=== PATIENT | female | born 1965 | race Caucasian/White ===

== ENCOUNTER → 2017-08-07 | Outpatient (CLI) | payer OTHER ==
--- NOTE | 2017-08-07 11:42 | US ---
EXAMINATION TYPE: US abdomen limited DATE OF EXAM: 08/07/2017 COMPARISON: Limited abdominal ultrasound June 14, 2016 CLINICAL HISTORY: ABN Labs R94.5. Abnormal labs EXAM MEASUREMENTS: Liver Length: 21.1 cm Gallbladder Wall: 0.3 cm CBD: 0.4 cm Right Kidney: 11.1 x 4.7 x 5.3 cm Pancreas: Obscured by bowel gas Liver: enlarged, attenuating, heterogeneous Gallbladder: no evidence of stones Evidence for sonographic Sierra's sign: No CBD: appears wnl Right Kidney: no evidence of hydronephrosis or mass Persistent heterogeneous hyperechoic appearance of liver without intrahepatic ductal dilatation. Eval uation for focal masses suboptimal due to the heterogeneity. IMPRESSION: Stable appearance of liver could reflect diffuse fatty infiltration or product of underly ing hepatocellular disease. Imaging guided random biopsy for tissue analysis can be performed if tam red.
== END | disposition home or self-care (01) ==
LOC: RADUSWWP 08:55
PROVIDERS: ATTEND Family Medicine
DX: R94.5 Abnormal results of liver function studies (principal)
CPT/HCPCS: 76705

== ENCOUNTER 2019-12-15 09:21 | Inpatient (IN) | payer OTHER ==
[2019-12-15] MEDS ORDERED: HYDROmorphone 0.5 MG/0.5 ML SYRINGE IVP PRN (11:11)
[2019-12-15 11:53] LABS: Glucose,Whole Blood 131 mg/dL (75-99)
[2019-12-15] MEDS ORDERED: INFLUENZA VACCINE (6 MOS+) 60 MCG/0.5 ML SYRINGE IM ONE (12:29)
[2019-12-15 12:30] LABS: ALT 56 U/L (4-34); AST 47 U/L (14-36); African American GFR (CKD) >90 (>60 ml/min/1.73 sqM); Albumin 3.6 g/dL (3.5-5.0); Alkaline Phosphatase 146 U/L (38-126); Anion Gap 10 mmol/L; Blood Urea Nitrogen 12 mg/dL (7-17); Calcium 8.7 mg/dL (8.4-10.2); Carbon Dioxide 30 mmol/L (22-30); Chloride 92 mmol/L (98-107); Glucose 116 mg/dL (74-99); Non-African American GFR(CKD) >90 (>60 ml/min/1.73 sqM); Sodium 132 mmol/L (137-145); Total Bilirubin 0.7 mg/dL (0.2-1.3); Total Protein 6.7 g/dL (6.3-8.2)
[2019-12-15 12:42] LABS: Anisocytosis Slight; HCT 42.3 % (34.0-46.0); HGB 13.5 gm/dL (11.4-16.0); MCH 25.8 pg (25.0-35.0); MCV 80.7 fL (80.0-100.0); Mean Platelet Volume 11.3; Platelet Count 291 k/uL (150-450); RBC 5.24 m/uL (3.80-5.40); RDW 16.2 % (11.5-15.5)
[2019-12-15 13:01] LABS: Band Neutrophils % 2 %; Lymphocytes # (M) 1.95 k/uL (1.0-4.8); Monocytes # (M) 1.05 k/uL (0-1.0); Neutrophils % (M) 79 %; Nucleated Red Blood Cells 0 /100 WBC (0-0); Total Cells Counted 200
[2019-12-15 13:02] LABS: Poikilocytosis (M) Present
[2019-12-15 13:22] LABS: Potassium 2.5 mmol/L (3.5-5.1)
[2019-12-15] MEDS ORDERED: Potassium Replacement Protocol 1 EACH MISC MISCELLANE PRN ×2 (13:24→15:13)
[2019-12-15] MEDS: SODIUM CHLORIDE 0.9% 1,000 ML IV SCH (13:27)
[2019-12-15] MEDS: POTASSIUM CHLORIDE 10 MEQ in WATER FOR INJECTION 1 100ML.BAG IVPB SCH ×6 (14:27→22:29)
[2019-12-15 15:04] LABS: ABG Base Excess 7.2 mmol/L; ABG HCO3 30 mmol/L (21-25); ABG Oxygen Saturation 91.3 % (94-97); ABG PCO2 34 mmHg (35-45); ABG PH 7.55 (7.35-7.45); ABG TCO2 31 mmol/L (19-24); Allen Test Performed? Yes
[2019-12-15 15:12] LABS: ABG PO2 57 mmHg (83-108)
[2019-12-15] MEDS ORDERED: Magnesium Replacement Protocol 1 EACH MISC MISCELLANE PRN (15:14)
--- NOTE | 2019-12-15 15:58 | CT ---
EXAMINATION TYPE: CT brain wo con DATE OF EXAM: 12/15/2019 HISTORY: Altered mental status. CT DLP: 1047.1 mGycm. Automated Exposure Control for Dose Reduction was Utilized. TECHNIQUE: CT scan of the head is performed without contrast. COMPARISON: None. FINDINGS: There is no acute intracranial hemorrhage or midline shift identified. There is diffuse v entricular and sulcal prominence consistent with diffuse age-related cerebral atrophy. There is low- attenuation in the periventricular white matter consistent with chronic small vessel ischemic change. Mild to moderate mucosal thickening involving the right maxillary sinus and posterior aspect right s phenoid sinus. Sucl-[id number]-onouldnw mucosal thickening right ethmoid sinuses. Some patchy fluid anteriorl y right sphenoid sinus. Globes are intact bilaterally. Left-sided paranasal sinuses are clear. Nasal septum deviated to left of midline. Asymmetric appearance to temporomandibular joints with narrowing on the left, there is asymmetric widening on the right coronal image 30. Correlate clinically . Posit ioning fairly satisfactory on sagittal images. IMPRESSION: No acute intracranial hemorrhage or midline shift. There is mild diffuse age-related ce rebral atrophy and chronic small vessel ischemic change noted. Acute on chronic right paranasal sinu s disease is present.
[2019-12-15] MEDS ORDERED: PIPERACILLIN-TAZOBACTAM 3.375 GM in SODIUM CHLORIDE 0.9% 100 ML IVPB SCH (16:00)
--- NOTE | 2019-12-15 16:17 | CT ---
EXAMINATION TYPE: CT soft tissue neck w con DATE OF EXAM: 12/15/2019 HISTORY: Mandibular abscess. COMPARISON: NONE CT DLP: 472.9 mGycm. Automated Exposure Control for Dose Reduction was Utilized. TECHNIQUE: CT scan of the neck is performed with IV Contrast, patient injected with 60 mL of Isovue 370, axial images are obtained, coronal and sagittal reformatted images are reviewed. FINDINGS: Please refer to same day CT chest report for complete details on upper lungs. Airway: There is debris or secretions filling the nasopharyngeal airway. Oropharyngeal airway shows m oderate lobulated narrowing for reference sagittal image 53. Some more secretions also identified wit hin the vallecula. Hypopharyngeal airway is patent. Thyroid gland within normal limits Parotid/submandibular glands: Submandibular glands show mild asymmetric right-sided enlargement presu med reactive inflammatory change from submandibular inflammation and abscess. Unremarkable left parot id gland. Carotid/Vascular Structures: No significant focal plaque or stenosis carotid bulb level bilaterally. Dominant right vertebral artery. Vertebral arteries are patent to basilar junction. Bovine type arch which is normal variant. Osseous Structures: Slight dextroconvex scoliotic curvature. Other: Asymmetric moderate to severe soft tissue swelling and subcutaneous edema right submandibular level. There is large irregular enhancing fluid collection posterior to the mandibular angle involvin g the portions of the parotid gland extending centrally past the midline into the prevertebral soft t issue. It is lobulated and/or multiloculated measuring nearly 8 cm transversely by 7 cm craniocaudal dimension by roughly just over 4 cm AP diameter axial Image 63 and coronal image 26. There is enlarge ment of the right-sided masseter muscles. There is adjacent adenopathy for reference and 1.6 x 1.3 cm lymph node anterior to the carotid and jugular vessels axial image 54 is noted. There is some midlin e shift of the airway estimated 9 mm coronal image 29. Fullness of the right sided palatine tonsil wi th mucosal enhancement and fullness of the right fossa of Rosenmuller in the posterior nasopharynx ax ial image 70 are both noted. IMPRESSION: Significant right-sided multiloculated abscess as detailed above extending past left of m idline causing mass effect on the nasopharyngeal and oropharyngeal airway. Critical results communicated to patient's nurse via telephone at time of dictation. A Red level critical message alert has been initiated for Israel Anderson MD via the [employer] Critical Results System on 12/15/2019 4:15 PM. This message alert has been sent to Israel Anderson MD via the preferences provided by the clinician for the receipt of Radiology Critical Findings. Message ID [id number].
[2019-12-15] MEDS ORDERED: DEXAMETHASONE SOD PHOSPHATE 10 MG/ML 1 ML VIAL IV STA ×2 (16:21→21:28)
--- NOTE | 2019-12-15 16:29 | P.CNPUL ---
History of Present Illness Consult date: 12/15/19 Reason for consult: dyspnea, COPD, hypoxemia Chief complaint: Shortness of breath and right oral facial swelling History of present illness: This is a 54-year-old female with extensive history of smoking and nicotine abus e has a baseline COPD, patient also has a history of type 2 diabetes mellitus with history of hypertension and hypertensive cardiovascular disease has been on Coumadin as well with history of chronic persistent asthma hypothyroidism came into the hospital about 2-3 day history of increased swelling on the right face and mandibular area patient noted to be short of breath and hypoxia I was asked to evaluate the patient further and arterial blood gas was performed revealed metabolic and respiratory alkalosis along with hypoxia patient has been recommended to be placed on airflow patient's computed tomography scan is positive for large mandibular abscess patient is now being transferred to the ICU oral surgery on consult patient likely will undergo surgery later on today care plan discussed with infectious disease as well Review of Systems All systems: negative Past Medical History Past Medical History: Diabetes Mellitus, Eye Disorder, Fibromyalgia, Hypertension, Osteoarthritis (OA), Seizure Disorder, Thyroid Disorder, Vascular Disorder Additional Past Medical History / Comment(s): NIDDM type II, last seizure 12/2013, hypothyroid, PVD/PAD, bilateral eyes astigmatic, migraines, pa lpitations, anemia, chronic cough, seasonal allergies, sinus problems, hemorrhoids, RLS, arthritis in multiple joints, chronic back pain, L sided sciatica, bilateral carpal tunnel syndrome, past fractured tailbone, UTI, occasional urine incontinence, R foot cellulitis/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 Past Anesthesia/Blood Transfusion Reactions: No Reported Reaction Additional Past Anesthesia/Blood Transfusion Reaction / Comment(s): Pt has received blood in the past without reaction. Smoking Status: Current every day smoker - Past Family History Father Family Medical History: COPD Additional Family Medical History / Comment(s): Father of COPD. He was a smoker. Mother Family Medical History: No Reported History Additional Family Medical History / Comment(s): Mother is 87yrs old and healthy. Medications and Allergies Home Medications Medication Instructions Recorded Confirmed Type DULoxetine HCL [Cymbalta] 60 mg PO BID 03/23/14 12/15/19 History Ergocalciferol [Vitamin D2 50,000 unit PO WE 03/23/14 12/15/19 History (DRISDOL)] Hydrochlorothiazide [Hydrodiuril] 25 mg PO DAILY 03/23/14 12/15/19 History Levothyroxine Sodium [Synthroid] 125 mcg PO DAILY 03/23/14 12/15/19 History Montelukast [Singulair] 10 mg PO DAILY 03/23/14 12/15/19 History Pregabalin [Lyrica] 75 mg PO BID 03/23/14 12/15/19 History Topiramate [Topamax] 50 mg PO DAILY 03/23/14 12/15/19 History amLODIPine [Norvasc] 10 mg PO DAILY 03/23/14 12/15/19 History Rivastigmine Tartrate 3 mg PO DAILY 09/04/16 12/15/19 History [Rivastigmine] clonazePAM [Clonazepam] 1 mg PO QAM 09/04/16 12/15/19 History clonazePAM [Clonazepam] 2 mg PO HS 09/04/16 12/15/19 History metFORMIN HCL [Glucophage] 500 mg PO DAILY 09/04/16 12/15/19 History Lurasidone [Latuda] 80 mg PO DAILY 12/15/19 12/15/19 History Warfarin [Coumadin] 5 mg PO DAILY 12/15/19 12/15/19 History rOPINIRole HCL [Requip] 1 mg PO BID 12/15/19 12/15/19 History traMADol HCL [Ultram] 50 mg PO DAILY 12/15/19 12/15/19 History Allergies Allergy/AdvReac Type Severity Reaction Status Date / Time No Known Allergies Allergy Verified 12/15/19 11:32 Physical Exam Vitals: Vital Signs Temp Pulse Resp BP Pulse Ox 12/15/19 13:39 92 L 12/15/19 09:55 100.5 F H 77 18 115/69 92 L Intake and Output 12/15/19 12/15/19 12/15/19 06:59 14:59 22:59 Other: Weight 82 kg - Constitutional General appearance: average body habitus, disheveled, mild distress - EENT Limited oral visibility is present due to swelling of the face and abscess in right mandibular region Eyes: PERRLA ENT: pharyngeal erythema, tonsillar swelling Ears: bilateral: normal - Respiratory Respiratory: bilateral: diminished, negative: dullness, rales, rhonchi, wheezing, prolonged expiration, prolonged inspiration - Cardiovascular Rhythm: regular Heart sounds: normal: S1, S2 - Gastrointestinal General gastrointestinal: normal bowel sounds - Integumentary Integumentary: normal turgor - Neurologic Neurologic: CNII-XII intact - Musculoskeletal Musculoskeletal: gait normal, generalized weakness, strength equal bilaterally - Psychiatric Psychiatric: A&O x's 3, appropriate affect, intact judgment & insight Results - Laboratory Findings CBC and BMP: 12/15/19 11:36 12/15/19 11:36 PT/INR, D-dimer D-Dimer 0.41 mg/L FEU (<0.60) 12/15/19 11:36 Abnormal lab findings: Abnormal Labs 12/15/19 12/15/19 12/15/19 11:36 11:36 11:49 WBC 15.0 H RDW 16.2 H Neutrophils # (Manual) 12.10 H Monocytes # (Manual) 1.05 H Sodium 132 L Potassium 2.5 L* Chloride 92 L Glucose 116 H POC Glucose (mg/dL) 131 H AST 47 H ALT 56 H Alkaline Phosphatase 146 H - Diagnostic Findings Additional studies: Computed tomography scan of the neck and reviewed revealing large mandibular abscess on the right side Assessment and Plan Assessment: Large mandibular abscesses on the right side Severe sepsis related to that Acute hypoxic respiratory failure multifactorial processes including sepsis due to mandibular abscess and Baseline COPD Severe hypokalemia Metabolic and respiratory alkalosis due to hyperventilation and hypokalemia Morbid obesity Anticoagulated On Coumadin Plan: Breathing treatments Broad-spectrum Antibiotics with anaerobic coverage ID and oral surgery consult Airvo high flow oxygen Ammann keep saturation over 90-93% Transferred to ICU Replace potassium Check PT/INR Gentle rehydration Further recommendations pending plan of care as per clinical response of the patient Time with Patient: Greater than 30
--- NOTE | 2019-12-15 16:43 | CT ---
EXAMINATION TYPE: CT chest angio for PE DATE OF EXAM: 12/15/2019 COMPARISON: NONE HISTORY: Shortness of breath. CT DLP: 424.5 mGycm. Automated Exposure Control for Dose Reduction was Utilized. CONTRAST: CTA scan of the thorax is performed with IV Contrast, patient injected with 60 mL of Isovue 370, pulm onary embolism protocol. MIP Images are created on CT scanner and reviewed. FINDINGS: LUNGS: Significant respiratory motion artifact degradation makes evaluation suboptimal. Dependent ate lectasis bilateral lower lobes. There are additional areas of consolidation and/or atelectasis branch service representative ior right greater than left bases. No pleural effusion or pneumothorax noted bilaterally. There is doss spected 9 x 7 mm right basilar nodule axial image 99 that warrants follow-up. MEDIASTINUM: There is suboptimal study with significant respiratory motion artifact degradation in ad dition there is heterogeneity with near equal contrast in right and left heart systems, there is no l arge saddle central pulmonary embolism. Smaller segmental and subsegmental PE not entirely excluded o n this exam. There are no greater than 1 cm hilar or mediastinal lymph nodes. Prominent but subcentim eter prevascular and pericarinal lymph nodes are present. Mild cardiomegaly. Trace pericardial effusi on anterior inferior right aspect. OTHER: Liver are diffusely low dense consistent with fatty infiltration. IMPRESSION: 1. Suboptimal study without central pulmonary embolism. Smaller segmental and subsegmental PE cannot be excluded on this exam. 2. Cardiomegaly with scattered areas of atelectasis. Additional areas of consolidation and/or atelect asis posterior right greater than left bases present. Correlate for multifocal pneumonia. 3. Suboptimal evaluation of subcentimeter nodules due to patient's inability to hold breath. Suspicio us 9 x 7 mm right basilar nodule noted. Follow-up imaging advised when patient is more clinically sta ble to reassess.
[2019-12-15 16:56] LABS: Glucose,Whole Blood 110 mg/dL (75-99)
[2019-12-15 17:20] LABS: INR 6.9 (<1.2)
[2019-12-15] MEDS ORDERED: PHYTONADIONE 10 MG in SODIUM CHLORIDE 0.9% 50 ML IVPB STA (17:47)
[2019-12-15] MEDS ORDERED: LIDOCAINE 2% (PF) 20 MG/ML 5 ML VIAL INHALATION ONE (18:58)
[2019-12-15] MEDS ORDERED: ALBUTEROL NEBULIZED 2.5 MG/3 ML INHALATION STA (18:59)
[2019-12-15] MEDS ORDERED: fentaNYL (PF) 50 MCG/ML 2 ML AMP ONE (19:17)
[2019-12-15] MEDS ORDERED: MIDAZOLAM 2 MG/2 ML VIAL ONE (19:17)
[2019-12-15] MEDS ORDERED: ROCURONIUM BROMIDE 10 MG/ML 10 ML VIAL IV ONE (19:17)
[2019-12-15] MEDS ORDERED: PROPOFOL 10 MG/ML 20 ML VIAL IV ONE (19:17)
[2019-12-15] MEDS ORDERED: DEXAMETHASONE SOD PHOS (MDV) 100 MG/10 ML VIAL ONE (19:17)
[2019-12-15] MEDS ORDERED: HYDROmorphone (PF) 1 MG/ML ONE (19:17)
[2019-12-15] MEDS ORDERED: LIDOCAINE 1% INJ 10MG/ML (20 ML MDV) ONE (19:17)
[2019-12-15] MEDS ORDERED: ONDANSETRON 4 MG/2 ML VIAL ONE (19:17)
[2019-12-15] MEDS ORDERED: SODIUM CHLORIDE 0.9% 1,000 ML IV ONE ×3 (19:25)
[2019-12-15] MEDS ORDERED: LIDOCAINE 2%-EPI 1:100,000 20 ML VIAL SQ ONE ×2 (19:51)
[2019-12-15] MEDS ORDERED: SODIUM CHLORIDE 0.9% 100 ML with ceFAZolin 2,000 MG IV ONE ×2 (19:54)
[2019-12-15] MEDS ORDERED: SODIUM CHLORIDE 0.9% 50 ML with CLINDAMYCIN 600 MG IV ONE ×4 (20:22)
[2019-12-15] MEDS ORDERED: NALOXONE 0.4 MG/ML 1 ML VIAL IV PRN (20:44)
[2019-12-15] MEDS: PROPOFOL 1,000 MG in EMPTY BAG 1 BAG IV SCH (22:00)
[2019-12-15 22:06] LABS: Glucose,Whole Blood 184 mg/dL (75-99)
[2019-12-15 22:13] LABS: INR 1.3 (<1.2); Prothrombin Time 12.7 sec (9.0-12.0)
[2019-12-15 22:16] LABS: ABG Base Excess 6.5 mmol/L; ABG HCO3 30 mmol/L (21-25); ABG Oxygen Saturation 93.6 % (94-97); ABG PCO2 40 mmHg (35-45); ABG PH 7.48 (7.35-7.45); ABG PO2 67 mmHg (83-108); ABG TCO2 31 mmol/L (19-24); Allen Test Performed? Yes
[2019-12-15] MEDS: AMPICILLIN-SULBACTAM 3 GM in SODIUM CHLORIDE 0.9% 100 ML IVPB SCH (22:27)
--- NOTE | 2019-12-15 23:40 | P.CONS ---
History of Present Illness - Reason for Consult Consult date: 12/15/19 right lower jaw abscess Requesting physician: Israel Anderson - Chief Complaint right lower jaw pain and swelling x week - History of Present Illness Patient is a 54-year-old female who has been admitted to the hospital from the PCP office to home she presented with pain and swelling of the right lower jaw that has been going on for the last 1 week patient said about a week ago she ate some peanuts and 1 of them may have stuck in her right lower jaw tooth for suture having the pain pain was initially throbbing that has increased in severity with intensity almost 10 out of 10 by the time he presented to the hospital with associated swelling of her right lower jaw patient had denies any difficulty swallowing or difficulty breathing and has been complaining of subjective fever and chills on admission to the hospital L fever 100.5 patient white count was elevated 15,000 kidney function was normal liver enzymes mildly elevated patient has been admitted to hospital he was started on Zosyn for stent was consulted for further recommendation for antibiotic patient did have a CT of the brain and soft tissue neck obtained which was reviewed with radiologist and did shows markedly enhancing fluid collection posterior to the mandibular angle in 1 portion of the parotid gland extending centrally of the midline into the prevertebral soft tissue. Review of Systems Positive point has been mentioned in HPI rest of the systems are negative Past Medical History Past Medical History: Diabetes Mellitus, Eye Disorder, Fibromyalgia, Hypertension, Osteoarthritis (OA), Seizure Disorder, Thyroid Disorder, Vascular Disorder Additional Past Medical History / Comment(s): NIDDM type II, last seizure 12/2013, hypothyroid, PVD/PAD, bilateral eyes astigmatic, migraines, palpi tations, anemia, chronic cough, seasonal allergies, sinus problems, hemorrhoids, RLS, arthritis in multiple joints, chronic back pain, L sided sciatica, bilateral carpal tunnel syndrome, past fractured tailbone, UTI, occasional urine incontinence, R foot cellulitis/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 Past Anesthesia/Blood Transfusion Reactions: No Reported Reaction Additional Past Anesthesia/Blood Transfusion Reaction / Comm: Pt has received blood in the past without reaction. Smoking Status: Current every day smoker - Past Family History Father Family Medical History: COPD Additional Family Medical History / Comment(s): Father of COPD. He was a smoker. Mother Family Medical History: No Reported History Additional Family Medical History / Comment(s): Mother is 87yrs old and healthy. Medications and Allergies Home Medications Medication Instructions Recorded Confirmed Type DULoxetine HCL [Cymbalta] 60 mg PO BID 03/23/14 12/15/19 History Ergocalciferol [Vitamin D2 50,000 unit PO WE 03/23/14 12/15/19 History (DRISDOL)] Hydrochlorothiazide [Hydrodiuril] 25 mg PO DAILY 03/23/14 12/15/19 History Levothyroxine Sodium [Synthroid] 125 mcg PO DAILY 03/23/14 12/15/19 History Montelukast [Singulair] 10 mg PO DAILY 03/23/14 12/15/19 History Pregabalin [Lyrica] 75 mg PO BID 03/23/14 12/15/19 History Topiramate [Topamax] 50 mg PO DAILY 03/23/14 12/15/19 History amLODIPine [Norvasc] 10 mg PO DAILY 03/23/14 12/15/19 History Rivastigmine Tartrate 3 mg PO DAILY 09/04/16 12/15/19 History [Rivastigmine] clonazePAM [Clonazepam] 1 mg PO QAM 09/04/16 12/15/19 History clonazePAM [Clonazepam] 2 mg PO HS 09/04/16 12/15/19 History metFORMIN HCL [Glucophage] 500 mg PO DAILY 09/04/16 12/15/19 History Lurasidone [Latuda] 80 mg PO DAILY 12/15/19 12/15/19 History Warfarin [Coumadin] 5 mg PO DAILY 12/15/19 12/15/19 History rOPINIRole HCL [Requip] 1 mg PO BID 12/15/19 12/15/19 History traMADol HCL [Ultram] 50 mg PO DAILY 12/15/19 12/15/19 History Allergies Allergy/AdvReac Type Severity Reaction Status Date / Time No Known Allergies Allergy Verified 12/15/19 11:32 Physical Exam Vitals: Vital Signs Temp Pulse Resp BP Pulse Ox 12/15/19 16:07 97.6 F 73 12/15/19 15:36 96 12/15/19 14:20 99.4 F 92 16 120/67 92 L 12/15/19 13:39 92 L 12/15/19 09:55 100.5 F H 77 18 115/69 92 L Intake and Output 12/15/19 12/15/19 12/15/19 06:59 14:59 22:59 Intake Total 540 Balance 540 Intake: Oral 540 Other: Weight 82 kg GENERAL DESCRIPTION: Middle-aged female lying in bed, no distress. No tachypnea or accessory muscle of respiration use. HEENT: Shows Pallor , no scleral icterus. Oral mucous membrane is dry. Right hand which is currently swollen and tender to touch no redness NECK: Trachea central, no thyromegaly. LUNGS: Unlabored breathing. Clear to auscultation anteriorly. No wheeze or crackle. HEART: S1, S2, regular rate and rhythm. ABDOMEN: Soft, no tenderness , guarding or rigidity EXTREMITIES: No edema of feet. SKIN: No rash, no masses palpable. NEUROLOGICAL: The patient is awake, alert, oriented x3, mood and affect normal. Results CBC & Chem 7: 12/15/19 11:36 12/15/19 11:36 Labs: Abnormal Lab Results - Last 24 Hours (Table) 12/15/19 12/15/19 12/15/19 Range/Units 11:36 11:36 11:49 WBC 15.0 H (3.8-10.6) k/uL RDW 16.2 H (11.5-15.5) % Neutrophils # (Manual) 12.10 H (1.3-7.7) k/uL Monocytes # (Manual) 1.05 H (0-1.0) k/uL ABG pH (7.35-7.45) ABG pCO2 (35-45) mmHg ABG pO2 (83-108) mmHg ABG HCO3 (21-25) mmol/L ABG Total CO2 (19-24) mmol/L ABG O2 Saturation (94-97) % Sodium 132 L (137-145) mmol/L Potassium 2.5 L* (3.5-5.1) mmol/L Chloride 92 L (98-107) mmol/L Glucose 116 H (74-99) mg/dL POC Glucose (mg/dL) 131 H (75-99) mg/dL AST 47 H (14-36) U/L ALT 56 H (4-34) U/L Alkaline Phosphatase 146 H (38-126) U/L 12/15/19 Range/Units 15:00 WBC (3.8-10.6) k/uL RDW (11.5-15.5) % Neutrophils # (Manual) (1.3-7.7) k/uL Monocytes # (Manual) (0-1.0) k/uL ABG pH 7.55 H (7.35-7.45) ABG pCO2 34 L (35-45) mmHg ABG pO2 57 L* (83-108) mmHg ABG HCO3 30 H (21-25) mmol/L ABG Total CO2 31 H (19-24) mmol/L ABG O2 Saturation 91.3 L (94-97) % Sodium (137-145) mmol/L Potassium (3.5-5.1) mmol/L Chloride (98-107) mmol/L Glucose (74-99) mg/dL POC Glucose (mg/dL) (75-99) mg/dL AST (14-36) U/L ALT (4-34) U/L Alkaline Phosphatase (38-126) U/L Assessment and Plan Assessment: 1-patient admitted to hospital with sepsis in this patient with a fever elevated white count source is right abdominal abscess and likely of dental origin and will need to cover for the mixed octavio of the oral cavity as possibly related to infected tooth. (1) Sepsis Current Visit: Yes Status: Acute Code(s): A41.9 - SEPSIS, UNSPECIFIED ORGANISM SNOMED Code(s): 43877705 (2) Abscess, jaw Current Visit: Yes Status: Acute Code(s): M27.2 - INFLAMMATORY CONDITIONS OF JAWS SNOMED Code(s): 95362206 Plan: 1-patient care was discussed in detail with the oral surgeon on the phone patient has been made n.p.o. for emergent surgery this evening he requested 1 dose of Decadron 10 mg x 1 which was given to the patient 2-discontinue Zosyn 3-start the patient on Unasyn 3 g every 6 hours 4-both aerobic and anaerobic culture at the time of surgical drainage of this will discuss with oral surgeon We will follow on clinical condition and cultures to further adjust medication if needed Thank you for this consultation we will follow the patient along with you Time with Patient: Greater than 30
[2019-12-16] MEDS: INSULIN ASPART (NovoLOG) 100 UNIT/ML VIAL SQ SCH ×4 (00:19→18:17)
[2019-12-16] MEDS: HEPARIN SODIUM,PORCINE 5,000 UNIT/ML 1 ML VIAL SQ SCH ×3 (00:20→16:59)
[2019-12-16 00:25] LABS: Glucose,Whole Blood 192 mg/dL (75-99)
[2019-12-16] MEDS: SODIUM CHLORIDE 0.9% 1,000 ML IV SCH ×4 (01:38→17:07)
[2019-12-16] MEDS: PROPOFOL 1,000 MG in EMPTY BAG 1 BAG IV SCH ×3 (03:25→18:55)
[2019-12-16 03:27] LABS: African American GFR (CKD) >90 (>60 ml/min/1.73 sqM); Anion Gap 9 mmol/L; Anisocytosis Slight; Blood Urea Nitrogen 12 mg/dL (7-17); Calcium 8.7 mg/dL (8.4-10.2); Carbon Dioxide 30 mmol/L (22-30); Chloride 99 mmol/L (98-107); Glucose 162 mg/dL (74-99); HCT 35.8 % (34.0-46.0); HGB 11.4 gm/dL (11.4-16.0); MCH 25.7 pg (25.0-35.0); MCHC 31.8 g/dL (31.0-37.0); MCV 80.6 fL (80.0-100.0); Magnesium 2.2 mg/dL (1.6-2.3); Mean Platelet Volume 10.7; Non-African American GFR(CKD) >90 (>60 ml/min/1.73 sqM); Platelet Count 279 k/uL (150-450); Potassium 2.9 mmol/L (3.5-5.1); RBC 4.44 m/uL (3.80-5.40); RDW 16.3 % (11.5-15.5); Sodium 138 mmol/L (137-145); WBC 12.4 k/uL (3.8-10.6)
[2019-12-16] MEDS ORDERED: Potassium Replacement Protocol 1 EACH MISC MISCELLANE PRN (03:43)
[2019-12-16 04:02] LABS: Band Neutrophils % 18 %; Lymphocytes # (M) 0.74 k/uL (1.0-4.8); Neutrophils % (M) 73 %; Nucleated Red Blood Cells 0 /100 WBC (0-0); Total Cells Counted 200
[2019-12-16 04:03] LABS: Toxic Granulation Present
[2019-12-16] MEDS: POTASSIUM CHLORIDE 10 MEQ in WATER FOR INJECTION 1 100ML.BAG IVPB SCH ×10 (04:16→21:47)
[2019-12-16] MEDS: AMPICILLIN-SULBACTAM 3 GM in SODIUM CHLORIDE 0.9% 100 ML IVPB SCH ×3 (05:06→18:19)
[2019-12-16 05:20] LABS: ABG Base Excess 7.2 mmol/L; ABG HCO3 30 mmol/L (21-25); ABG Oxygen Saturation 98.9 % (94-97); ABG PCO2 39 mmHg (35-45); ABG PO2 123 mmHg (83-108); ABG TCO2 32 mmol/L (19-24); Allen Test Performed? Yes
[2019-12-16 05:29] LABS: INR 1.1 (<1.2); Prothrombin Time 11.4 sec (9.0-12.0)
[2019-12-16 06:13] LABS: Glucose,Whole Blood 172 mg/dL (75-99)
[2019-12-16] MEDS: PANTOPRAZOLE 40 MG/10 ML VIAL IV SCH (08:42)
--- NOTE | 2019-12-16 08:45 | XR ---
EXAMINATION TYPE: XR chest 1V portable DATE OF EXAM: 12/16/2019 COMPARISON: 03/30/2014 HISTORY: ET tube placement TECHNIQUE: Single frontal view of the chest is obtained. FINDINGS: Bilateral consolidation and pleural effusion. Central interstitial pattern. No pneumothora x. Heart is enlarged. Atherosclerotic change aorta. ET tube approximately 4 cm above sena. IMPRESSION: 1. ET tube 4 cm above sena. 2. Bilateral infiltrate and pleural effusion correlate for CHF versus pneumonia.
--- NOTE | 2019-12-16 10:44 | OP ---
OPERATIVE REPORT DATE OF PROCEDURE: 12/15/2019 PREOPERATIVE DIAGNOSES: 1. Abscessed tooth #31. 2. Right submandibular abscess. 3. Right lateral pharyngeal space abscess. 4. Right buccal space abscess. 5. Right tricot knitting machine operator space abscess. 6. tonsillar space POSTOPERATIVE DIAGNOSES: 1. Abscessed tooth #31. 2. Right submandibular abscess. 3. Right lateral pharyngeal space abscess. 4. Right buccal space abscess. 5. Right tricot knitting machine operator space abscess. 6. tonsillar space PROCEDURE: 1. Extraction of tooth #_31____. 2. I and D of right submandibular space abscess. 3. I and D of the right lateral pharyngeal space abscess. 4. I and D of right buccal space abscess. 5. I and D of the right tricot knitting machine operator space abscess. 6. tonsillar space SURGEON: Dr. Quan. ANESTHESIA: General via oral endotracheal intubation. ESTIMATED BLOOD LOSS: 5 mL. FLUIDS: Crystalloid. DRAINS: One was placed into the right submandibular space, into right tosnsillar space, right lateral pharyngeal space and right tricot knitting machine operator space. A total of 4 drains were placed. Cultures were taken aerobic and anaerobic. INDICATIONS FOR PROCEDURE: The patient is a 54-year-old female who states that she bit down on a peanut approximately 1 week ago, noticed a crack on the lower right with associated pain. Subsequently, swelling of the right mandible ensued and she presented to her primary care physician. He referred her to the ER where a clinical and radiographic exam was performed. The CT scan showed a large swelling in the right pharyngeal perimandibular and parotid regions. The patient was having difficulty breathing. She was handling her secretions. She was admitted to the ICU where she then was prepped for surgery. The patient received 6 units of FFP and vitamin K prior to surgery. PROCEDURE: The patient was taken the operating room, placed on operating table in the semi- supine position. The patient was then intubated awake fiberoptically. Once the patient was intubated, a general plane of anesthesia was maintained, and the tube was secured in the usual fashion. The patient was then placed in the supine position and was prepped in the usual manner for this procedure. The surgeon approached the operative field and a marking pen was used to make a demarcation in the right submandibular region. A 15 blade was then utilized to make a 1.5 cm incision through the skin and subcutaneous tissue down to the platysma. Blunt dissection then ensued with long hemostats up to the inferior border of the mandible and subsequently into the submandibular space and up into the lateral pharyngeal region. Serosanguineous discharge was noted. There was no pus. Approximately 5 mL of drainage ensued. A quarter-inch Jose M drain was then placed into the spaces. This was secured with 2-0 nylon. Attention was then directed intraorally where tooth #31 was extracted utilizing forceps technique. An incision was then made along the leading edge of the ramus into the third molar region. Dissection medially and laterally along the ramus into the tricot knitting machine operator space to the posterior border of the ramus into the retromandibular region was performed. Once again, serosanguineous drainage was noted. Dissection medially through the same incision entered the lateral pharyngeal space. The right tonsillar region was very firm and had started to spontaneously drain. A Jose M drain was placed into the tonsillar area in addition to the medial and lateral aspect of the ramus region. These were secured with 3-0 silk suture. Aerobic and anaerobic cultures were then taken. A dressing was then placed over the submandibular region. The patient tolerated the procedure well without complication. The patient was then transferred to the ICU intubated overnight. MMODL / IJN: [id number] / PADMINI
[2019-12-16] MEDS: CHLORHEXIDINE GLUCONATE 15 ML CUP MUCOUS MEM SCH ×2 (11:30→21:48)
[2019-12-16 11:40] LABS: Glucose,Whole Blood 129 mg/dL (75-99)
--- NOTE | 2019-12-16 15:37 | P.PN ---
Subjective Progress Note Date: 12/16/19 (Critical care time 35 minutes) Principal diagnosis: arge mandibular abscesses on the right side Severe sepsis related to that Acute hypoxic respiratory failure multifactorial processes including sepsis due to mandibular abscess and Baseline COPD Severe hypokalemia Metabolic and respiratory alkalosis due to hyperventilation and hypokalemia Morbid obesity Anticoagulated On Coumadin 12/16/2019, patient seen eval examined during the rounds labs reviewed medications reviewed care plan discussed with the staff at length, a shunt is postop day #1 of the abscess tooth extraction, right submandibular abscess with abscesses involving pharyngeal buccaland warehouse assistant space along with tonsillarpatient underwent extraction of tooth followed by incision and drainage of the soft tissue area around the submandible right pharyngealand right warehouse assistant space, for details look at the operative report, patient has extensive swelling, had hard time in being intubated, O G-tube has not been inserted, patient has a #6-Tajik endotracheal tube, she is awake and comfortable on propofol drip hemodynamic status stable bradycardic in rate of 14 is for the stable blood pressure and not on vasopressors remains on IV Unasyn, culture results and reports are pending, patient is high risk for rapid weaning and extubation will keep it intubated for another 72-96 hours, we'll start feed ing through the PICC line which will be obtained INR has been consulted dietitian has been consulted, FiO2 have been decreased down to 60% BP remains 8, once FiO2 is 30-40% and will decrease the PEEP to 5 continue other vent setting patient does have slight respiratory alkalosis, with hypokalemia which is replaced protocol, white cell count is decreased to 12.4, This is a 54-year-old female with extensive history of smoking and nicotine abuse has a baseline COPD, patient also has a history of type 2 diabetes mellitus with history of hypertension and hypertensive cardiovascular disease has been on Coumadin as well with history of chronic persistent asthma hypothyroidism came into the hospital about 2-3 day history of increased swelling on the right face and mandibular area patient noted to be short of breath and hypoxia I was asked to evaluate the patient further and arterial blood gas was performed revealed metabolic and respiratory alkalosis along with hypoxia patient has been recommended to be placed on airflow patient's computed tomography scan is positive for large mandibular abscess patient is now being transferred to the ICU oral surgery on consult patient likely will undergo surgery later on today care plan discussed with infectious disease as well Objective - Vital Signs Vital signs: Vital Signs Temp 98.9 F 12/16/19 12:00 Pulse 41 L 12/16/19 15:00 Resp 18 12/16/19 15:00 BP 131/68 12/16/19 15:00 Pulse Ox 96 12/16/19 15:00 Intake & Output 12/15/19 12/16/19 12/16/19 18:59 06:59 18:59 Intake Total 890 3602.636 1232.492 Output Total 0 1105 530 Balance 890 2497.636 702.492 Weight 82 kg 85.4 kg 85.4 kg Intake: IV 150 729 750 Sodium Chloride 0.9% 1, 750 000 ml @ 100 mls/hr IV . Q10H [facility] Rx#:[id number] Sodium Chloride 0.9% 1, 150 75 000 ml @ 75 mls/hr IV . [id number] [facility] Rx#:[id number] Intake, IV Titration 200 1173.636 482.492 Amount Ampicillin-Sulbactam 3 gm 100 In Sodium Chloride 0.9% 100 ml @ 200 mls/hr IVPB Q6HR [facility] Rx#:[id number] Potassium Chloride 10 meq 200 100 In Water For Injection 1 100ml.bag @ 100 mls/hr IVPB Q1HR [facility] Rx#: [id number] Potassium Chloride 10 meq 100 400 In Water For Injection 1 100ml.bag @ 100 mls/hr IVPB Q1HR [facility] Rx#: [id number] Propofol 1,000 mg In 73.636 82.492 Empty Bag 1 bag @ Titrate IV .Q0M [facility] Rx#: [id number] Sodium Chloride 0.9% 1, 800 000 ml @ 100 mls/hr IV . Q10H [facility] Rx#:[id number] Oral 540 Blood Product 1700 Ffp 24 Cpd Unit 276 [id number] Ffp 24 Cpd Unit 312 [id number] Ffp 24 Cpd Unit 291 [id number] Ffp 24 Cpd Unit 312 [id number] Ffp 24 Cpd Unit 296 [id number] Ffp 24 Pher Acda Unit 213 [id number] Output: Urine 0 1055 530 Estimated Blood Loss 50 Other: Voiding Method Indwelling Catheter Indwelling Catheter - Constitutional Constitutional Comment(s): Intubated on propofol RASS -1 - Constitutional General appearance: average body habitus, disheveled, mild distress - EENT Limited oral visibility is present due to swelling of the face and abscess in right mandibular region Eyes: PERRLA ENT: pharyngeal erythema, tonsillar swelling Ears: bilateral: normal - Respiratory Respiratory: bilateral: diminished, negative: dullness, rales, rhonchi, wheezing, prolonged expiration, prolonged inspiration - Cardiovascular Rhythm: regular Heart sounds: normal: S1, S2 - Gastrointestinal General gastrointestinal: normal bowel sounds - Integumentary Integumentary: normal turgor - Neurologic Neurologic: CNII-XII intact - Musculoskeletal Musculoskeletal: gait normal, generalized weakness, strength equal bilaterally - Psychiatric Psychiatric: Awake and alert calm and comfortable - Labs CBC & Chem 7: 12/16/19 02:33 12/16/19 14:26 Labs: Abnormal Lab Results - Last 24 Hours (Table) 12/15/19 12/15/19 12/15/19 Range/Units 11:36 16:44 21:45 WBC (3.8-10.6) k/uL RDW (11.5-15.5) % Neutrophils # (Manual) (1.3-7.7) k/uL Lymphocytes # (Manual) (1.0-4.8) k/uL PT 71.0 H 12.7 H (9.0-12.0) sec INR 6.9 H* 1.3 H (<1.2) ABG pH (7.35-7.45) ABG pO2 (83-108) mmHg ABG HCO3 (21-25) mmol/L ABG Total CO2 (19-24) mmol/L ABG O2 Saturation (94-97) % Potassium (3.5-5.1) mmol/L Glucose (74-99) mg/dL POC Glucose (mg/dL) 110 H (75-99) mg/dL 12/15/19 12/15/19 12/16/19 Range/Units 21:54 22:13 00:13 WBC (3.8-10.6) k/uL RDW (11.5-15.5) % Neutrophils # (Manual) (1.3-7.7) k/uL Lymphocytes # (Manual) (1.0-4.8) k/uL PT (9.0-12.0) sec INR (<1.2) ABG pH 7.48 H (7.35-7.45) ABG pO2 67 L (83-108) mmHg ABG HCO3 30 H (21-25) mmol/L ABG Total CO2 31 H (19-24) mmol/L ABG O2 Saturation 93.6 L (94-97) % Potassium (3.5-5.1) mmol/L Glucose (74-99) mg/dL POC Glucose (mg/dL) 184 H 192 H (75-99) mg/dL 12/16/19 12/16/19 12/16/19 Range/Units 02:33 02:33 05:18 WBC 12.4 H (3.8-10.6) k/uL RDW 16.3 H (11.5-15.5) % Neutrophils # (Manual) 11.20 H (1.3-7.7) k/uL Lymphocytes # (Manual) 0.74 L (1.0-4.8) k/uL PT (9.0-12.0) sec INR (<1.2) ABG pH 7.50 H (7.35-7.45) ABG pO2 123 H (83-108) mmHg ABG HCO3 30 H (21-25) mmol/L ABG Total CO2 32 H (19-24) mmol/L ABG O2 Saturation 98.9 H (94-97) % Potassium 2.9 L (3.5-5.1) mmol/L Glucose 162 H (74-99) mg/dL POC Glucose (mg/dL) (75-99) mg/dL 12/16/19 12/16/19 12/16/19 Range/Units 06:01 11:29 14:26 WBC (3.8-10.6) k/uL RDW (11.5-15.5) % Neutrophils # (Manual) (1.3-7.7) k/uL Lymphocytes # (Manual) (1.0-4.8) k/uL PT (9.0-12.0) sec INR (<1.2) ABG pH (7.35-7.45) ABG pO2 (83-108) mmHg ABG HCO3 (21-25) mmol/L ABG Total CO2 (19-24) mmol/L ABG O2 Saturation (94-97) % Potassium 3.1 L (3.5-5.1) mmol/L Glucose (74-99) mg/dL POC Glucose (mg/dL) 172 H 129 H (75-99) mg/dL Microbiology - Last 24 Hours (Table) 12/15/19 11:46 Blood Culture - Preliminary Blood No Growth after 24 hours 12/15/19 11:36 Blood Culture - Preliminary Blood No Growth after 24 hours 12/15/19 21:00 Gram Stain - Preliminary Thigh - Right Wound Culture - Preliminary 12/15/19 21:00 Anaerobic Culture - Preliminary Throat Assessment and Plan Assessment: Large mandibular abscesses on the right side Compromised upper airway Severe sepsis related to that Acute hypoxic respiratory failure multifactorial processes including sepsis due to mandibular abscess and Baseline COPD Severe hypokalemia Metabolic and respiratory alkalosis due to hyperventilation and hypokalemia Morbid obesity Plan: Follow-up on culture report Breathing treatments Broad-spectrum Antibiotics with anaerobic coverage ID and oral surgery consult Replace potassium as per protocol PICC line TPN DVT prophylaxis Peptic ulcer disease prophylaxis Keep ventilator and slow weaning as tolerated Gentle rehydration Further recommendations pending plan of care as per clinical response of the patient Time with Patient: Greater than 30
[2019-12-16] MEDS ORDERED: FUROSEMIDE 10 MG/ML 2 ML VIAL IV ONE (15:45)
[2019-12-16] MEDS: IPRATROPIUM-ALBUTEROL 3 ML NEB INHALATION SCH ×2 (16:15→19:27)
[2019-12-16 17:03] LABS: Ionized Calcium 4.8 mg/dL (4.5-5.3)
[2019-12-16 17:08] LABS: Albumin 3.3 g/dL (3.5-5.0); Phosphorus 2.9 mg/dL (2.5-4.5)
--- NOTE | 2019-12-16 17:47 | PN ---
PROGRESS NOTE DATE OF SERVICE: 12/16/2019 REASON FOR FOLLOWUP: Right lower jaw abscess. INTERVAL HISTORY: The patient was taken to the OR yesterday. The patient did have extensive debridement of the right lower jaw abscess with some extension to the pharyngeal area. The patient is currently intubated on the vent. She is hemodynamically stable. Not on any pressor support. FiO2 is down to 60%. No other changes reported by the nursing staff. PHYSICAL EXAMINATION: Blood pressure 131/68 with a pulse of 41, temperature 98.9. She is 96% on on 50% FiO2. General description is a middle-aged female lying in bed in no distress. The patient is orally intubated. LUNGS: Unlabored breathing. Clear to auscultation anteriorly. HEART: S1, S2. Regular rate and rhythm. ABDOMEN: Soft. No tenderness. LABS: Hemoglobin 11.4, white count 12.4, BUN of 12, creatinine 0.70. The blood culture has been negative. Right mandibular culture is currently pending. DIAGNOSTIC IMPRESSION AND PLAN: Patient with extensive right jaw abscess with extension to the peritonsillar area, status post extensive surgery by Oral Surgery. The patient is currently covered with Unasyn; to continue and will monitor her clinical course closely, adjusting antibiotic further on the basis of culture report. MMODL / IJN: [id number] /
[2019-12-16] MEDS ORDERED: MVI, ADULT NO.4 WITH VIT K 10 ML, TRACE (CONC-1ML/DOSE) 1 ML in AMINO ACID 4.25%-D10W+L... IV SCH ×3 (18:00)
[2019-12-16 18:19] LABS: Glucose,Whole Blood 119 mg/dL (75-99)
[2019-12-16] MEDS: HYDROmorphone 1 MG/ML 1 ML SYRINGE IVP PRN (18:39)
--- NOTE | 2019-12-16 19:38 | HP ---
HISTORY AND PHYSICAL This patient is a 54-year-old admitted to ICU for significant mandibular abscess causing restriction of the oxygen in her oropharyngeal tube, intubated due to extreme right oral facial swelling, status post tooth removal and abscess, incision and drainage per orthopedic surgeon. History of COPD, nicotine addiction, PAD. She was admitted with hypoxia and metabolic acidosis, respiratory alkalosis. Remains on the ventilator in the ICU at this time. REVIEW OF SYSTEMS: Fourteen-point review of systems negative except for mentioned in HPI. PAST MEDICAL HISTORY: Diabetes mellitus, PAD with toe removal in the past, hypothyroidism, seizure disorder, bipolar disorder, fibromyalgia, hypertension, osteoarthritis, migraines, allergic rhinitis, osteoarthritis, lumbar disease, fractured tailbone, urinary incontinence. SURGERIES: Uterine ablation, orthopedic surgery, right third toe amputation, colonoscopy, teeth extractions. FAMILY HISTORY: Father with COPD. Mother healthy. HOME MEDICINES: See list. ALLERGIES: NEGATIVE. PHYSICAL EXAMINATION: Temperature is 100.5, respiratory rate 18-25, blood pressure 115/69, oxygen 92% on room air. HEENT: Overweight, obese. Lungs show scattered wheeze x4. HEART: S1, S2. GI: Soft. Normal bowel sounds. INTEGUMENT: Normal skin turgor. NEUROLOGIC: Cranial nerves intact. MUSCULOSKELETAL: Gait normal. Generalized weakness. PSYCH: Alert, oriented. Intact judgment. LABS/IMAGING: White count 15, hemoglobin 13.5. Sodium 132, potassium of 2.5. D-dimer negative. CTs showed multiple abscesses in the right jaw mandible area. ASSESSMENT: 1. Large mandibular abscess, extremely large on the right side. 2. Severe sepsis secondary to that. 3. Acute hypoxemic respiratory failure. 4. Chronic obstructive pulmonary disease. 5. Nicotine addiction. 6. Severe hypokalemia. 7. Metabolic and respiratory alkalosis due to hyperventilation. 8. Hypokalemia. 9. Morbid obesity. 10.Anticoagulated on Coumadin. As mentioned, she is status post I&D. Infectious disease consult. Pulmonary consult. Wean off ventilator as possible. Broad-spectrum antibiotics. Replace potassium for severe hypokalemia. Rehydrate. Prognosis extremely guarded. MMODL / IJN: [id number] /
[2019-12-16 23:46] LABS: Glucose,Whole Blood 147 mg/dL (75-99)
[2019-12-17] MEDS: HEPARIN SODIUM,PORCINE 5,000 UNIT/ML 1 ML VIAL SQ SCH ×3 (00:16→18:54)
[2019-12-17] MEDS: HYDROmorphone 1 MG/ML 1 ML SYRINGE IVP PRN ×4 (00:16→21:43)
[2019-12-17] MEDS: INSULIN ASPART (NovoLOG) 100 UNIT/ML VIAL SQ SCH ×4 (00:17→19:05)
[2019-12-17] MEDS: AMPICILLIN-SULBACTAM 3 GM in SODIUM CHLORIDE 0.9% 100 ML IVPB SCH ×4 (00:32→19:03)
[2019-12-17] MEDS ORDERED: Potassium Replacement Protocol 1 EACH MISC MISCELLANE PRN ×2 (00:42→10:56)
[2019-12-17] MEDS: POTASSIUM CHLORIDE 10 MEQ in WATER FOR INJECTION 1 100ML.BAG IVPB SCH ×8 (00:50→15:52)
[2019-12-17 05:42] LABS: Glucose,Whole Blood 146 mg/dL (75-99)
[2019-12-17 05:48] LABS: Anisocytosis Slight; Basophils # (A) 0.1 k/uL (0-0.2); Basophils % (A) 1 %; Eosinophils % (A) 0 %; HCT 34.2 % (34.0-46.0); HGB 10.5 gm/dL (11.4-16.0); Hypochromasia Moderate; Lymphocytes # (A) 1.9 k/uL (1.0-4.8); Lymphocytes % (A) 20 %; MCH 25.7 pg (25.0-35.0); MCHC 30.6 g/dL (31.0-37.0); Mean Platelet Volume 10.6; Monocytes # (A) 0.5 k/uL (0-1.0); Monocytes % (A) 5 %; Neutrophils # (A) 6.6 k/uL (1.3-7.7); Neutrophils % (A) 69 %; Platelet Count 268 k/uL (150-450); RBC 4.07 m/uL (3.80-5.40); RDW 16.4 % (11.5-15.5); WBC 9.5 k/uL (3.8-10.6)
[2019-12-17 05:59] LABS: ALT 57 U/L (4-34); AST 38 U/L (14-36); African American GFR (CKD) >90 (>60 ml/min/1.73 sqM); Albumin 3.1 g/dL (3.5-5.0); Alkaline Phosphatase 116 U/L (38-126); Anion Gap 6 mmol/L; Blood Urea Nitrogen 19 mg/dL (7-17); Calcium 8.1 mg/dL (8.4-10.2); Carbon Dioxide 27 mmol/L (22-30); Chloride 106 mmol/L (98-107); Glucose 134 mg/dL (74-99); Magnesium 2.3 mg/dL (1.6-2.3); Non-African American GFR(CKD) >90 (>60 ml/min/1.73 sqM); Phosphorus 2.6 mg/dL (2.5-4.5); Sodium 139 mmol/L (137-145); Total Bilirubin 0.6 mg/dL (0.2-1.3); Total Protein 6.1 g/dL (6.3-8.2)
[2019-12-17 06:11] LABS: ABG Base Excess 4.6 mmol/L; ABG HCO3 29 mmol/L (21-25); ABG Oxygen Saturation 98.2 % (94-97); ABG PCO2 42 mmHg (35-45); ABG PH 7.45 (7.35-7.45); ABG PO2 108 mmHg (83-108); ABG TCO2 30 mmol/L (19-24); Allen Test Performed? Yes
[2019-12-17] MEDS: SODIUM CHLORIDE 0.9% 1,000 ML IV SCH ×2 (06:37→21:47)
[2019-12-17] MEDS: CHLORHEXIDINE GLUCONATE 15 ML CUP MUCOUS MEM SCH ×2 (08:25→21:47)
[2019-12-17] MEDS: PANTOPRAZOLE 40 MG/10 ML VIAL IV SCH (08:25)
--- NOTE | 2019-12-17 08:39 | XR ---
EXAMINATION TYPE: XR chest 1V portable DATE OF EXAM: 12/17/2019 COMPARISON: 12/16/2019 HISTORY: Respiratory difficulty TECHNIQUE: Single frontal view of the chest is obtained. FINDINGS: Bilateral consolidation and pleural effusion. Central interstitial pattern. No pneumothora x. Heart is enlarged. Atherosclerotic change aorta. ET tube approximately 4 cm above sena. IMPRESSION: 1. ET tube 4 cm above sena. 2. Bilateral infiltrate and pleural effusion correlate for CHF versus pneumonia.
[2019-12-17] MEDS: IPRATROPIUM-ALBUTEROL 3 ML NEB INHALATION SCH ×4 (08:41→19:33)
[2019-12-17] MEDS: PROPOFOL 1,000 MG in EMPTY BAG 1 BAG IV SCH ×3 (09:00→21:46)
[2019-12-17] MEDS ORDERED: FUROSEMIDE 10 MG/ML 2 ML VIAL IV ONE (09:00)
[2019-12-17 09:10] LABS: Anisocytosis Slight; Basophils # (A) 0.1 k/uL (0-0.2); Basophils % (A) 1 %; Eosinophils # (A) 0.1 k/uL (0-0.7); Eosinophils % (A) 1 %; HCT 32.8 % (34.0-46.0); HGB 10.4 gm/dL (11.4-16.0); Hypochromasia Marked; Lymphocytes % (A) 21 %; MCH 26.8 pg (25.0-35.0); MCHC 31.7 g/dL (31.0-37.0); MCV 84.6 fL (80.0-100.0); Mean Platelet Volume 10.4; Monocytes # (A) 0.4 k/uL (0-1.0); Monocytes % (A) 5 %; Neutrophils # (A) 6.5 k/uL (1.3-7.7); Neutrophils % (A) 69 %; Platelet Count 283 k/uL (150-450); RBC 3.88 m/uL (3.80-5.40); WBC 9.4 k/uL (3.8-10.6)
[2019-12-17 09:17] LABS: INR 1.1 (<1.2); Prothrombin Time 11.5 sec (9.0-12.0)
[2019-12-17 12:09] LABS: Glucose,Whole Blood 153 mg/dL (75-99)
[2019-12-17] MEDS ORDERED: LIDOCAINE 1% INJ 10MG/ML (20 ML MDV) ONE (12:37)
[2019-12-17] MEDS ORDERED: LIDOCAINE 1% INJ 10MG/ML (20 ML MDV) SQ ONE (13:12)
--- NOTE | 2019-12-17 13:40 | IR ---
PICC LINE PLACEMENT: HISTORY: Infection requiring long-term antibiotic therapy PROCEDURE: Ultrasound guidance of PICC line placement. WALL CRANE OPERATOR: Dr. Bullard. COMPLICATIONS: None ANESTHESIA: 1. 1% Lidocaine locally. FINDINGS/TECHNIQUE: The procedure was explained to the patient. The risks, complications, benefits and alternatives were discussed and any questions were answered. Informed consent was obtained. The patient was placed supine on the fluoroscopic table and prepped and draped in the usual sterile fas ion. Utilizing a 21 gauge needle and sonographic guidance, access in the right basilic vein was ach ieved and there is placement of a 0.018 guidewire. The vein is patent. A 5-F. sheath was placed ove r the guidewire. The guidewire and dilator were removed and a 5-F. Double lumen PICC line was placed through the sheath with the chest x-ray confirming the tip at the level of the SVC. The sheath was removed, the catheter was flushed and sutured into position. The patient was stable throughout the p rocedure and remained stable upon discharge from the Department of Radiology. The vein puncture was patent under ultrasound. A parra scale image was obtained to document patency of the vein punctured. All elements of the maximal barrier technique were utilized. IMPRESSION: 1. Successful PICC line placement under ultrasound performed bedside within the ICU.
--- NOTE | 2019-12-17 13:43 | XR ---
EXAMINATION TYPE: XR chest 1V confirm line [facility] DATE OF EXAM: 12/17/2019 COMPARISON: 12/17/2019 HISTORY: PICC line placed TECHNIQUE: Single frontal view of the chest is obtained. FINDINGS: Bilateral lower lobe infiltrate and effusion. ET tube stable. Heart size stable. PICC line within the right jugular vein. No pneumothorax or overt failure. IMPRESSION: 1. Basilar infiltrate and small effusion stable. 2. Right-sided PICC line appears to extend into the right jugular vein
--- NOTE | 2019-12-17 13:44 | XR ---
EXAMINATION TYPE: XR chest 1V confirm line [facility] DATE OF EXAM: 12/17/2019 COMPARISON: 12/17/2019 HISTORY: PICC line placement TECHNIQUE: Single frontal view of the chest is obtained. FINDINGS: Bilateral consolidation small effusion. Heart size stable. ET tube stable. No pneumothorax . No overt failure. Right-sided PICC line appears in good position. IMPRESSION: 1. Right-sided PICC line appears in good position. 2. Bilateral infiltrate and small effusion.
[2019-12-17] MEDS: 1: AMINO ACID 4.25%-D10W+LYTES*E* 1,000 ML 2: MVI, ADULT NO.4 WITH VIT K 10 ML, TRACE ( IV SCH ×3 (14:31)
--- NOTE | 2019-12-17 15:17 | PN ---
PROGRESS NOTE DATE OF SERVICE: 12/17/2019 SUBJECTIVE: The patient is resting comfortably in her ICU bed. She is currently intubated. She is arousable. She seems to answer questions appropriately by nodding. She acknowledges that she feels better and has decreased pain. OBJECTIVE: The patient appears in no apparent distress. Her vital signs are stable. She is afebrile. She is currently intubated. Her white count has decreased to 9.5. Head and neck examination reveals the patient to be intubated with a dressing in the right submandibular region. The original dressing was removed because it was saturated. The drain is in place and it is still draining a serosanguineous fluid. Intraorally, the exam is limited secondary to the patient being intubated. There is a decrease in swelling. The drains can be palpated in the ramus region before the mouth is softer. There is a serosanguineous drainage mixed in with the saliva as it drools out of her mouth. ASSESSMENT: The patient appears to be have improved post extraction of tooth #31 and I and D of multiple spaces. PLAN: The patient is to be extubated per the ICU doctor when they deem it to be safe. ID also recommends the patient to be intubated for at least another few days. The patient is to continue IV Unasyn until cultures are results are available. Heat to the face and the head of the bed is to be elevated. MMODL / IJN: [id number] /
--- NOTE | 2019-12-17 17:09 | P.PN ---
Subjective Progress Note Date: 12/17/19 (Critical care time 35 minutes) Principal diagnosis: arge mandibular abscesses on the right side Severe sepsis related to that Acute hypoxic respiratory failure multifactorial processes including sepsis due to mandibular abscess and Baseline COPD Severe hypokalemia Metabolic and respiratory alkalosis due to hyperventilation and hypokalemia Morbid obesity Anticoagulated On Coumadin 12/17/2019, patient seen eval examined during the rounds labs reviewed medications reviewed care plan discussed with the staff at length will continue the vent setting continue titrated oxygen down, once FiO2 is down to 40% with diffuse the PEEP to 5 plan is to keep on ventilator for another at least 48-72 hours patient is due for follow-up computed tomography scan of the neck and right submandibular area, remains on broad-spectrum antibiotics status post PICC line TPN has been started, patient is stable at 50 mics of propofol awake and comfortable in no distress is present she remains bradycardic but with stable hemodynamics, patient is status post postoperative day #2 of exploration and incision and drainage of abscess on the neck and jaw region on the right side for details please refer to operative note, output through the drains has been reviewed 12/16/2019, patient seen eval examined during the rounds labs reviewed medications reviewed care plan discussed with the staff at length, a shunt is postop day #1 of the abscess tooth extraction, right submandibular abscess with abscesses involving pharyngeal buccaland concrete paving supervisor space along with tonsillarpatient underwent extraction of tooth followed by incision and drainage of the soft tissue area around the submandible right pharyngealand right concrete paving supervisor space, for details look at the operative report, patient has extensive swelling, had hard time in being intubated, O G-tube has not been inserted, patient has a #6-[place] endotracheal tube, she is awake and comfortable on propofol drip hemodynamic status stable bradycardic in rate of 14 is for the stable blood pressure and not on vasopressors remains on IV Unasyn, culture results and reports are pending, patient is high risk for rapid weaning and extubation will keep it intubated for another 72-96 hours, we'll start feeding through the PICC line which will be obtained INR has been consulted dietitian has been consulted, FiO2 have been decreased down to 60% BP remains 8, once FiO2 is 30-40% and will decrease the PEEP to 5 continue other vent setting patient does have slight respiratory alkalosis, with hypokalemia which is replaced protocol, white cell count is decreased to 12.4, This is a 54-year-old female with extensive history of smoking and nicotine abuse has a baseline COPD, patient also has a history of type 2 diabetes mellitus with history of hypertension and hypertensive cardiovascular disease has been on Coumadin as well with history of chronic persistent asthma hypothyroidism came into the hospital about 2-3 day history of increased swelling on the right face and mandibular area patient noted to be short of breath and hypoxia I was asked to evaluate the patient further and arterial blood gas was performed revealed metabolic and respiratory alkalosis along with hypoxia patient has been recommended to be placed on airflow patient's computed tomography scan is positive for large mandibular abscess patient is now being transferred to the ICU oral surgery on consult patient likely will undergo surgery later on today care plan discussed with infectious disease as well Objective - Vital Signs Vital signs: Vital Signs Temp 98.6 F 12/17/19 12:00 Pulse 42 L 12/17/19 16:08 Resp 20 12/17/19 15:00 BP 133/69 12/17/19 15:00 Pulse Ox 97 12/17/19 15:00 Intake & Output 12/16/19 12/17/19 12/17/19 18:59 06:59 18:59 Intake Total 9904.925 3403.080 1605.920 Output Total 1130 477 335 Balance 945.846 6583.080 1270.920 Weight 85.4 kg 87.4 kg 87.4 kg Intake: IV 1050 2360 1423 Ampicillin-Sulbactam 3 gm 500 100 In Sodium Chloride 0.9% 100 ml @ 200 mls/hr IVPB Q6HR [facility] Rx#:[id number] Mvi, Adult No.4 with Vit 450 648 K 10 ml Trace (Conc-1Ml/ Dose) 1 ml In Amino Acid 4.25%-D10w+Lytes*E* 1,000 ml @ 50 mls/hr IV . [id number] [facility] Rx#:[id number] Potassium Chloride 10 meq 700 In Water For Injection 1 100ml.bag @ 100 mls/hr IVPB Q1HR [facility] Rx#: [id number] Sodium Chloride 0.9% 1, 1050 710 675 000 ml @ 75 mls/hr IV . [id number] [facility] Rx#:[id number] Intake, IV Titration 569.344 17.080 182.920 Amount Potassium Chloride 10 meq 400 In Water For Injection 1 100ml.bag @ 100 mls/hr IVPB Q1HR [facility] Rx#: [id number] Propofol 1,000 mg In 169.344 17.080 182.920 Empty Bag 1 bag @ Titrate IV .Q0M [facility] Rx#: [id number] Output: Urine 1130 477 335 Other: Voiding Method Indwelling Catheter Indwelling Catheter Indwelling Catheter - Exam - Constitutional Constitutional Comment(s): Intubated on propofol RASS -1 - Constitutional General appearance: average body habitus, disheveled, mild distress - EENT Limited oral visibility is present due to swelling of the face and abscess in right mandibular region Eyes: PERRLA ENT: pharyngeal erythema, tonsillar swelling Ears: bilateral: normal - Respiratory Respiratory: bilateral: diminished, negative: dullness, rales, rhonchi, wheezing, prolonged expiration, prolonged inspiration - Cardiovascular Rhythm: regular Heart sounds: normal: S1, S2 - Gastrointestinal General gastrointestinal: normal bowel sounds - Integumentary Integumentary: normal turgor - Neurologic Neurologic: CNII-XII intact - Musculoskeletal Musculoskeletal: gait normal, generalized weakness, strength equal bilaterally - Psychiatric Psychiatric: Awake and alert calm and comfortable - Labs CBC & Chem 7: 12/17/19 08:41 12/17/19 08:37 Labs: Abnormal Lab Results - Last 24 Hours (Table) 12/16/19 12/16/19 12/16/19 Range/Units 16:17 18:08 23:31 Hgb (11.4-16.0) gm/dL Hct (34.0-46.0) % MCHC (31.0-37.0) g/dL RDW (11.5-15.5) % ABG HCO3 (21-25) mmol/L ABG Total CO2 (19-24) mmol/L ABG O2 Saturation (94-97) % Potassium 3.2 L (3.5-5.1) mmol/L BUN (7-17) mg/dL Glucose (74-99) mg/dL POC Glucose (mg/dL) 119 H (75-99) mg/dL Calcium (8.4-10.2) mg/dL AST (14-36) U/L ALT (4-34) U/L Total Protein (6.3-8.2) g/dL Albumin 3.3 L (3.5-5.0) g/dL Triglycerides 195 H (<150) mg/dL 12/16/19 12/17/19 12/17/19 Range/Units 23:35 05:03 05:15 Hgb 10.5 L (11.4-16.0) gm/dL Hct (34.0-46.0) % MCHC 30.6 L (31.0-37.0) g/dL RDW 16.4 H (11.5-15.5) % ABG HCO3 (21-25) mmol/L ABG Total CO2 (19-24) mmol/L ABG O2 Saturation (94-97) % Potassium (3.5-5.1) mmol/L BUN 19 H (7-17) mg/dL Glucose 134 H (74-99) mg/dL POC Glucose (mg/dL) 147 H (75-99) mg/dL Calcium 8.1 L (8.4-10.2) mg/dL AST 38 H (14-36) U/L ALT 57 H (4-34) U/L Total Protein 6.1 L (6.3-8.2) g/dL Albumin 3.1 L (3.5-5.0) g/dL Triglycerides (<150) mg/dL 12/17/19 12/17/19 12/17/19 Range/Units 05:31 06:08 08:41 Hgb 10.4 L (11.4-16.0) gm/dL Hct 32.8 L (34.0-46.0) % MCHC (31.0-37.0) g/dL RDW 16.0 H (11.5-15.5) % ABG HCO3 29 H (21-25) mmol/L ABG Total CO2 30 H (19-24) mmol/L ABG O2 Saturation 98.2 H (94-97) % Potassium (3.5-5.1) mmol/L BUN (7-17) mg/dL Glucose (74-99) mg/dL POC Glucose (mg/dL) 146 H (75-99) mg/dL Calcium (8.4-10.2) mg/dL AST (14-36) U/L ALT (4-34) U/L Total Protein (6.3-8.2) g/dL Albumin (3.5-5.0) g/dL Triglycerides (<150) mg/dL 12/17/19 Range/Units 11:57 Hgb (11.4-16.0) gm/dL Hct (34.0-46.0) % MCHC (31.0-37.0) g/dL RDW (11.5-15.5) % ABG HCO3 (21-25) mmol/L ABG Total CO2 (19-24) mmol/L ABG O2 Saturation (94-97) % Potassium (3.5-5.1) mmol/L BUN (7-17) mg/dL Glucose (74-99) mg/dL POC Glucose (mg/dL) 153 H (75-99) mg/dL Calcium (8.4-10.2) mg/dL AST (14-36) U/L ALT (4-34) U/L Total Protein (6.3-8.2) g/dL Albumin (3.5-5.0) g/dL Triglycerides (<150) mg/dL Microbiology - Last 24 Hours (Table) 12/15/19 21:00 Gram Stain - Final Thigh - Right Wound Culture - Final 12/15/19 11:36 Blood Culture - Preliminary Blood No Growth after 48 hours 12/15/19 11:46 Blood Culture - Preliminary Blood No Growth after 48 hours Assessment and Plan Assessment: Large mandibular abscesses on the right side due to infected tooth with abscess Compromised upper airway Severe sepsis related to that Acute hypoxic respiratory failure multifactorial processes including sepsis due to mandibular abscess and Baseline COPD Severe hypokalemia Metabolic and respiratory alkalosis due to hyperventilation and hypokalemia Morbid obesity Plan: Follow-up on culture report Breathing treatments Broad-spectrum Antibiotics with anaerobic coverage ID and oral surgery consult following the patient Replace potassium as per protocol PICC line TPN DVT prophylaxis Peptic ulcer disease prophylaxis Keep ventilator and slow weaning as tolerated, once oxygen is down to 40% we'll decrease the PEEP Gentle rehydration Further recommendations pending plan of care as per clinical response of the patient Time with Patient: Greater than 30
--- NOTE | 2019-12-17 18:18 | PN ---
PROGRESS NOTE DATE OF SERVICE: 12/17/2019 REASON FOR FOLLOWUP: Right lower jaw abscess. INTERVAL HISTORY: The patient is currently afebrile. The patient remains intubated on the vent. She is hemodynamically stable, not requiring any pressor support. FiO2 is down to 60%, not requiring any pressor support. No diarrhea has been reported. The patient is awake and tries to communicate; however, cannot because of the tube. PHYSICAL EXAMINATION: Blood pressure 133/69 with a pulse of 41, temperature 98.6. She is 97% on 60% FiO2. General description is a middle-aged female intubated on the vent. HEENT EXAMINATION: Right lower jaw with no significant redness. Minimal drainage. LUNGS: Unlabored breathing. Clear to auscultation. HEART: S1, S2. Regular rate and rhythm. ABDOMEN: Soft. No tenderness. LABS: Hemoglobin is 10.4, white count 9.4, BUN of 19, creatinine 0.64. DIAGNOSTIC IMPRESSION AND PLAN: Patient with right lower jaw extensive abscess, status post surgery. Cultures are currently pending. Patient is covered with Unasyn; continue and monitor clinical course closely. MMODL / IJN: [id number] /
--- NOTE | 2019-12-17 18:45 | CT ---
EXAMINATION TYPE: CT soft tissue neck wo con DATE OF EXAM: 12/17/2019 COMPARISON: 12/15/2019 HISTORY: NECK ABCESS CT DLP: 224 mGycm Automated exposure control for dose reduction was used. Multiple axial sections were obtained from the level of the aortic arch to the orbits without contras t. There is endotracheal tube noted. Superior mediastinum is intact. There is subcutaneous edema at the anterior neck on the right side. There is slight asymmetric increa sed size of right submandibular salivary gland compared to the left. There is apparent drainage karma ter in the right submandibular region at the angle of the mandible. There is asymmetric increased siz e of the right parotid gland compared to the left. There are multiple right parotid air bubbles. Ther e is fluid and mucosal thickening in the posterior nasopharynx. There is complete occlusion of the po sterior nasopharyngeal airway. There is mucosal thickening right maxillary sinus. There is ethmoid an d sphenoid sinus mucosal thickening. There is extensive soft tissue swelling involving the angle of t he mandible on the right side. I see no bony destructive process. IMPRESSION: Large inflammatory right side submandibular mass which is poorly marginated. There is some swelling o f the right submandibular salivary gland and right parotid gland. There is soft tissue air bubbles co nsistent with multiple abscesses and phlegmon. Drainage catheter is anterior to the right parotid gla nd and air bubbles. It is not clear if the drainage catheter is draining the extent of the abscesses. There is increased soft tissue swelling in the posterior nasopharynx with fluid compared to old exam. There is overall increased soft tissue swelling involving the large submandibular inflammatory mass compared to recent exam. There is increased sinusitis compared to old exam.
[2019-12-17 19:16] LABS: Glucose,Whole Blood 132 mg/dL (75-99)
[2019-12-17] MEDS: IPRATROPIUM-ALBUTEROL 3 ML NEB INHALATION PRN (23:21)
[2019-12-17 23:48] LABS: Glucose,Whole Blood 161 mg/dL (75-99)
[2019-12-18] MEDS: PROPOFOL 1,000 MG in EMPTY BAG 1 BAG IV SCH ×6 (00:26→22:57)
[2019-12-18] MEDS: AMPICILLIN-SULBACTAM 3 GM in SODIUM CHLORIDE 0.9% 100 ML IVPB SCH ×4 (00:27→17:46)
[2019-12-18] MEDS: HEPARIN SODIUM,PORCINE 5,000 UNIT/ML 1 ML VIAL SQ SCH ×3 (00:27→16:09)
[2019-12-18] MEDS: INSULIN ASPART (NovoLOG) 100 UNIT/ML VIAL SQ SCH ×4 (00:27→18:00)
[2019-12-18] MEDS: MVI IV SCH ×8 (00:41→13:03)
[2019-12-18] MEDS: [UNRECOGNIZED DRUG - OTHER] IV SCH ×8 (00:41→13:03)
[2019-12-18] MEDS: 1: AMINO ACID 4.25%-D10W+LYTES*E* 1,000 ML 2: MVI, ADULT NO.4 WITH VIT K 10 ML, TRACE ( IV SCH ×3 (00:41)
[2019-12-18] MEDS: POTASSIUM CHLORIDE IV SCH ×8 (00:41→13:03)
[2019-12-18] MEDS: AMINO ACID 4.25% IV SCH ×8 (00:41→13:03)
[2019-12-18] MEDS: HYDROmorphone 1 MG/ML 1 ML SYRINGE IVP PRN ×4 (02:26→18:42)
[2019-12-18] MEDS: IPRATROPIUM-ALBUTEROL 3 ML NEB INHALATION PRN ×2 (03:28→23:27)
[2019-12-18 05:06] LABS: ABG Base Excess 3.4 mmol/L; ABG HCO3 28 mmol/L (21-25); ABG Oxygen Saturation 95.6 % (94-97); ABG PCO2 40 mmHg (35-45); ABG PH 7.45 (7.35-7.45); ABG PO2 77 mmHg (83-108); ABG TCO2 29 mmol/L (19-24); Allen Test Performed? Yes
[2019-12-18 05:43] LABS: Anisocytosis Slight; Basophils # (A) 0.1 k/uL (0-0.2); Basophils % (A) 1 %; Eosinophils # (A) 0.1 k/uL (0-0.7); Eosinophils % (A) 1 %; HCT 32.2 % (34.0-46.0); HGB 9.8 gm/dL (11.4-16.0); Hypochromasia Marked; Lymphocytes # (A) 2.4 k/uL (1.0-4.8); Lymphocytes % (A) 30 %; MCH 25.6 pg (25.0-35.0); MCHC 30.4 g/dL (31.0-37.0); MCV 84.2 fL (80.0-100.0); Mean Platelet Volume 8.7; Monocytes # (A) 0.2 k/uL (0-1.0); Monocytes % (A) 3 %; Neutrophils # (A) 4.9 k/uL (1.3-7.7); Neutrophils % (A) 63 %; Platelet Count 294 k/uL (150-450); RBC 3.82 m/uL (3.80-5.40); RDW 16.1 % (11.5-15.5); WBC 7.8 k/uL (3.8-10.6)
[2019-12-18 05:58] LABS: Glucose,Whole Blood 158 mg/dL (75-99)
[2019-12-18 06:23] LABS: African American GFR (CKD) >90 (>60 ml/min/1.73 sqM); Anion Gap 2 mmol/L; Blood Urea Nitrogen 20 mg/dL (7-17); Carbon Dioxide 29 mmol/L (22-30); Chloride 108 mmol/L (98-107); Glucose 125 mg/dL (74-99); Magnesium 2.1 mg/dL (1.6-2.3); Non-African American GFR(CKD) >90 (>60 ml/min/1.73 sqM); Phosphorus 4.2 mg/dL (2.5-4.5); Potassium 3.6 mmol/L (3.5-5.1); Sodium 139 mmol/L (137-145)
--- NOTE | 2019-12-18 06:28 | XR ---
EXAMINATION TYPE: XR chest 1V portable DATE OF EXAM: 12/18/2019 HISTORY: Tube placement. REFERENCE: Previous study dated 12/17/2019. FINDINGS: There is a right basilic PICC line in place. Its tip is in the superior vena cava. There is some left basilar atelectasis. I suspect small effusions. Heart size upper limits of normal. IMPRESSION: 1. LEFT BASILAR AIRSPACE DISEASE EITHER REPRESENTING ATELECTASIS OR PNEUMONIA. THIS MAY HAVE WORSENED SLIGHTLY. 2. SMALL, BILATERAL EFFUSIONS.
[2019-12-18] MEDS ORDERED: Potassium Replacement Protocol 1 EACH MISC MISCELLANE PRN (06:45)
[2019-12-18] MEDS: POTASSIUM CHLORIDE 10 MEQ in WATER FOR INJECTION 1 100ML.BAG IVPB SCH ×4 (07:00→18:19)
--- NOTE | 2019-12-18 07:08 | PN ---
PROGRESS NOTE SUBJECTIVE: A 54-year-old white female who remains on the ventilator still with acute right mandibular abscess status post incision, drainage, broad-spectrum antibiotics. COPD exacerbation. She is alert on the vent. Hopefully, we can wean her off the vent today. Labs reviewed. ICU notes reviewed. Lungs are clear. CARDIOVASCULAR: S1, S2. ASSESSMENT: 1. Acute mandibular abscess. 2. Chronic obstructive pulmonary disease exacerbation. 3. Acute hypoxemic respiratory distress. Continue broad-spectrum antibiotics. Wean on the ventilator. Continue with IV steroids. Continue current treatment. Follow up in the next 24 to 48 hours. ICU time 20 to 30 minutes. MMODL / IJN: [id number] /
[2019-12-18] MEDS: IPRATROPIUM-ALBUTEROL 3 ML NEB INHALATION SCH ×4 (07:56→19:25)
[2019-12-18] MEDS: CHLORHEXIDINE GLUCONATE 15 ML CUP MUCOUS MEM SCH ×2 (08:49→22:57)
[2019-12-18] MEDS: PANTOPRAZOLE 40 MG/10 ML VIAL IV SCH (08:50)
[2019-12-18] MEDS: FUROSEMIDE 10 MG/ML 2 ML VIAL IV SCH (08:50)
--- NOTE | 2019-12-18 11:21 | PN ---
PROGRESS NOTE DATE OF SERVICE: 12/18/2019 SUBJECTIVE: The patient is currently intubated, but is somewhat alert. She responded yes when asked if her pain and pressure have decreased. He also responded yes when asked if she thinks she is improving. OBJECTIVE: Her vital signs are stable. She is afebrile. She is resting comfortably in bed. Her white count is 7.8. Her head and neck exam reveals the patient to be intubated. The right submandibular dressing is in place and was recently changed and it exhibits a bloody purulent discharge from the drain in the submandibular region. The drain is intact and continuing to drain. Intraoral examination reveals purulent discharge from the intraoral drains. Upon palpation, there is decreased soft tissue swelling. The exam is limited in the pharyngeal area secondary to the tube. The floor of the mouth feels soft. The right pharyngeal and tonsillar region does exhibit swelling. The drain is in place in that area. ASSESSMENT: The patient is slowly improving. PLAN: Continue the IV antibiotics, heat to face. The drains will remain in place until they stop draining. MMODL / IJN: [id number] /
[2019-12-18 12:10] LABS: Glucose,Whole Blood 150 mg/dL (75-99)
--- NOTE | 2019-12-18 12:27 | PN ---
PROGRESS NOTE A 54-year-old white female. She is responding yes. She shakes her head, tries to move her neck around when asked if her neck is swollen. She sounds like she is getting better. She knows she is improving. White count 7.8. She remains intubated. Her eyes are open. She shaking her head to any questions. She does have soft tissue swelling acutely on her right neck, her right jaw, her right floor of the mouth. She has a drain in the right pharyngeal tonsillar region which has some swelling around it. She is slowly improving with multiple abscesses in the right mandible, right cheek, status post tooth extraction. Continues on IV antibiotics. Heat to face, continue with drains until it stops draining. Possible extubation 2-3 days if she improves from the severe facial cellulitis, which is compromising her respiratory ability to breathe. She also has a nicotine addiction, COPD exacerbation, peripheral artery disease, bipolar disorder. Continue with current treatment. ICU time 30 minutes. MMODL / IJN: [id number] /
[2019-12-18] MEDS: SODIUM CHLORIDE 0.9% 1,000 ML IV SCH (13:03)
[2019-12-18 18:08] LABS: Glucose,Whole Blood 138 mg/dL (75-99)
--- NOTE | 2019-12-18 23:02 | P.PN ---
Subjective Progress Note Date: 12/18/19 Principal diagnosis: arge mandibular abscesses on the right side Severe sepsis related to that Acute hypoxic respiratory failure multifactorial processes including sepsis due to mandibular abscess and Baseline COPD Severe hypokalemia Metabolic and respiratory alkalosis due to hyperventilation and hypokalemia Morbid obesity Anticoagulated On Coumadin 12/18/2019, patient seen and evaluated examined during the rounds labs reviewed medications reviewed care plan discussed with the staff at length, patient remains on the PEEP of 8 and FiO2 of 60% we'll recommend to lower down the PEEP as well as FiO2 in next 24 hours, the computed tomography scan of the neck has been reviewed in fact increased swelling has been noted, patient remains on propofol, comfortable she is bradycardic but with stable hemodynamics continue supportive care continue antibiotics, excessive secretions oral antral the G- tube has been noted, chest x-ray revealed left lower lobe pneumonia as well as effusion, patient remains on IV fluid along with TPN would recommend to DC the IV fluids continue Lasix 20 mg daily 12/17/2019, patient seen eval examined during the rounds labs reviewed medicati ons reviewed care plan discussed with the staff at length will continue the vent setting continue titrated oxygen down, once FiO2 is down to 40% with diffuse the PEEP to 5 plan is to keep on ventilator for another at least 48-72 hours patient is due for follow-up computed tomography scan of the neck and right submandibular area, remains on broad-spectrum antibiotics status post PICC line TPN has been started, patient is stable at 50 mics of propofol awake and comfortable in no distress is present she remains bradycardic but with stable hemodynamics, patient is status post postoperative day #2 of exploration and incision and drainage of abscess on the neck and jaw region on the right side for details please refer to operative note, output through the drains has been reviewed 12/16/2019, patient seen eval examined during the rounds labs reviewed medications reviewed care plan discussed with the staff at length, a shunt is postop day #1 of the abscess tooth extraction, right submandibular abscess with abscesses involving pharyngeal buccaland associate brand manager space along with tonsillarpatient underwent extraction of tooth followed by incision and drainage of the soft tissue area around the submandible right pharyngealand right associate brand manager space, for details look at the operative report, patient has extensive swelling, had hard time in being intubated, O G-tube has not been inserted, patient has a #6-[place] endotracheal tube, she is awake and comfortable on propofol drip hemodynamic status stable bradycardic in rate of 14 is for the stable blood pressure and not on vasopressors remains on IV Unasyn, culture results and reports are pending, patient is high risk for rapid weaning and extubation will keep it intubated for another 72-96 hours, we'll start feeding through the PICC line which will be obtained INR has been consulted dietitian has been consulted, FiO2 have been decreased down to 60% BP remains 8, once FiO2 is 30-40% and will decrease the PEEP to 5 continue other vent setting patient does have slight respiratory alkalosis, with hypokalemia which is replaced protocol, white cell count is decreased to 12.4, This is a 54-year-old female with extensive history of smoking and nicotine abuse has a baseline COPD, patient also has a history of type 2 diabetes mellitus with history of hypertension and hypertensive cardiovascular disease has been on Coumadin as well with history of chronic persistent asthma hypothyroidism came into the hospital about 2-3 day history of increased swelling on the right face and mandibular area patient noted to be short of breath and hypoxia I was asked to evaluate the patient further and arterial blood gas was performed revealed metabolic and respiratory alkalosis along with hypoxia patient has been recommended to be placed on airflow patient's computed tomography scan is positive for large mandibular abscess patient is now being transferred to the ICU oral surgery on consult patient likely will undergo surgery later on today care plan discussed with infectious disease as well Objective - Vital Signs Vital signs: Vital Signs Temp 100.0 F H 12/18/19 20:00 Pulse 42 L 12/18/19 22:00 Resp 16 12/18/19 22:00 BP 128/66 12/18/19 22:00 Pulse Ox 97 12/18/19 22:00 Intake & Output 12/18/19 12/18/19 12/19/19 06:59 18:59 06:59 Intake Total 2363.371 1839 400 Output Total 585 1175 245 Balance 1778.371 664 155 Weight 90 kg Intake: IV 0732 1249 300 Ampicillin-Sulbactam 3 gm 200 100 In Sodium Chloride 0.9% 100 ml @ 200 mls/hr IVPB Q6HR [facility] Rx#:[id number] Mvi, Adult No.4 with Vit 996 249 K 10 ml Trace (Conc-1Ml/ Dose) 1 ml In Amino Acid 4.25%-D10w+Lytes*E* 1,000 ml @ 50 mls/hr IV . [id number] [facility] Rx#:[id number] Sodium Chloride 0.9% 1, 900 900 300 000 ml @ 75 mls/hr IV . [id number] [facility] Rx#:[id number] Intake, IV Titration 267.371 590 100 Amount Potassium Chloride 10 meq 300 In Water For Injection 1 100ml.bag @ 100 mls/hr IVPB Q1H [facility] Rx#: [id number] Propofol 1,000 mg In 267.371 290 100 Empty Bag 1 bag @ Titrate IV .Q0M [facility] Rx#: [id number] Output: Urine 585 1175 245 Other: Voiding Method Indwelling Catheter Indwelling Catheter Indwelling Catheter - Exam - Constitutional Constitutional Comment(s): Intubated on propofol RASS -1 - Constitutional General appearance: average body habitus, disheveled, mild distress - EENT Limited oral visibility is present due to swelling of the face and abscess in right mandibular region Eyes: PERRLA ENT: pharyngeal erythema, tonsillar swelling Ears: bilateral: normal - Respiratory Respiratory: bilateral: diminished, negative: dullness, rales, rhonchi, wheezing, prolonged expiration, prolonged inspiration - Cardiovascular Rhythm: regular Heart sounds: normal: S1, S2 - Gastrointestinal General gastrointestinal: normal bowel sounds - Integumentary Integumentary: normal turgor - Neurologic Neurologic: CNII-XII intact - Musculoskeletal Musculoskeletal: gait normal, generalized weakness, strength equal bilaterally - Psychiatric Psychiatric: Awake and alert calm and comfortable - Labs CBC & Chem 7: 12/18/19 05:11 12/18/19 15:30 Labs: Abnormal Lab Results - Last 24 Hours (Table) 12/17/19 12/18/19 12/18/19 Range/Units 23:37 04:51 05:11 Hgb 9.8 L (11.4-16.0) gm/dL Hct 32.2 L (34.0-46.0) % MCHC 30.4 L (31.0-37.0) g/dL RDW 16.1 H (11.5-15.5) % ABG pO2 77 L (83-108) mmHg ABG HCO3 28 H (21-25) mmol/L ABG Total CO2 29 H (19-24) mmol/L Chloride (98-107) mmol/L BUN (7-17) mg/dL Glucose (74-99) mg/dL POC Glucose (mg/dL) 161 H (75-99) mg/dL Calcium (8.4-10.2) mg/dL 12/18/19 12/18/19 12/18/19 Range/Units 05:11 05:47 11:59 Hgb (11.4-16.0) gm/dL Hct (34.0-46.0) % MCHC (31.0-37.0) g/dL RDW (11.5-15.5) % ABG pO2 (83-108) mmHg ABG HCO3 (21-25) mmol/L ABG Total CO2 (19-24) mmol/L Chloride 108 H (98-107) mmol/L BUN 20 H (7-17) mg/dL Glucose 125 H (74-99) mg/dL POC Glucose (mg/dL) 158 H 150 H (75-99) mg/dL Calcium 8.0 L (8.4-10.2) mg/dL 12/18/19 Range/Units 17:56 Hgb (11.4-16.0) gm/dL Hct (34.0-46.0) % MCHC (31.0-37.0) g/dL RDW (11.5-15.5) % ABG pO2 (83-108) mmHg ABG HCO3 (21-25) mmol/L ABG Total CO2 (19-24) mmol/L Chloride (98-107) mmol/L BUN (7-17) mg/dL Glucose (74-99) mg/dL POC Glucose (mg/dL) 138 H (75-99) mg/dL Calcium (8.4-10.2) mg/dL Microbiology - Last 24 Hours (Table) 12/15/19 11:36 Blood Culture - Preliminary Blood No Growth after 72 hours 12/15/19 11:46 Blood Culture - Preliminary Blood No Growth after 72 hours 12/15/19 21:00 Anaerobic Culture - Preliminary Throat Assessment and Plan Assessment: Large mandibular abscesses on the right side due to infected tooth with abscess Compromised upper airway Severe sepsis related to that Acute hypoxic respiratory failure multifactorial processes including sepsis due to mandibular abscess and Baseline COPD Severe hypokalemia Metabolic and respiratory alkalosis due to hyperventilation and hypokalemia Morbid obesity Plan: Follow-up on culture report Breathing treatments Broad-spectrum Antibiotics with anaerobic coverage ID and oral surgery consult following the patient Replace potassium as per protocol PICC line TPN DVT prophylaxis Peptic ulcer disease prophylaxis Keep ventilator and slow weaning as tolerated, once oxygen is down to 40% we'll decrease the PEEP 5 Gentle rehydration, IV fluids to Hep-Lock while patient is getting TPN Further recommendations pending plan of care as per clinical response of the patient Time with Patient: Greater than 30
[2019-12-19 00:18] LABS: Glucose,Whole Blood 145 mg/dL (75-99)
[2019-12-19] MEDS: INSULIN ASPART (NovoLOG) 100 UNIT/ML VIAL SQ SCH ×4 (00:23→18:01)
[2019-12-19] MEDS: HEPARIN SODIUM,PORCINE 5,000 UNIT/ML 1 ML VIAL SQ SCH ×3 (00:23→15:54)
[2019-12-19] MEDS: AMPICILLIN-SULBACTAM 3 GM in SODIUM CHLORIDE 0.9% 100 ML IVPB SCH ×3 (00:24→12:08)
[2019-12-19] MEDS: POTASSIUM CHLORIDE IV SCH ×4 (01:25)
[2019-12-19] MEDS: [UNRECOGNIZED DRUG - OTHER] IV SCH ×4 (01:25)
[2019-12-19] MEDS: PROPOFOL 1,000 MG in EMPTY BAG 1 BAG IV SCH ×6 (01:25→22:27)
[2019-12-19] MEDS: MVI IV SCH ×4 (01:25)
[2019-12-19] MEDS: AMINO ACID 4.25% IV SCH ×4 (01:25)
[2019-12-19] MEDS: HYDROmorphone 1 MG/ML 1 ML SYRINGE IVP PRN ×4 (02:35→18:03)
[2019-12-19] MEDS: SODIUM CHLORIDE 0.9% 1,000 ML IV SCH ×2 (02:58→16:38)
[2019-12-19 04:23] LABS: Anisocytosis Slight; HCT 31.2 % (34.0-46.0); HGB 9.4 gm/dL (11.4-16.0); Hypochromasia Marked; MCH 25.6 pg (25.0-35.0); MCHC 30.3 g/dL (31.0-37.0); MCV 84.6 fL (80.0-100.0); Mean Platelet Volume 9.8; Platelet Count 311 k/uL (150-450); RBC 3.69 m/uL (3.80-5.40); RDW 16.1 % (11.5-15.5); WBC 8.5 k/uL (3.8-10.6)
[2019-12-19 04:45] LABS: African American GFR (CKD) >90 (>60 ml/min/1.73 sqM); Anion Gap 3 mmol/L; Blood Urea Nitrogen 20 mg/dL (7-17); Calcium 8.1 mg/dL (8.4-10.2); Carbon Dioxide 27 mmol/L (22-30); Chloride 110 mmol/L (98-107); Glucose 123 mg/dL (74-99); Magnesium 2.1 mg/dL (1.6-2.3); Non-African American GFR(CKD) >90 (>60 ml/min/1.73 sqM); Phosphorus 4.6 mg/dL (2.5-4.5); Potassium 4.2 mmol/L (3.5-5.1); Sodium 140 mmol/L (137-145)
[2019-12-19 05:55] LABS: ABG Base Excess 1.8 mmol/L; ABG HCO3 26 mmol/L (21-25); ABG Oxygen Saturation 92.8 % (94-97); ABG PCO2 37 mmHg (35-45); ABG PO2 65 mmHg (83-108); ABG TCO2 27 mmol/L (19-24); Allen Test Performed? Yes
[2019-12-19 05:56] LABS: ABG PH 7.45 (7.35-7.45)
--- NOTE | 2019-12-19 06:12 | XR ---
EXAMINATION TYPE: XR chest 1V portable DATE OF EXAM: 12/19/2019 HISTORY: Tube placement. REFERENCE: Previous study dated 12/18/2019 the patient is ET tube and right basilic PICC line remain i n place, unchanged in appearance. There is bibasilar airspace disease. This is worsened slightly. There are small, bilateral effusions. Heart size upper limits of normal.. FINDINGS: 1. Slight worsening in the degree of bibasilar airspace disease. 2. Small, bilateral effusions. IMPRESSION:
[2019-12-19 06:15] LABS: Glucose,Whole Blood 148 mg/dL (75-99)
[2019-12-19] MEDS: IPRATROPIUM-ALBUTEROL 3 ML NEB INHALATION SCH ×4 (07:52→20:28)
[2019-12-19] MEDS: CHLORHEXIDINE GLUCONATE 15 ML CUP MUCOUS MEM SCH ×2 (08:41→21:57)
[2019-12-19] MEDS: PANTOPRAZOLE 40 MG/10 ML VIAL IV SCH (08:41)
[2019-12-19] MEDS: FUROSEMIDE 10 MG/ML 2 ML VIAL IV SCH (08:41)
--- NOTE | 2019-12-19 11:14 | PN ---
PROGRESS NOTE DATE OF SERVICE: 12/19/2019. This is postoperative day #4. SUBJECTIVE: The patient is intubated and cannot respond verbally. However, she does understand commands. When asked if she is having any pain and if she is better, she nods yes to being better and no to pain. OBJECTIVE: Her vital signs are stable. She is afebrile. Her white count is down. Her labs are within normal limits. Her head and neck examination reveals the patient to be intubated, somewhat alert. She is being sedated. There is right facial swelling in the parotid area and the mandibular angle region which is mildly firm. The submandibular drain is in place and it is draining. Intraorally, one of the drains has come out per the nurse, and this has been verified intraorally. There is purulent drainage coming from the remaining drains. There is a decrease in swelling in the right buccal region and the right parapharyngeal area. The swelling is still present, however. The floor of mouth is soft. ASSESSMENT: Post extraction of tooth #31 with I and D of multiple spaces. The patient is improving slowly. The patient is currently on IV Unasyn. PLAN: I have added IV Flagyl until the patient is seen by infectious disease. The CT scan that was taken postoperatively shows significant swelling with a decreased airway space. There is some swelling and possible drainage collection sites in the periparotid region. I recommended an ENT consult for assistance in further drainage potentially of the parotid region and necessary parapharyngeal spaces. In addition, if the patient does not improve in the next few days, a tracheostomy should be considered. MMODL / IJN: [id number] /
[2019-12-19] MEDS: metroNIDAZOLE-NS PMX 500 MG in SALINE 1 100ML.BAG IVPB SCH ×2 (11:32→17:29)
[2019-12-19 11:53] LABS: Glucose,Whole Blood 141 mg/dL (75-99)
[2019-12-19] MEDS: 1: MVI, ADULT NO.4 WITH VIT K 10 ML, TRACE (CONC-1ML/DOSE) 1 ML, PARENTERAL ELECTROLYTES IV SCH ×5 (14:03)
[2019-12-19] MEDS: DEXAMETHASONE SOD PHOSPHATE 10 MG/ML 1 ML VIAL IV SCH (15:58)
[2019-12-19] MEDS ORDERED: INSULIN ASPART (NovoLOG) 100 UNIT/ML VIAL SQ SCH (16:00)
--- NOTE | 2019-12-19 17:13 | PN ---
PROGRESS NOTE CHIEF COMPLAINT: Hcvrx-upex-xanv-old white female remains in ICU on the ventilator. She wants off the vent. ENT has seen her and switched over to clindamycin and Flagyl IV, which she has taken at this time. We will add some IV steroids. Possibly come off the vent in the next 24-48 hours. Hemoglobin is 9.4, white count 8.5. ABG, pH 7.45, pCO2 37, PO2 65, bicarb 26, CO2 27, O2 saturation 92. Sodium 140, potassium 4.2, BUN is 20, creatinine 0.58. Sugars in the mid 100s. PHYSICAL EXAMINATION: Cardiovascular S1, S2. Lungs are clear. GI soft. Hematology negative Homans. Psych: Fair mood and affect. ASSESSMENT AND PLAN: 1. Abscess in the cheek, submandibular abscess, tooth abscess. 2. Chronic obstructive pulmonary disease. 3. Nicotine addiction. 4. Acute hypoxemic respiratory distress. 5. Soft tissue swelling in the neck requiring IV steroids and switch IV antibiotics. 6. Possible get off the vent tomorrow. 7. Check labs in the morning. MMODL / IJN: [id number] /
[2019-12-19] MEDS ORDERED: CLINDAMYCIN 300 MG in DEXTROSE 5% IN WATER 50 ML IVPB SCH ×2 (18:00)
[2019-12-19 18:07] LABS: Glucose,Whole Blood 143 mg/dL (75-99)
--- NOTE | 2019-12-19 19:32 | CONS ---
CONSULTATION DATE OF THE CONSULTATION: 12/19/2019. DATE OF ADMISSION: 12/15/2019. REASON FOR CONSULTATION: Right neck abscess. HISTORY OF PRESENT ILLNESS: This patient is a 54-year-old female who is currently intubated and on a ventilator and therefore is not available for any historical information. All of the historical information has been gathered from the patient's chart. On 12/15/2019, the patient was admitted directly from her primary care physician's office for definitive treatment and evaluation of right neck swelling and abscess. The patient had stated that approximately a week prior to coming to her primary care doctor's office she experienced severe pain in the right side of her neck, right jaw. She denies any dysphagia or any shortness of breath or difficulty breathing. At that time, she was running a low-grade temperature and had a slightly elevated white count of approximately 15,000. Upon admission, she was placed on intravenous antibiotic, Zosyn which was eventually changed to Unasyn. Both an ENT consult and an oral surgeon consult was obtained and it was felt based on CT scan that the patient had an abscess of dental origin. Therefore, Dr. Quan took the patient to surgery and effected appropriate surgical drainage of the area as well as extraction of the offending tooth/teeth. At that time, cultures were obtained. However, so far nothing has grown from the cultures. Postoperatively, the patient stated that she felt better and again her white count was normal to moderately elevated, and the patient became afebrile. However, the original CT scan has shown evidence of significant swelling and possible fluid collection in the posterior aspect of the right side of the mandible with air bubbles. The swelling extended up to the area of the parotid space and into the nasopharynx. During the drainage, Dr. Quan stated that he only was able to obtain a small amount of serosanguineous fluid and no luli pus was actually emitted. Since that time, the patient has been draining some slight amount of purulent material orally. She was nasally intubated because of all the severe soft tissue swelling intraorally. Because of her slow improvement and slow response to the antibiotic treatment, ENT was consulted. Dr. Quan also added Flagyl 500 mg q.6h to the Unasyn treatment. The patient shakes her head and states that she is a nonsmoker. At the time that I saw the patient, the patient had been sedated. PAST MEDICAL HISTORY: Past medical history reveals patient has no known allergies. MEDICATIONS: She is on a significant number of home medications including tramadol, Requip, metformin, clonazepam, Norvasc, Coumadin, Topamax, Rivastigmine, Lyrica, Singulair, Latuda, Synthroid, HydroDIURIL, and Cymbalta. REVIEW OF SYSTEMS: Reveals that the cardiovascular system is positive with respect to hypertension and ASHD. PULMONARY: Negative. GASTROINTESTINAL is negative. METABOLIC/ENDOCRINE is positive for type 2 metabolic type 2 diabetes mellitus and hypothyroidism. MUSCULOSKELETAL SYSTEM is positive for fibromyalgia, restless legs syndrome ? NEUROLOGICAL is positive for seizure disorder. PHYSICAL EXAMINATION: The patient is in ICU and is currently nasally intubated and therefore is not available for any historical information. I was able to get some responses from the patient by having her either nod or blink her eyes for yes or no. Tympanic membrane middle ear spaces are free of any fluid or infection. Pupils equal, round, react to light and accommodation. Intranasal examination is not possible because of the nasal intubation. Examination of the oropharynx shows the patient has quite a bit of pooling of secretions, which has a slight amount of purulent tinge to it but is mainly serosanguineous. Palpation of neck is negative for any significant neck adenopathy or areas of actual fluctuance. There is some asymmetry of the right versus the left submandibular gland in that the right side is enlarged compared to the left and the same is true for the right parotid gland. Tenderness in these areas is moderate with deep palpation. I do not detect any areas of fluctuance with the palpation of the parotid gland. Palpation and intraorally of the posterior pharyngeal wall. The right peritonsillar area does not reveal any significant tenderness or any areas of actual fluctuance. Bimanual palpation of the right tonsillar area and the right neck does elicit some slight tenderness to deep palpation in that area. The patient has a rather thick neck and therefore it is difficult to assess whether there is any soft tissue edema beginning to form in the neck. The remainder of the head and neck exam is essentially unremarkable. This examination was essentially limited to the to examination of the head, neck because of the patient's intubation status. IMPRESSION: Right submandibular abscess with possible extension to the right parotid space. On reviewing the CT scan, there is evidence of air bubbles and quite a bit of phlegmon present. In addition, and just posterior to the right angle of the mandible and extending into the parotid area, there appears to be a collection of fluid. Whether this is pus or this is serosanguineous fluid is difficult to say. There were also some air bubbles noted within the parotid substance itself. No evidence of any significant adenopathy is noted in this area despite the apparent severity of the infection. Considering the patient's CT findings, the patient's appearance with respect to her illness, do not seem to coincide with each other. PLAN: This patient may have with respect to the plan, the patient may have turned a corner and therefore I think she has appropriate drainage both intraorally and with respect to the neck and if they is some of the areas of fluid collection in the parotid area eventually this will find a way to the drains because the fluid will most likely pursue the path of least resistance. I spoke with Dr. Quan and he was in agreement with my changing the Unasyn to clindamycin 300 mg IV q.6 and maintaining the Flagyl 500 mg IV q.6 hours. In addition to this, I am going to add a regimen of Decadron IV consisting of Decadron 10 mg IV q.8 hours x2 doses, then Decadron 5 mg IV q.8 hours x3 doses, and finally Decadron 2 mg IV q.8 hours x3 doses and then stop. Hopefully, this will reduce much of the soft tissue swelling. I have ordered a repeat CT scan with contrast of the neck for Friday the 12/20/2019 to be done anytime after 12:00 pm. I would hold off from extubating this patient until that CT scan is performed and would suggest making a decision based upon that CT scan and if not sure if the reduction in swelling is not really significant, I would recommend holding off possible extubation until Friday. Certainly, prior to any extubation, you could try just deflating the cuff of the tube and seeing how well the patient breathes around the endotracheal tube and that way would prevent any type of possible re-intubation. I certainly would like to refrain from doing a tracheostomy on this patient and possibly in spreading whatever infection she has into the bronchial tree. I will continue to follow this patient daily with you and monitor her response. I want to take this opportunity to thank you for allowing me to assist in the care of your patient. If I can be any further assistance, please feel free to call my office. MMODL / IJN: [id number] /
[2019-12-19] MEDS: CLINDAMYCIN 900 MG in DEXTROSE 5% IN WATER 50 ML IVPB SCH ×2 (20:13)
[2019-12-20] MEDS: HEPARIN SODIUM,PORCINE 5,000 UNIT/ML 1 ML VIAL SQ SCH ×4 (00:05→23:55)
[2019-12-20] MEDS: DEXAMETHASONE SOD PHOSPHATE 10 MG/ML 1 ML VIAL IV SCH ×4 (00:06→23:56)
[2019-12-20] MEDS: INSULIN ASPART (NovoLOG) 100 UNIT/ML VIAL SQ SCH ×4 (00:08→17:51)
[2019-12-20 00:16] LABS: Glucose,Whole Blood 164 mg/dL (75-99)
[2019-12-20] MEDS: HYDROmorphone 1 MG/ML 1 ML SYRINGE IVP PRN ×3 (00:34→19:55)
[2019-12-20] MEDS: PROPOFOL 1,000 MG in EMPTY BAG 1 BAG IV SCH ×9 (00:38→23:54)
[2019-12-20] MEDS: 1: MVI, ADULT NO.4 WITH VIT K 10 ML, TRACE (CONC-1ML/DOSE) 1 ML, PARENTERAL ELECTROLYTES IV SCH ×5 (02:38)
[2019-12-20 04:15] LABS: ABG Base Excess -0.3 mmol/L; ABG HCO3 23 mmol/L (21-25); ABG Oxygen Saturation 95.4 % (94-97); ABG PCO2 30 mmHg (35-45); ABG PH 7.49 (7.35-7.45); ABG PO2 73 mmHg (83-108); ABG TCO2 24 mmol/L (19-24); Allen Test Performed? Yes
[2019-12-20 04:36] LABS: Basophils # (A) 0.1 k/uL (0-0.2); Basophils % (A) 1 %; Eosinophils % (A) 0 %; HCT 33.1 % (34.0-46.0); HGB 10.1 gm/dL (11.4-16.0); Hypochromasia Marked; Lymphocytes # (A) 1.2 k/uL (1.0-4.8); Lymphocytes % (A) 13 %; MCH 25.5 pg (25.0-35.0); MCHC 30.5 g/dL (31.0-37.0); MCV 83.7 fL (80.0-100.0); Mean Platelet Volume 9.8; Monocytes # (A) 0.1 k/uL (0-1.0); Monocytes % (A) 1 %; Neutrophils # (A) 7.8 k/uL (1.3-7.7); Neutrophils % (A) 84 %; Platelet Count 373 k/uL (150-450); RBC 3.96 m/uL (3.80-5.40); WBC 9.2 k/uL (3.8-10.6)
[2019-12-20 04:48] LABS: ALT 70 U/L (4-34); AST 82 U/L (14-36); African American GFR (CKD) >90 (>60 ml/min/1.73 sqM); Albumin 2.9 g/dL (3.5-5.0); Alkaline Phosphatase 100 U/L (38-126); Anion Gap 6 mmol/L; Blood Urea Nitrogen 20 mg/dL (7-17); Calcium 8.7 mg/dL (8.4-10.2); Carbon Dioxide 24 mmol/L (22-30); Chloride 110 mmol/L (98-107); Glucose 150 mg/dL (74-99); Magnesium 2.2 mg/dL (1.6-2.3); Non-African American GFR(CKD) >90 (>60 ml/min/1.73 sqM); Phosphorus 3.5 mg/dL (2.5-4.5); Potassium 5.2 mmol/L (3.5-5.1); Sodium 140 mmol/L (137-145); Total Bilirubin 0.4 mg/dL (0.2-1.3)
[2019-12-20] MEDS: CLINDAMYCIN 900 MG in DEXTROSE 5% IN WATER 50 ML IVPB SCH ×4 (05:28→12:24)
[2019-12-20] MEDS: SODIUM CHLORIDE 0.9% 1,000 ML IV SCH ×2 (05:28→21:51)
[2019-12-20 05:59] LABS: Glucose,Whole Blood 174 mg/dL (75-99)
--- NOTE | 2019-12-20 06:09 | PN ---
PROGRESS NOTE DATE OF SERVICE: 12/19/2019 REASON FOR FOLLOWUP: Right lower jaw and parapharyngeal abscess. INTERVAL HISTORY: The patient is currently afebrile. Patient remains to be intubated on the vent. Hemodynamically stable, not requiring any pressor support. FiO2 is currently at 40%. Repeat CT did shows slight worsening of the abscess that has been evaluated both by and ENT. Antibiotic was adjusted by them with discontinuation of Zosyn with addition of clindamycin at 300 and Flagyl 500 mg. The patient unable to provide any history. PHYSICAL EXAMINATION: Blood pressure is 118/68 with a pulse of 68, temperature 98. She is 94% on 40% FiO2. General description is an elderly female lying in bed in no distress. HEENT EXAMINATION: The patient is orally intubated. LUNGS: Unlabored breathing, clear to auscultation anteriorly. HEART: S1, S2. Regular rate and rhythm. ABDOMEN: Soft. No tenderness. LABS: BUN of 20, creatinine 0.58. White count normal. The throat culture with anaerobic gram- negative bacilli. DIAGNOSTIC IMPRESSION AND PLAN: Patient with right lower jaw abscess with extension into the retropharyngeal area. The patient is status post extraction of tooth # and drainage of the abscess. Culture showing only anaerobic gram-negative. The patient's antibiotic has been adjusted to Rocephin and clindamycin and will be monitored closely. Await repeat CT and if it shows worsening, she will need for further surgical drainage. Continue with supportive care. MMODL / IJN: [id number] /
[2019-12-20] MEDS ORDERED: MORPHINE SULFATE 2 MG/ML SYRINGE IVP PRN (06:25)
[2019-12-20] MEDS: LORazepam 2 MG/ML INJ IV PRN ×2 (06:37→11:16)
[2019-12-20] MEDS: IPRATROPIUM-ALBUTEROL 3 ML NEB INHALATION SCH ×4 (07:28→19:46)
--- NOTE | 2019-12-20 08:09 | XR ---
EXAMINATION TYPE: XR chest 1V portable DATE OF EXAM: 12/20/2019 COMPARISON: Prior chest x-ray 12/19/2019 HISTORY: Intubated TECHNIQUE: Single frontal view of the chest is obtained. FINDINGS: Endotracheal tube is overlying the tracheal air column. Right-sided PICC line shows the ti p overlying the superior vena cava. No evident pneumothorax. Bibasilar increased attenuation persists , the heart is enlarged. Interstitium is increased, this perihilar vascular indistinctness, question prominence of pulmonary artery. IMPRESSION: Correlate for congestive heart failure. Pneumonia not excluded. Follow-up recommended. T here may be underlying pulmonary artery hypertension.
[2019-12-20] MEDS: PANTOPRAZOLE 40 MG/10 ML VIAL IV SCH (08:40)
[2019-12-20] MEDS: FUROSEMIDE 10 MG/ML 2 ML VIAL IV SCH (08:40)
[2019-12-20] MEDS: CHLORHEXIDINE GLUCONATE 15 ML CUP MUCOUS MEM SCH ×2 (08:40→21:26)
[2019-12-20 12:30] LABS: Glucose,Whole Blood 175 mg/dL (75-99)
--- NOTE | 2019-12-20 14:08 | CT ---
EXAMINATION TYPE: CT neck chest w con DATE OF EXAM: 12/20/2019 COMPARISON: CT neck 3 days ago and 5 days ago. HISTORY: Mandible abscess CT DLP: 788.9 mGycm. Automated Exposure Control for Dose Reduction was Utilized. TECHNIQUE: CT scan of the thorax is performed following with IV Contrast, patient injected with 100 mL of Isovue 300. FINDINGS: Neck: Stable endotracheal tube. Persistent right submandibular drainage catheter. Persistent asymmetr ic right submandibular subcutaneous edema and swelling with some irregular thin-walled rim-enhancing fluid collection superior and posterior to the percutaneous drainage catheter measuring roughly 2.8 x 1.9 cm current study is less well seen on most recent CT. Adjacent prominent lymph nodes remain pres ent. No midline shift available currently. LUNGS:-Right pleural effusion on current study. Posterior atelectasis and/or consolidation bilateral lower lungs increased in prominence from prior. Right-sided PICC line terminating in SVC. Endotrachea l tube terminates at the aortic knob level. MEDIASTINUM: There are no greater than 1 cm hilar or mediastinal lymph nodes. No pericardial effusi on is seen. Cardiomegaly present. Other: Dependent density in gallbladder could reflect vicarious secretion and/or gallbladder sludge IMPRESSION: 1. Persistent inflammatory change and residual abscess right submandibular level with continued impro vement from older studies. 2. Tiny bilateral pleural effusions with worsening posterior bilateral lower lung atelectasis and/or consolidation. Correlate Clinically.
[2019-12-20] MEDS: fentaNYL (PF) 50 MCG/ML 2 ML AMP IVP PRN ×2 (14:27→18:20)
[2019-12-20] MEDS ORDERED: MVI, ADULT NO.4 WITH VIT K 10 ML, TRACE (CONC-1ML/DOSE) 1 ML, PARENTERAL ELECTROLYTES 2... IV SCH ×5 (15:00)
--- NOTE | 2019-12-20 15:04 | P.PN ---
Subjective Progress Note Date: 12/20/19 (Critical care time 35 minutes) Principal diagnosis: arge mandibular abscesses on the right side Severe sepsis related to that Acute hypoxic respiratory failure multifactorial processes including sepsis due to mandibular abscess and Baseline COPD Severe hypokalemia Metabolic and respiratory alkalosis due to hyperventilation and hypokalemia Morbid obesity Anticoagulated On Coumadin 12/20/2019, patient seen and evaluated examined during the rounds labs reviewed medications reviewed care plan discussed with the staff at length also with Dr. Quan findings of ENT recommendations reviewed as well patient has been switched to clindamycin, been setting has been stable able to give decrease oxygen to 40% and PEEP down to 5 patient remains on 75 mics of propofol today she is complaining of some pain in the mouth and throat area she has been on Dilaudid 1 mg every 4 will try fentanyl to pain relief, will start checking the leak test around the ET tube also initiate CPAP and pressure support trial, cultures are growing anaerobes, patient remains on TPN, also getting dexamethasone for airway inflammation to cut down the swelling has been gently diuresed as well 12/18/2019, patient seen and evaluated examined during the rounds labs reviewed medications reviewed care plan discussed with the staff at length, patient remains on the PEEP of 8 and FiO2 of 60% we'll recommend to lower down the PEEP as well as FiO2 in next 24 hours, the computed tomography scan of the neck has been reviewed in fact increased swelling has been noted, patient remains on propofol, comfortable she is bradycardic but with stable hemodynamics continue supportive care continue antibiotics, excessive secretions oral antral the G- tube has been noted, chest x-ray revealed left lower lobe pneumonia as well as effusion, patient remains on IV fluid along with TPN would recommend to DC the IV fluids continue Lasix 20 mg daily 12/17/2019, patient seen eval examined during the rounds labs reviewed medications reviewed care plan discussed with the staff at length will continue the vent setting continue titrated oxygen down, once FiO2 is down to 40% with diffuse the PEEP to 5 plan is to keep on ventilator for another at least 48-72 hours patient is due for follow-up computed tomography scan of the neck and right submandibular area, remains on broad-spectrum antibiotics status post PICC line TPN has been started, patient is stable at 50 mics of propofol awake and comfortable in no distress is present she remains bradycardic but with stable hemodynamics, patient is status post postoperative day #2 of exploration and incision and drainage of abscess on the neck and jaw region on the right side for details please refer to operative note, output through the drains has been reviewed 12/16/2019, patient seen eval examined during the rounds labs reviewed medications reviewed care plan discussed with the staff at length, a shunt is postop day #1 of the abscess tooth extraction, right submandibular abscess with abscesses involving pharyngeal buccaland paper bag inspector space along with tonsillarpatient underwent extraction of tooth followed by incision and drainage of the soft tissue area around the submandible right pharyngealand right paper bag inspector space, for details look at the operative report, patient has extensive swelling, had hard time in being intubated, O G-tube has not been inserted, patient has a #6-Azeri endotracheal tube, she is awake and comfortable on propofol drip hemodynamic status stable bradycardic in rate of 14 is for the stable blood pressure and not on vasopressors remains on IV Unasyn, culture results and reports are pending, patient is high risk for rapid weaning and extubation will keep it intubated for another 72-96 hours, we'll start feeding through the PICC line which will be obtained INR has been consulted dietitian has been consulted, FiO2 have been decreased down to 60% BP remains 8, once FiO2 is 30-40% and will decrease the PEEP to 5 continue other vent setting patient does have slight respiratory alkalosis, with hypokalemia which is replaced protocol, white cell count is decreased to 12.4, This is a 54-year-old female with extensive history of smoking and nicotine abuse has a baseline COPD, patient also has a history of type 2 diabetes mellitus with history of hypertension and hypertensive cardiovascular disease has been on Coumadin as well with history of chronic persistent asthma hypothyroidism came into the hospital about 2-3 day history of increased swelling on the right face and mandibular area patient noted to be short of breath and hypoxia I was asked to evaluate the patient further and arterial blood gas was performed revealed metabolic and respiratory alkalosis along with hypoxia patient has been recommended to be placed on airflow patient's computed tomography scan is positive for large mandibular abscess patient is now being transferred to the ICU oral surgery on consult patient likely will undergo surgery later on today care plan discussed with infectious disease as well Objective - Vital Signs Vital signs: Vital Signs Temp 97.2 F L 12/20/19 12:00 Pulse 40 L 12/20/19 14:00 Resp 18 12/20/19 14:00 BP 112/74 12/20/19 14:00 Pulse Ox 95 12/20/19 14:00 Intake & Output 12/19/19 12/20/19 12/20/19 18:59 06:59 18:59 Intake Total 1540.9 2463.18 1423.967 Output Total 8100 385 7202 Balance 330.9 1618.18 -171.033 Weight 91.3 kg 91.3 kg Intake: IV 1100 900 856 Ampicillin-Sulbactam 3 gm 100 In Sodium Chloride 0.9% 100 ml @ 200 mls/hr IVPB Q6HR [facility] Rx#:[id number] Mvi, Adult No.4 with Vit 256 K 10 ml Trace (Conc-1Ml/ Dose) 1 ml Parenteral Electrolytes 20 ml Potassium Acetate 40 meq In Amino Acid 4.25%-D10w 1,000 ml @ 30 mls/hr IV . Q24H [facility] Rx#:[id number] Sodium Chloride 0.9% 1, 900 900 600 000 ml @ 75 mls/hr IV . [id number] [facility] Rx#:[id number] metroNIDAZOLE-NS PMX 500 100 mg In Saline 1 100ml.bag @ 100 mls/hr IVPB Q6HR [facility] Rx#:[id number] Intake, IV Titration 440.9 1563.18 567.967 Amount Clindamycin 300 mg In 50 Dextrose 5% in Water 50 ml @ 50 mls/hr IVPB Q6HR [facility] Rx#:[id number] Clindamycin 900 mg In 100 Dextrose 5% in Water 50 ml @ 50 mls/hr IVPB Q8H [facility] Rx#:[id number] Mvi, Adult No.4 with Vit 367.967 K 10 ml Trace (Conc-1Ml/ Dose) 1 ml Parenteral Electrolytes 20 ml Potassium Acetate 40 meq In Amino Acid 4.25%-D10w 1,000 ml @ 83 mls/hr IV . BY DURATION [facility] Rx#: [id number] Parenteral Electrolytes 1040.00 20 ml Potassium Acetate 40 meq In Amino Acid 4.25 %-D10w 1,000 ml @ 83 mls/ hr IV .BY DURATION [facility] Rx #:[id number] Propofol 1,000 mg In 290.9 323.18 200 Empty Bag 1 bag @ Titrate IV .Q0M [facility] Rx#: [id number] cefTRIAXone 2 gm In 100 Sodium Chloride 0.9% 50 ml @ 100 mls/hr IVPB Q24H [facility] Rx#:[id number] metroNIDAZOLE-NS PMX 500 100 mg In Saline 1 100ml.bag @ 100 mls/hr IVPB Q6HR [facility] Rx#:[id number] Output: Urine 4835 916 2118 Other: Voiding Method Indwelling Catheter Indwelling Catheter - Exam - Constitutional Constitutional Comment(s): Intubated on propofol RASS -1 - Constitutional General appearance: average body habitus, disheveled, mild distress - EENT Limited oral visibility is present due to swelling of the face and abscess in right mandibular region Eyes: PERRLA ENT: pharyngeal erythema, tonsillar swelling Ears: bilateral: normal - Respiratory Respiratory: bilateral: diminished, negative: dullness, rales, rhonchi, wheezing, prolonged expiration, prolonged inspiration - Cardiovascular Rhythm: regular Heart sounds: normal: S1, S2 - Gastrointestinal General gastrointestinal: normal bowel sounds - Integumentary Integumentary: normal turgor - Neurologic Neurologic: CNII-XII intact - Musculoskeletal Musculoskeletal: gait normal, generalized weakness, strength equal bilaterally - Psychiatric Psychiatric: Awake and alert calm and comfortable - Labs CBC & Chem 7: 12/20/19 04:08 12/20/19 04:08 Labs: Abnormal Lab Results - Last 24 Hours (Table) 12/19/19 12/19/19 12/20/19 Range/Units 17:15 17:55 00:05 Hgb (11.4-16.0) gm/dL Hct (34.0-46.0) % MCHC (31.0-37.0) g/dL RDW (11.5-15.5) % Neutrophils # (1.3-7.7) k/uL ABG pH (7.35-7.45) ABG pCO2 (35-45) mmHg ABG pO2 (83-108) mmHg Potassium (3.5-5.1) mmol/L Chloride (98-107) mmol/L BUN (7-17) mg/dL Glucose (74-99) mg/dL POC Glucose (mg/dL) 143 H 164 H (75-99) mg/dL Plasma Lactic Acid Eulalio 0.6 L (0.7-2.0) mmol/L AST (14-36) U/L ALT (4-34) U/L Total Protein (6.3-8.2) g/dL Albumin (3.5-5.0) g/dL 12/20/19 12/20/19 12/20/19 Range/Units 04:08 04:08 04:10 Hgb 10.1 L (11.4-16.0) gm/dL Hct 33.1 L (34.0-46.0) % MCHC 30.5 L (31.0-37.0) g/dL RDW 16.0 H (11.5-15.5) % Neutrophils # 7.8 H (1.3-7.7) k/uL ABG pH 7.49 H (7.35-7.45) ABG pCO2 30 L (35-45) mmHg ABG pO2 73 L (83-108) mmHg Potassium 5.2 H (3.5-5.1) mmol/L Chloride 110 H (98-107) mmol/L BUN 20 H (7-17) mg/dL Glucose 150 H (74-99) mg/dL POC Glucose (mg/dL) (75-99) mg/dL Plasma Lactic Acid Eulalio (0.7-2.0) mmol/L AST 82 H (14-36) U/L ALT 70 H (4-34) U/L Total Protein 6.0 L (6.3-8.2) g/dL Albumin 2.9 L (3.5-5.0) g/dL 12/20/19 12/20/19 Range/Units 05:48 12:18 Hgb (11.4-16.0) gm/dL Hct (34.0-46.0) % MCHC (31.0-37.0) g/dL RDW (11.5-15.5) % Neutrophils # (1.3-7.7) k/uL ABG pH (7.35-7.45) ABG pCO2 (35-45) mmHg ABG pO2 (83-108) mmHg Potassium (3.5-5.1) mmol/L Chloride (98-107) mmol/L BUN (7-17) mg/dL Glucose (74-99) mg/dL POC Glucose (mg/dL) 174 H 175 H (75-99) mg/dL Plasma Lactic Acid Eulalio (0.7-2.0) mmol/L AST (14-36) U/L ALT (4-34) U/L Total Protein (6.3-8.2) g/dL Albumin (3.5-5.0) g/dL Microbiology - Last 24 Hours (Table) 12/15/19 11:36 Blood Culture - Preliminary Blood No Growth after 120 hours 12/15/19 11:46 Blood Culture - Preliminary Blood No Growth after 120 hours 12/15/19 21:00 Anaerobic Culture - Final Throat Anaerobic Gm Negative Bacilli Assessment and Plan Assessment: Large mandibular abscesses on the right side due to infected tooth with abscess Compromised upper airway Severe sepsis related to that Acute hypoxic respiratory failure multifactorial processes including sepsis due to mandibular abscess and Baseline COPD Small bilateral pleural effusion Basilar tactile atelectasis possible pneumonia Severe hypokalemia Metabolic and respiratory alkalosis due to hyperventilation and hypokalemia Morbid obesity Plan: Follow-up on culture report Breathing treatments Broad-spectrum Antibiotics with anaerobic coverage ID and oral surgery consult following the patient, along with ENT Replace potassium as per protocol Leak test CPAP and pressure support trial PICC line TPN DVT prophylaxis Peptic ulcer disease prophylaxis Keep ventilator and slow weaning as tolerated, once oxygen is down to 40% we'll decrease the PEEP 5 Gentle diuresis Further recommendations pending plan of care as per clinical response of the patient Time with Patient: Greater than 30
[2019-12-20] MEDS: FUROSEMIDE 10 MG/ML 4 ML VIAL IV SCH ×2 (15:31→23:55)
[2019-12-20] MEDS ORDERED: ATROPINE SULFATE 0.1 MG/ML 10ML SYRINGE ONE (16:22)
[2019-12-20] MEDS: metroNIDAZOLE-NS PMX 500 MG in SALINE 1 100ML.BAG IVPB SCH ×2 (17:33→23:56)
[2019-12-20 17:48] LABS: Glucose,Whole Blood 134 mg/dL (75-99)
--- NOTE | 2019-12-20 22:29 | PN ---
PROGRESS NOTE DATE OF SERVICE: 12/20/2019 REASON FOR FOLLOWUP: Right nodule and parapharyngeal abscess. INTERVAL HISTORY: The patient is currently afebrile. Patient is breathing comfortably. The patient remains to be intubated on the vent. Hemodynamically stable not requiring any pressor support and no diarrhea has been reported by the nursing staff. PHYSICAL EXAMINATION: Blood pressure is 110/65, pulse of 40, temperature 97.9. She is 95% on 40% FiO2. General description is a middle-aged female up in the bed in no distress. The respiratory system: Unlabored breathing. Decreased breath sounds in the bases. No wheeze. Heart S1, S2. Regular rate and rhythm. Abdomen soft, no tenderness. LABS: Hemoglobin is 10.1, white count 9.2, BUN of 20, creatinine 0.52. The throat culture positive for anaerobic gram-negative bacilli. DIAGNOSTIC IMPRESSION AND PLAN: Patient with right lower molar abscess with mandibular abscess and parapharyngeal extension. Culture has been anaerobic gram-negative. Antibiotic will be adjusted to Flagyl 500 q.8h. Continue with Rocephin. May need further surgical Department. ENT and oral surgeon on the case. Monitor clinical course closely. MMODL / IJN: [id number] /
[2019-12-20 23:59] LABS: Glucose,Whole Blood 127 mg/dL (75-99)
[2019-12-21] MEDS: HYDROmorphone 1 MG/ML 1 ML SYRINGE IVP PRN ×2 (00:05→03:46)
[2019-12-21] MEDS: INSULIN ASPART (NovoLOG) 100 UNIT/ML VIAL SQ SCH ×5 (00:11→23:44)
--- NOTE | 2019-12-21 02:05 | PN ---
PROGRESS NOTE SUBJECTIVE: White female remains in ICU on a ventilator and broad-spectrum antibiotics. States she still has too much swelling in her neck and jaw to take her off the ventilator. She will continue with current treatment and possibly wean off the vent next couple days. She is alert. PHYSICAL EXAMINATION: Vital signs are stable. CARDIOVASCULAR: S1, S2. Lungs are clear. GI is soft. Bowel test is negative. ASSESSMENT: Submandibular abscesses. Continue with Flagyl, clindamycin, IV. Possible wean off the vent in the next 24 to 48 hours. ICU time 20 minutes. MMODL / IJN: [id number] /
[2019-12-21] MEDS: PROPOFOL 1,000 MG in EMPTY BAG 1 BAG IV SCH ×3 (02:51→08:45)
[2019-12-21 04:32] LABS: ABG Base Excess 3.8 mmol/L; ABG HCO3 28 mmol/L (21-25); ABG Oxygen Saturation 90.3 % (94-97); ABG PCO2 44 mmHg (35-45); ABG PH 7.42 (7.35-7.45); ABG PO2 63 mmHg (83-108); ABG TCO2 30 mmol/L (19-24); Allen Test Performed? Yes
[2019-12-21 05:24] LABS: Anisocytosis Slight; Basophils # (A) 0.1 k/uL (0-0.2); Basophils % (A) 1 %; Eosinophils % (A) 0 %; HCT 31.7 % (34.0-46.0); HGB 9.7 gm/dL (11.4-16.0); Hypochromasia Moderate; Lymphocytes # (A) 1.4 k/uL (1.0-4.8); Lymphocytes % (A) 16 %; MCH 25.7 pg (25.0-35.0); MCHC 30.6 g/dL (31.0-37.0); MCV 83.9 fL (80.0-100.0); Mean Platelet Volume 9.9; Monocytes # (A) 0.3 k/uL (0-1.0); Monocytes % (A) 3 %; Neutrophils # (A) 7.1 k/uL (1.3-7.7); Neutrophils % (A) 80 %; Platelet Count 345 k/uL (150-450); RBC 3.78 m/uL (3.80-5.40); RDW 16.8 % (11.5-15.5); WBC 8.9 k/uL (3.8-10.6)
[2019-12-21 05:36] LABS: African American GFR (CKD) >90 (>60 ml/min/1.73 sqM); Anion Gap 4 mmol/L; Blood Urea Nitrogen 22 mg/dL (7-17); Calcium 8.5 mg/dL (8.4-10.2); Carbon Dioxide 27 mmol/L (22-30); Chloride 108 mmol/L (98-107); Glucose 141 mg/dL (74-99); Magnesium 2.1 mg/dL (1.6-2.3); Non-African American GFR(CKD) >90 (>60 ml/min/1.73 sqM); Phosphorus 4.7 mg/dL (2.5-4.5); Potassium 4.3 mmol/L (3.5-5.1); Sodium 139 mmol/L (137-145)
[2019-12-21 06:06] LABS: Glucose,Whole Blood 154 mg/dL (75-99)
[2019-12-21] MEDS: IPRATROPIUM-ALBUTEROL 3 ML NEB INHALATION SCH ×4 (07:26→21:24)
--- NOTE | 2019-12-21 07:58 | XR ---
EXAMINATION TYPE: XR chest 1V portable DATE OF EXAM: 12/21/2019 COMPARISON: Prior chest x-ray 12/20/2019, CT 12/20/2019 HISTORY: Intubated TECHNIQUE: Single frontal view of the chest is obtained. FINDINGS: Endotracheal tube is overlying the tracheal air column. Right-sided PICC line shows a stab le position, tip overlying the superior vena cava. There is no evident pneumothorax. Heart is enlarge d. Bibasilar increased density obscures the hemidiaphragms and portions of the heart borders. IMPRESSION: Correlate for pneumonia, atelectasis. There are minimal effusions
[2019-12-21] MEDS: metroNIDAZOLE-NS PMX 500 MG in SALINE 1 100ML.BAG IVPB SCH ×3 (08:44→23:46)
[2019-12-21] MEDS: DEXAMETHASONE SOD PHOSPHATE 4 MG/ML 1 ML VIAL IV SCH ×4 (08:45→23:43)
[2019-12-21] MEDS: HEPARIN SODIUM,PORCINE 5,000 UNIT/ML 1 ML VIAL SQ SCH ×3 (08:45→23:44)
[2019-12-21] MEDS: FUROSEMIDE 10 MG/ML 4 ML VIAL IV SCH ×3 (08:45→23:43)
[2019-12-21] MEDS: SODIUM CHLORIDE 0.9% 1,000 ML IV SCH ×2 (08:46→20:06)
[2019-12-21] MEDS: PANTOPRAZOLE 40 MG/10 ML VIAL IV SCH (08:46)
[2019-12-21] MEDS: CHLORHEXIDINE GLUCONATE 15 ML CUP MUCOUS MEM SCH ×2 (08:46→21:26)
[2019-12-21] MEDS ORDERED: fentaNYL (PF) 1,000 MCG in SODIUM CHLORIDE 0.9% 80 ML IV SCH ×2 (09:00→09:30)
[2019-12-21] MEDS: LORazepam 2 MG/ML INJ IV PRN (09:27)
[2019-12-21] MEDS: HALOPERIDOL LACTATE 5 MG/ML 1 ML VIAL IVP PRN ×2 (12:27→20:06)
[2019-12-21] MEDS: LURASIDONE 80 MG TAB PO SCH (16:46)
--- NOTE | 2019-12-21 17:11 | P.PN ---
Subjective Progress Note Date: 12/21/19 This is a 54-year-old female with submandibular abscesses, in the ICU, on mechanical ventilation. Maintained on Flagyl and Rocephin IV. Vital signs stable. Chest x-ray reporting minimal effusions, atelectasis, possible pneumonia. Extubation in progress as per scenic arts supervisor. Blood sugars controlled. Afebrile, normal WBC. Objective - Vital Signs Vital signs: Vital Signs Temp 98.4 F 12/21/19 15:05 Pulse 63 12/21/19 15:05 Resp 18 12/21/19 15:05 BP 137/80 12/21/19 12:00 Pulse Ox 90 L 12/21/19 16:15 Intake & Output 12/20/19 12/21/19 12/21/19 18:59 06:59 18:59 Intake Total 2071.344 1735 1256.068 Output Total 3330 1765 2165 Balance -1258.656 -30 -908.932 Weight 91.3 kg 89.9 kg Intake: IV 1326 1335 1150 Clindamycin 900 mg In 50 50 Dextrose 5% in Water 50 ml @ 50 mls/hr IVPB Q8H [facility] Rx#:[id number] Mvi, Adult No.4 with Vit 376 360 300 K 10 ml Trace (Conc-1Ml/ Dose) 1 ml Parenteral Electrolytes 20 ml Potassium Acetate 40 meq In Amino Acid 4.25%-D10w 1,000 ml @ 30 mls/hr IV . Q24H [facility] Rx#:[id number] Sodium Chloride 0.9% 1, 900 825 750 000 ml @ 75 mls/hr IV . [id number] [facility] Rx#:[id number] metroNIDAZOLE-NS PMX 500 100 100 mg In Saline 1 100ml.bag @ 100 mls/hr IVPB Q8HR [facility] Rx#:[id number] Intake, IV Titration 745.344 400 106.068 Amount Mvi, Adult No.4 with Vit 367.967 K 10 ml Trace (Conc-1Ml/ Dose) 1 ml Parenteral Electrolytes 20 ml Potassium Acetate 40 meq In Amino Acid 4.25%-D10w 1,000 ml @ 83 mls/hr IV . BY DURATION [facility] Rx#: [id number] Propofol 1,000 mg In 377.377 400 106.068 Empty Bag 1 bag @ Titrate IV .Q0M [facility] Rx#: [id number] Output: Urine 3332 4559 2165 Other: Voiding Method Indwelling Catheter Indwelling Catheter Indwelling Catheter - Exam - Exam - Constitutional Constitutional Comment(s): Intubated on propofol - Constitutional General appearance: average body habitus, disheveled, mild distress - EENT Limited oral visibility is present due to swelling of the face and abscess in ri ght mandibular region Eyes: PERRLA - Respiratory Respiratory: bilateral: diminished, negative: dullness, rales, rhonchi, wheezing, prolonged expiration, prolonged inspiration - Cardiovascular Rhythm: regular Heart sounds: normal: S1, S2 - Gastrointestinal General gastrointestinal: normal bowel sounds - Integumentary Integumentary: normal turgor - Neurologic Neurologic: CNII-XII intact - Musculoskeletal Musculoskeletal: gait normal, generalized weakness, strength equal bilaterally - Psychiatric Psychiatric: Awake and alert calm and comfortable Microbiology 12/15/19 11:46 Blood Blood Culture - Final No Growth after 144 hours 12/15/19 11:36 Blood Blood Culture - Final No Growth after 144 hours 12/15/19 21:00 Throat Anaerobic Culture - Final Anaerobic Gm Negative Bacilli 12/15/19 21:00 Thigh - Right Gram Stain - Final 12/15/19 21:00 Thigh - Right Wound Culture - Final - Labs CBC & Chem 7: 12/21/19 04:52 12/21/19 04:52 Labs: Abnormal Lab Results - Last 24 Hours (Table) 12/20/19 12/20/19 12/21/19 Range/Units 17:36 23:47 04:30 RBC (3.80-5.40) m/uL Hgb (11.4-16.0) gm/dL Hct (34.0-46.0) % MCHC (31.0-37.0) g/dL RDW (11.5-15.5) % ABG pO2 63 L (83-108) mmHg ABG HCO3 28 H (21-25) mmol/L ABG Total CO2 30 H (19-24) mmol/L ABG O2 Saturation 90.3 L (94-97) % Chloride (98-107) mmol/L BUN (7-17) mg/dL Glucose (74-99) mg/dL POC Glucose (mg/dL) 134 H 127 H (75-99) mg/dL Phosphorus (2.5-4.5) mg/dL 12/21/19 12/21/19 12/21/19 Range/Units 04:52 04:52 05:54 RBC 3.78 L (3.80-5.40) m/uL Hgb 9.7 L (11.4-16.0) gm/dL Hct 31.7 L (34.0-46.0) % MCHC 30.6 L (31.0-37.0) g/dL RDW 16.8 H (11.5-15.5) % ABG pO2 (83-108) mmHg ABG HCO3 (21-25) mmol/L ABG Total CO2 (19-24) mmol/L ABG O2 Saturation (94-97) % Chloride 108 H (98-107) mmol/L BUN 22 H (7-17) mg/dL Glucose 141 H (74-99) mg/dL POC Glucose (mg/dL) 154 H (75-99) mg/dL Phosphorus 4.7 H (2.5-4.5) mg/dL Microbiology - Last 24 Hours (Table) 12/15/19 11:46 Blood Culture - Final Blood No Growth after 144 hours 12/15/19 11:36 Blood Culture - Final Blood No Growth after 144 hours Assessment and Plan Assessment: Submandibular abscesses on the right lower molar with parapharyngeal extension, culture reporting anaerobic gram-negative Sepsis, severe secondary to the above Possible bibasilar pneumonia Acute hypoxic respiratory failure, multifactorial including sepsis, infection, chronic COPD, ventilator dependent Obesity, BMI 32 Status post PICC line placement Plan: Continue on current medication regime ,monitoring and symptomatic treatment. Extubation in progress, patient aggressive, swearing, kicking at staff, pulling at Jose M drain, picking at her abscess site. auto body service mechanic ordered. Home bipolar medicines resumed. Psych consulted. Follow closely with multiple consults. Maintain antibiotics as per infectious disease. Prognosis guarded given multiple complex medical issues Further recommendations to follow. The impression and plan of care has been dictated as directed. : I performed a history and examination of this patient, discussed the same with the dictator. I agree with the dictator's note ,documented as a scribe. Any additional findings or plans will be noted.
--- NOTE | 2019-12-21 17:19 | P.CN ---
Psychiatric Consult - . Consult date: 12/21/19 Consult:: IDENTIFYING DATA: The patient is a 54-year-old female admitted to surgery service for pain and swelling of the right lower jaw. She was diagnosed with a large mandibular abscess and underwent surgical debridement . She is currently postoperative day #4. The hospitalist consult to psychiatry for "acute psychosis and abuse to self and staff." HISTORY OF PRESENT ILLNESS: I reviewed the medical record and attempted to interview the patient. She was confused and unable to provide a coherent history. According to her aid she has had periods of agitation. She was extubated this morning and began touching the surgical site and eventually pulled out the drainage tube. She has since been placed in soft arm restraints. She has also been verbally aggressive towards staff and has made attempts to strike staff. During the interview she made several nonsensical statements. At one point she pointed to a pile of facial tissues in a plastic najera and alleged that they contained oysters and maggots PAST PSYCHIATRIC HISTORY: She was unable to provide a coherent past psychiatric history. She alleged that she was treated for depression by a private psychiatrist. At one point during interview she stated that she has received psychiatric treatment for 3 years and later stated it was for 30 years. She is currently prescribed psychotropic medications include clonazepam (2 mg at bedtime and 1 mg a.m.), Aricept 5 mg daily, Cymbalta 60 mg twice a day. The prescription of Aricept suggest that she may have been diagnosed with a major neurocognitive disorder. PAST MEDICAL HISTORY: She is currently on the SICU and has multiple diagnoses including sepsis, acute hypoxic failure, hypokalemia, and respiratory alkalosis. Her past history of significant diabetes, hypertension, osteoarthritis, seizure disorder, thyroid disorder and the vascular disorder. ALLERGIES: NO KNOWN DRUG ALLERGIES. SUBSTANCE USE HISTORY: I was unable to obtain history of substance use FAMILY PSYCHIATRIC/SUBSTANCE USE HISTORY: Unknown. SOCIAL HISTORY: She lives alone in an apartment in [facility]. She receives social security disability. She has one son and one grandchild. MENTAL STATUS EXAM: She presented as a moderately obese disheveled appearing 54-year-old woman who looked older than her stated age. She was sitting upright in bed. Her right arm was restrained. During interview she was easily distra cted by activity in the hallway or in the room. She first with covers and her bedtime. She had difficulty concentrating and attending to the interview. She is alert and oriented to person and month. She was unaware of the name of the hospital and incorrectly thought the year was either 2001 or 2007. She was restless but not aggressive. Her speech was spontaneous and consistent with her mood. Her mood was labile. She did not express suicidal or homicidal ideation. She appeared guarded and suspicious but did not express clear paranoid ideation or delusional thoughts. Her thinking was concrete and at times incoherent. She described an experience clearly indicating visual hallucinations.. IMPRESSIONS: This was a suboptimal assessment because she is confused and unable to provide a coherent history. She has a history of a mental illness and her use outpatient medications suggest deficits of depression and possibly a cognitive disorder. Her presentation is consistent with a delirium and may be complicated by an underlying neurocognitive disorder . PLAN: Will Follow. I concur with the when necessary use of Haldol and Ativan for agitation or aggression. 12/21/19 17:03
--- NOTE | 2019-12-21 20:16 | PN ---
PROGRESS NOTE DATE OF SERVICE: 12/21/2019 SUBJECTIVE: The patient is slightly confused and complaining that she is being forced to stay at the hospital. She is not complaining of any pain, but she is agitated and is reaching for the Anderson drains, per the nurse. OBJECTIVE: The patient is in restraints. She is resting comfortably in bed. Her vital signs are stable. She is afebrile. Her white count is 8.9. Her head and neck exam reveals decreased soft tissue swelling of the right parotid and submandibular region. The right submandibular drain is in place and is draining minimally. Intraorally, there is decreased swelling. There is no purulent drainage. The one Anderson drain in the right roadway technician space is loose but still attached. The pharyngeal swelling has decreased. Upon digital exam, the floor of the mouth is soft. The patient appears confused and is making claims that are not coherent. ASSESSMENT: 1. Stable, post incision and drainage of right multi-space abscess of the face and neck. 2. Psychosis, most likely secondary to being off her psych medications. PLAN: A psych consult has been ordered. The patient's IV antibiotics now include Rocephin and Flagyl. The patient is being seen by Infectious Disease. The patient has just been extubated and breathing without any difficulty. The Jose M drains in the submandibular region and right buccal region were removed. The patient can begin a blenderized soft diet. I anticipate the patient leaving the ICU in 24 hours. MMODL / IJN: [id number] /
[2019-12-21] MEDS: clonazePAM 1 MG TAB PO SCH (21:26)
[2019-12-21] MEDS: PREGABALIN 75 MG CAP PO SCH (21:26)
[2019-12-21] MEDS: DULoxetine HCL 60 MG CAPSULE.DR PO SCH (21:26)
--- NOTE | 2019-12-21 21:33 | PN ---
PROGRESS NOTE DATE OF SERVICE: 12/21/2019 REASON FOR FOLLOWUP: Right lower jaw abscess. INTERVAL HISTORY: The patient is currently afebrile. Patient has been extubated this morning. Patient is breathing comfortably post extubation. No vomiting or diarrhea has been reported. PHYSICAL EXAMINATION: Blood pressure is 137/80 with a pulse of 85, temperature of 97.7. She is 90% on room air. General description is a middle-aged female up in the bed in no distress. HEENT examination: The patient did have a drainage catheter in her lower jaw into the mouth, not draining anything. LUNGS: Unlabored breathing. Clear to auscultation. Heart S1, S2. Regular rate and rhythm. Abdomen soft, no tenderness. LABS: Hemoglobin 9.4, white count 8.9 with a BUN of 22, creatinine 0.59. DIAGNOSTIC IMPRESSION AND PLAN: Patient with right jaw and parapharyngeal abscess, status post extraction of the teeth and drainage of the abscess culture with anaerobic gram-negative. The patient is covered with Rocephin and Flagyl, to continue and monitor clinical course closely. Continue supportive care. MMODL / IJN: [id number] /
--- NOTE | 2019-12-21 22:32 | PN ---
PROGRESS NOTE SUBJECTIVE: This patient is a 54-year-old white female, weaned off the ventilator. She is very confused, unclear where she is at or what is happening to her. I discussed the entire case with her. She has been without her psychiatric medicines for bipolar for at least 5 days. We will restart her home medications. She is saturating well on room air. Will continue with IV antibiotics for her acute mandibular abscess, COPD exacerbation, nicotine addiction, PAD. Continue current treatments. Restart psych medications. Follow up in next 24 to 48 hours. ICU time 20 minutes. MMODL / IJN: [id number] /
[2019-12-21 23:46] LABS: Glucose,Whole Blood 134 mg/dL (75-99)
[2019-12-22 05:30] LABS: Glucose,Whole Blood 121 mg/dL (75-99)
[2019-12-22 05:51] LABS: Anisocytosis Slight; Basophils # (A) 0.1 k/uL (0-0.2); Basophils % (A) 1 %; Eosinophils % (A) 0 %; HGB 10.9 gm/dL (11.4-16.0); Hypochromasia Slight; Lymphocytes # (A) 2.1 k/uL (1.0-4.8); Lymphocytes % (A) 16 %; MCH 25.8 pg (25.0-35.0); MCHC 31.3 g/dL (31.0-37.0); MCV 82.4 fL (80.0-100.0); Mean Platelet Volume 9.5; Monocytes # (A) 0.4 k/uL (0-1.0); Monocytes % (A) 3 %; Neutrophils # (A) 10.2 k/uL (1.3-7.7); Neutrophils % (A) 79 %; Platelet Count 428 k/uL (150-450); RBC 4.25 m/uL (3.80-5.40); RDW 16.5 % (11.5-15.5); WBC 12.9 k/uL (3.8-10.6)
[2019-12-22 06:02] LABS: African American GFR (CKD) >90 (>60 ml/min/1.73 sqM); Anion Gap 7 mmol/L; Blood Urea Nitrogen 22 mg/dL (7-17); Calcium 8.7 mg/dL (8.4-10.2); Carbon Dioxide 28 mmol/L (22-30); Chloride 107 mmol/L (98-107); Glucose 111 mg/dL (74-99); Magnesium 2.1 mg/dL (1.6-2.3); Non-African American GFR(CKD) >90 (>60 ml/min/1.73 sqM); Phosphorus 4.3 mg/dL (2.5-4.5); Potassium 3.7 mmol/L (3.5-5.1); Sodium 142 mmol/L (137-145)
[2019-12-22] MEDS: INSULIN ASPART (NovoLOG) 100 UNIT/ML VIAL SQ SCH ×4 (06:12→21:53)
[2019-12-22] MEDS: LEVOTHYROXINE 125 MCG TAB PO SCH (06:12)
[2019-12-22] MEDS ORDERED: Potassium Replacement Protocol 1 EACH MISC MISCELLANE PRN (06:33)
[2019-12-22] MEDS: POTASSIUM CHLORIDE 10 MEQ in WATER FOR INJECTION 1 100ML.BAG IVPB SCH ×2 (06:58→09:41)
[2019-12-22] MEDS: IPRATROPIUM-ALBUTEROL 3 ML NEB INHALATION SCH ×4 (08:50→20:36)
[2019-12-22] MEDS: MVI, ADULT NO.4 WITH VIT K 10 ML, TRACE (CONC-1ML/DOSE) 1 ML, PARENTERAL ELECTROLYTES 2... IV SCH ×10 (09:25→21:54)
[2019-12-22] MEDS: MONTELUKAST 10 MG TAB PO SCH (09:34)
[2019-12-22] MEDS: PREGABALIN 75 MG CAP PO SCH ×2 (09:34→20:09)
[2019-12-22] MEDS: HEPARIN SODIUM,PORCINE 5,000 UNIT/ML 1 ML VIAL SQ SCH ×3 (09:34→23:23)
[2019-12-22] MEDS: LURASIDONE 80 MG TAB PO SCH (09:34)
[2019-12-22] MEDS: DULoxetine HCL 60 MG CAPSULE.DR PO SCH ×2 (09:34→20:09)
[2019-12-22] MEDS: clonazePAM 1 MG TAB PO SCH ×2 (09:34→20:09)
[2019-12-22] MEDS: FUROSEMIDE 10 MG/ML 4 ML VIAL IV SCH ×3 (09:35→23:23)
[2019-12-22] MEDS: SODIUM CHLORIDE 0.9% 1,000 ML IV SCH ×2 (09:35→23:24)
[2019-12-22] MEDS: metroNIDAZOLE-NS PMX 500 MG in SALINE 1 100ML.BAG IVPB SCH ×3 (09:35→23:23)
[2019-12-22] MEDS: PANTOPRAZOLE 40 MG/10 ML VIAL IV SCH (09:35)
[2019-12-22] MEDS: DONEPEZIL 5 MG TAB PO SCH (09:41)
[2019-12-22 10:17] VITALS: BMI 30.9
--- NOTE | 2019-12-22 10:55 | CDI ---
Documentation Clarification Form Date: 12/22/2019 10:34:08 AM From: Xiomara AlexanderMURRAY, CCDS Admit Date: 12/15/2019 09:42:00 AM Patient Name: Angella Jordan Visit Number: [id number] Discharge Date: ATTENTION: The Clinical Documentation Specialists (CDI) and [facility] Coding Staff appreciate your assistance in clarifying documentation. Please respond to the clarification below the line at the bottom and electronically sign. The CDI & [facility] Coding staff will review the response and follow-up if needed. Please note: Queries are made part of the Legal Health Record. If you have any questions, please contact the author of this message via ITS. Dr. Israel Anderson: Patient was originally admitted as observation with dyspnea, COPD & hypoxemia with right oral facial swelling. Smoker & baseline COPD. Per the 12/21 progress notes: the patient is very confused. Per the 12/11 Psychiatric Consult: "This was a suboptimal assessment because she is confused and unable to provide a coherent history. She has a history of a mental illness and her use outpatient medications suggest deficits of depression and possibly a cognitive disorder. Her presentation is consistent with a delirium and may be complicated by an underlying neurocognitive disorder." History/Risk Factors: COPD, smoker, DM II, Hypertension, OA, Seizure disorder, Hypothyroid. Clinical Indicators: Per the H/P, patient was admitted to ICU for a significant mandibular abscess causing restriction of the O2 in her oropharyngeal tube, intubated due to extreme right oral facial swelling status post tooth removal & abscess, I&D per oral surgeon. VS 12/15: T 100.5^, P 77, R 18, BP 115/69, PO 92 2Lnc - 6Lnc - 7L nc - 50-60^ high flow, then intubated same day. Labs: WBC 15.0^, Neut 12.10^, [place] 1.05^, PT 71.0^, INR 6.9^^, Na 132*, K 2.5, CO2 92*, Glucose 116^, AST 47^, ALT 56^, Alk Phos 146^. Blood gas: pH 7.55^, pCO2 34*, pO2 57, HCO3 30^, T CO2 31^, O2 sat 91.3*. Treatment: IV Dilaudid, IV fluid 75, IV Kcl, IV Zosyn, IV Decadron, IV Phytonadione, INH Albuterol, IV Ampcillin, Heparin sq, Insulin sq, IV Lasix, IV Flagyl, IV Clindamycin, IV Rocephin, IV Clindamycin, *IV Ativan, *IV Haldol In your professional opinion, can you please clarify the following diagnosis: Encephalopathy ruled out Encephalopathy ruled in: o Metabolic Encephalopathy o Septic Encephalopathy o Toxic Encephalopathy Other, please specify Unable to determine (Last Revision: February 2018) MTDD
--- NOTE | 2019-12-22 11:43 | P.PN ---
Subjective Progress Note Date: 12/21/19 (Critical care time 35 minutes) Principal diagnosis: arge mandibular abscesses on the right side Severe sepsis related to that Acute hypoxic respiratory failure multifactorial processes including sepsis due to mandibular abscess and Baseline COPD Severe hypokalemia Metabolic and respiratory alkalosis due to hyperventilation and hypokalemia Morbid obesity Anticoagulated On Coumadin 12/21/2019 patient seen eval examined during the rounds labs reviewed medications reviewed, care plan discussed with the staff at length, patient did critical care time spent 35 minutes, air leak test is performed positive air leak was noted, patient was placed on CPAP of 5 and 15 off pressure support him a tidal volume were all observe closely depending upon she appears to be doing well pressure support and gradually wean down patient was observed for the CPAP and pressure support of 5 and 5 for almost 15-20 minutes, good ventilation was seen patient was given 40 mg of IV Lasix at the same time, good urine output has been noted plan is to extubate the patient successfully 12/20/2019, patient seen and evaluated examined during the rounds labs reviewed medications reviewed care plan discussed with the staff at length also with Dr. Quan findings of ENT recommendations reviewed as well patient has been switched to clindamycin, been setting has been stable able to give decrease oxygen to 40% and PEEP down to 5 patient remains on 75 mics of propofol today she is complaining of some pain in the mouth and throat area she has been on Dilaudid 1 mg every 4 will try fentanyl to pain relief, will start checking the leak test around the ET tube also initiate CPAP and pressure support trial, cultures are growing anaerobes, patient remains on TPN, also getting dexamethasone for airway inflammation to cut down the swelling has been gently diuresed as well 12/18/2019, patient seen and evaluated examined during the rounds labs reviewed medications reviewed care plan discussed with the staff at length, patient remains on the PEEP of 8 and FiO2 of 60% we'll recommend to lower down the PEEP as well as FiO2 in next 24 hours, the computed tomography scan of the neck has been reviewed in fact increased swelling has been noted, patient remains on propofol, comfortable she is bradycardic but with stable hemodynamics continue supportive care continue antibiotics, excessive secretions oral antral the G- tube has been noted, chest x-ray revealed left lower lobe pneumonia as well as effusion, patient remains on IV fluid along with TPN would recommend to DC the IV fluids continue Lasix 20 mg daily 12/17/2019, patient seen eval examined during the rounds labs reviewed med ications reviewed care plan discussed with the staff at length will continue the vent setting continue titrated oxygen down, once FiO2 is down to 40% with diffuse the PEEP to 5 plan is to keep on ventilator for another at least 48-72 hours patient is due for follow-up computed tomography scan of the neck and right submandibular area, remains on broad-spectrum antibiotics status post PICC line TPN has been started, patient is stable at 50 mics of propofol awake and comfortable in no distress is present she remains bradycardic but with stable hemodynamics, patient is status post postoperative day #2 of exploration and incision and drainage of abscess on the neck and jaw region on the right side for details please refer to operative note, output through the drains has been reviewed 12/16/2019, patient seen eval examined during the rounds labs reviewed medications reviewed care plan discussed with the staff at length, a shunt is postop day #1 of the abscess tooth extraction, right submandibular abscess with abscesses involving pharyngeal [place] pest control specialist space along with tonsillarpa tient underwent extraction of tooth followed by incision and drainage of the soft tissue area around the submandible right pharyngealand right pest control specialist space, for details look at the operative report, patient has extensive swelling, had hard time in being intubated, O G-tube has not been inserted, patient has a #6-Welsh endotracheal tube, she is awake and comfortable on propofol drip hemodynamic status stable bradycardic in rate of 14 is for the stable blood pressure and not on vasopressors remains on IV Unasyn, culture results and reports are pending, patient is high risk for rapid weaning and extubation will keep it intubated for another 72-96 hours, we'll start feeding through the PICC line which will be obtained INR has been consulted dietitian has been consulted, FiO2 have been decreased down to 60% BP remains 8, once FiO2 is 30-40% and will decrease the PEEP to 5 continue other vent setting patient does have slight respiratory alkalosis, with hypokalemia which is replaced protocol, white cell count is decreased to 12.4, This is a 54-year-old female with extensive history of smoking and nicotine abuse has a baseline COPD, patient also has a history of type 2 diabetes mellitus with history of hypertension and hypertensive cardiovascular disease h as been on Coumadin as well with history of chronic persistent asthma hypothyroidism came into the hospital about 2-3 day history of increased swelling on the right face and mandibular area patient noted to be short of breath and hypoxia I was asked to evaluate the patient further and arterial blood gas was performed revealed metabolic and respiratory alkalosis along with hypoxia patient has been recommended to be placed on airflow patient's computed tomography scan is positive for large mandibular abscess patient is now being transferred to the ICU oral surgery on consult patient likely will undergo surgery later on today care plan discussed with infectious disease as well Objective - Vital Signs Vital signs: Vital Signs Temp 36.9 F L 12/21/19 16:00 Pulse 54 L 12/21/19 17:00 Resp 15 12/21/19 17:00 BP 137/80 12/21/19 12:00 Pulse Ox 90 L 12/21/19 16:15 Intake & Output 12/20/19 12/21/19 12/21/19 18:59 06:59 18:59 Intake Total 2071.344 1735 1256.068 Output Total 3330 1765 2165 Balance -1258.656 -30 -908.932 Weight 91.3 kg 89.9 kg Intake: IV 1326 1335 1150 Clindamycin 900 mg In 50 50 Dextrose 5% in Water 50 ml @ 50 mls/hr IVPB Q8H [facility] Rx#:[id number] Mvi, Adult No.4 with Vit 376 360 300 K 10 ml Trace (Conc-1Ml/ Dose) 1 ml Parenteral Electrolytes 20 ml Potassium Acetate 40 meq In Amino Acid 4.25%-D10w 1,000 ml @ 30 mls/hr IV . Q24H [facility] Rx#:[id number] Sodium Chloride 0.9% 1, 900 825 750 000 ml @ 75 mls/hr IV . [id number] [facility] Rx#:[id number] metroNIDAZOLE-NS PMX 500 100 100 mg In Saline 1 100ml.bag @ 100 mls/hr IVPB Q8HR [facility] Rx#:[id number] Intake, IV Titration 745.344 400 106.068 Amount Mvi, Adult No.4 with Vit 367.967 K 10 ml Trace (Conc-1Ml/ Dose) 1 ml Parenteral Electrolytes 20 ml Potassium Acetate 40 meq In Amino Acid 4.25%-D10w 1,000 ml @ 83 mls/hr IV . BY DURATION [facility] Rx#: [id number] Propofol 1,000 mg In 377.377 400 106.068 Empty Bag 1 bag @ Titrate IV .Q0M [facility] Rx#: [id number] Output: Urine 3330 1765 2165 Other: Voiding Method Indwelling Catheter Indwelling Catheter Indwelling Catheter - Exam - Constitutional Constitutional Comment(s): Intubated on propofol RASS -1 - Constitutional General appearance: average body habitus, disheveled, mild distress - EENT Limited oral visibility is present due to swelling of the face and abscess in right mandibular region Eyes: PERRLA ENT: pharyngeal erythema, tonsillar swelling Ears: bilateral: normal - Respiratory Respiratory: bilateral: diminished, negative: dullness, rales, rhonchi, wheezing, prolonged expiration, prolonged inspiration - Cardiovascular Rhythm: regular Heart sounds: normal: S1, S2 - Gastrointestinal General gastrointestinal: normal bowel sounds - Integumentary Integumentary: normal turgor - Neurologic Neurologic: CNII-XII intact - Musculoskeletal Musculoskeletal: gait normal, generalized weakness, strength equal bilaterally - Psychiatric Psychiatric: Awake and alert calm and comfortable - Labs CBC & Chem 7: 12/22/19 05:31 12/22/19 05:31 Labs: Abnormal Lab Results - Last 24 Hours (Table) 12/20/19 12/20/19 12/21/19 Range/Units 17:36 23:47 04:30 RBC (3.80-5.40) m/uL Hgb (11.4-16.0) gm/dL Hct (34.0-46.0) % MCHC (31.0-37.0) g/dL RDW (11.5-15.5) % ABG pO2 63 L (83-108) mmHg ABG HCO3 28 H (21-25) mmol/L ABG Total CO2 30 H (19-24) mmol/L ABG O2 Saturation 90.3 L (94-97) % Chloride (98-107) mmol/L BUN (7-17) mg/dL Glucose (74-99) mg/dL POC Glucose (mg/dL) 134 H 127 H (75-99) mg/dL Phosphorus (2.5-4.5) mg/dL 12/21/19 12/21/19 12/21/19 Range/Units 04:52 04:52 05:54 RBC 3.78 L (3.80-5.40) m/uL Hgb 9.7 L (11.4-16.0) gm/dL Hct 31.7 L (34.0-46.0) % MCHC 30.6 L (31.0-37.0) g/dL RDW 16.8 H (11.5-15.5) % ABG pO2 (83-108) mmHg ABG HCO3 (21-25) mmol/L ABG Total CO2 (19-24) mmol/L ABG O2 Saturation (94-97) % Chloride 108 H (98-107) mmol/L BUN 22 H (7-17) mg/dL Glucose 141 H (74-99) mg/dL POC Glucose (mg/dL) 154 H (75-99) mg/dL Phosphorus 4.7 H (2.5-4.5) mg/dL Microbiology - Last 24 Hours (Table) 12/15/19 11:46 Blood Culture - Final Blood No Growth after 144 hours 12/15/19 11:36 Blood Culture - Final Blood No Growth after 144 hours Assessment and Plan Assessment: Large mandibular abscesses on the right side due to infected tooth with abscess Compromised upper airway Severe sepsis related to that Acute hypoxic respiratory failure multifactorial processes including sepsis due to mandibular abscess and Baseline COPD Small bilateral pleural effusion Basilar tactile atelectasis possible pneumonia Severe hypokalemia Metabolic and respiratory alkalosis due to hyperventilation and hypokalemia Morbid obesity Plan: Follow-up on culture report Proceed with extubation Breathing treatments Broad-spectrum Antibiotics with anaerobic coverage ID and oral surgery consult following the patient, along with ENT Replace potassium as per protocol Leak test positive PICC line TPN DVT prophylaxis Peptic ulcer disease prophylaxis Keep ventilator and slow weaning as tolerated, once oxygen is down to 40% we'll decrease the PEEP 5 Gentle diuresis Further recommendations pending plan of care as per clinical response of the patient Time with Patient: Greater than 30
--- NOTE | 2019-12-22 11:45 | P.PN ---
Subjective Progress Note Date: 12/22/19 (Critical care time 35 minutes) Principal diagnosis: arge mandibular abscesses on the right side Severe sepsis related to that Acute hypoxic respiratory failure multifactorial processes including sepsis due to mandibular abscess and Baseline COPD Severe hypokalemia Metabolic and respiratory alkalosis due to hyperventilation and hypokalemia Morbid obesity Anticoagulated On Coumadin 12/22/2019, patient seen eval examined during the rounds labs reviewed patient remains successfully extubated, remains on 2 L sitting upright in the bed minimal pain is present did require as dictated fentanyl, some episodes of anxiety and a prehension was noted last night but is stable now, patient is on nasal cannula swelling in the face have improved significantly, viewed, patient to be kept on liquid diet for now can be moved out of the ICU to the Med[facility] unit continue antibiotics continue pain medications 12/21/2019 patient seen eval examined during the rounds labs reviewed me dications reviewed, care plan discussed with the staff at length, patient did critical care time spent 35 minutes, air leak test is performed positive air leak was noted, patient was placed on CPAP of 5 and 15 off pressure support him a tidal volume were all observe closely depending upon she appears to be doing well pressure support and gradually wean down patient was observed for the CPAP and pressure support of 5 and 5 for almost 15-20 minutes, good ventilation was seen patient was given 40 mg of IV Lasix at the same time, good urine output has been noted plan is to extubate the patient successfully 12/20/2019, patient seen and evaluated examined during the rounds labs reviewed medications reviewed care plan discussed with the staff at length also with Dr. Quan findings of ENT recommendations reviewed as well patient has been switched to clindamycin, been setting has been stable able to give decrease oxygen to 40% and PEEP down to 5 patient remains on 75 mics of propofol today she is complaining of some pain in the mouth and throat area she has been on Dilaudid 1 mg every 4 will try fentanyl to pain relief, will start checking the leak test around the ET tube also initiate CPAP and pressure support trial, cultures are growing anaerobes, patient remains on TPN, also getting dexamethasone for airway inflammation to cut down the swelling has been gently diuresed as well 12/18/2019, patient seen and evaluated examined during the rounds labs reviewed medications reviewed care plan discussed with the staff at length, patient remains on the PEEP of 8 and FiO2 of 60% we'll recommend to lower down the PEEP as well as FiO2 in next 24 hours, the computed tomography scan of the neck has been reviewed in fact increased swelling has been noted, patient remains on propofol, comfortable she is bradycardic but with stable hemodynamics continue supportive care continue antibiotics, excessive secretions oral antral the G- tube has been noted, chest x-ray revealed left lower lobe pneumonia as well as effusion, patient remains on IV fluid along with TPN would recommend to DC the IV fluids continue Lasix 20 mg daily 12/17/2019, patient seen eval examined during the rounds labs reviewed medications reviewed care plan discussed with the staff at length will continue the vent setting continue titrated oxygen down, once FiO2 is down to 40% with diffuse the PEEP to 5 plan is to keep on ventilator for another at least 48-72 hours patient is due for follow-up computed tomography scan of the neck and right submandibular area, remains on broad-spectrum antibiotics status post PICC line TPN has been started, patient is stable at 50 mics of propofol awake and comfortable in no distress is present she remains bradycardic but with stable hemodynamics, patient is status post postoperative day #2 of exploration and incision and drainage of abscess on the neck and jaw region on the right side for details please refer to operative note, output through the drains has been reviewed 12/16/2019, patient seen eval examined during the rounds labs reviewed medications reviewed care plan discussed with the staff at length, a shunt is postop day #1 of the abscess tooth extraction, right submandibular abscess with abscesses involving pharyngeal buccaland information technology architect space along with tonsillarpatient underwent extraction of tooth followed by incision and drainage of the soft tissue area around the submandible right pharyngealand right information technology architect space, for details look at the operative report, patient has extensive swelling, had hard time in being intubated, O G-tube has not been inserted, patient has a #6-Chinese endotracheal tube, she is awake and comfortable on propofol drip hemodynamic status stable bradycardic in rate of 14 is for the stable blood pressure and not on vasopressors remains on IV Unasyn, culture results and reports are pending, patient is high risk for rapid weaning and extubation will keep it intubated for another 72-96 hours, we'll start feeding through the PICC line which will be obtained INR has been consulted dietitian has been consulted, FiO2 have been decreased down to 60% BP remains 8, once FiO2 is 30-40% and will decrease the PEEP to 5 continue other vent setting patient does have slight respiratory alkalosis, with hypokalemia which is replaced protocol, white cell count is decreased to 12.4, This is a 54-year-old female with extensive history of smoking and nicotine abuse has a baseline COPD, patient also has a history of type 2 diabetes mellitus with history of hypertension and hypertensive cardiovascular disease has been on Coumadin as well with history of chronic persistent asthma hypothyroidism came into the hospital about 2-3 day history of increased swelling on the right face and mandibular area patient noted to be short of breath and hypoxia I was asked to evaluate the patient further and arterial blood gas was performed revealed metabolic and respiratory alkalosis along with hypoxia patient has been recommended to be placed on airflow patient's computed tomography scan is positive for large mandibular abscess patient is now being transferred to the ICU oral surgery on consult patient likely will undergo surgery later on today care plan discussed with infectious disease as well Objective - Vital Signs Vital signs: Vital Signs Temp 98.6 F 12/22/19 08:00 Pulse 55 L 12/22/19 11:00 Resp 16 12/22/19 11:00 BP 113/94 12/22/19 11:00 Pulse Ox 94 L 12/22/19 11:00 Intake & Output 12/21/19 12/22/19 12/22/19 18:59 06:59 18:59 Intake Total 0861.512 0906 555 Output Total 2485 2570 630 Balance -1018.932 -1305 -75 Weight 87 kg 87 kg Intake: IV 1360 1265 555 Mvi, Adult No.4 with Vit 360 360 30 K 10 ml Trace (Conc-1Ml/ Dose) 1 ml Parenteral Electrolytes 20 ml Potassium Acetate 40 meq In Amino Acid 4.25%-D10w 1,000 ml @ 30 mls/hr IV . Q24H [facility] Rx#:[id number] Potassium Chloride 10 meq 200 In Water For Injection 1 100ml.bag @ 100 mls/hr IVPB Q1H [facility] Rx#: [id number] Sodium Chloride 0.9% 1, 900 755 225 000 ml @ 75 mls/hr IV . [id number] [facility] Rx#:[id number] cefTRIAXone 2 gm In 50 Sodium Chloride 0.9% 50 ml @ 100 mls/hr IVPB Q24H [facility] Rx#:[id number] metroNIDAZOLE-NS PMX 500 100 100 100 mg In Saline 1 100ml.bag @ 100 mls/hr IVPB Q8HR [facility] Rx#:[id number] Intake, IV Titration 106.068 Amount Propofol 1,000 mg In 106.068 Empty Bag 1 bag @ Titrate IV .Q0M [facility] Rx#: [id number] Output: Urine 2485 2570 630 Other: Voiding Method Indwelling Catheter Indwelling Catheter Indwelling Catheter # Bowel Movements 1 1 - Exam - Constitutional Constitutional Comment(s): Intubated on propofol RASS -1 - Constitutional General appearance: average body habitus, disheveled, mild distress - EENT Limited oral visibility is present due to swelling of the face and abscess in right mandibular region Eyes: PERRLA ENT: pharyngeal erythema, tonsillar swelling Ears: bilateral: normal - Respiratory Respiratory: bilateral: diminished, negative: dullness, rales, rhonchi, wheezing, prolonged expiration, prolonged inspiration - Cardiovascular Rhythm: regular Heart sounds: normal: S1, S2 - Gastrointestinal General gastrointestinal: normal bowel sounds - Integumentary Integumentary: normal turgor - Neurologic Neurologic: CNII-XII intact - Musculoskeletal Musculoskeletal: gait normal, generalized weakness, strength equal bilaterally - Psychiatric Psychiatric: Awake and alert calm and comfortable - Labs CBC & Chem 7: 12/22/19 05:31 12/22/19 05:31 Labs: Abnormal Lab Results - Last 24 Hours (Table) 12/21/19 12/22/19 12/22/19 Range/Units 23:34 05:18 05:31 WBC (3.8-10.6) k/uL Hgb (11.4-16.0) gm/dL RDW (11.5-15.5) % Neutrophils # (1.3-7.7) k/uL BUN 22 H (7-17) mg/dL Glucose 111 H (74-99) mg/dL POC Glucose (mg/dL) 134 H 121 H (75-99) mg/dL 12/22/19 Range/Units 05:31 WBC 12.9 H (3.8-10.6) k/uL Hgb 10.9 L (11.4-16.0) gm/dL RDW 16.5 H (11.5-15.5) % Neutrophils # 10.2 H (1.3-7.7) k/uL BUN (7-17) mg/dL Glucose (74-99) mg/dL POC Glucose (mg/dL) (75-99) mg/dL Microbiology - Last 24 Hours (Table) 12/15/19 11:46 Blood Culture - Final Blood No Growth after 144 hours 12/15/19 11:36 Blood Culture - Final Blood No Growth after 144 hours Assessment and Plan Assessment: Large mandibular abscesses on the right side due to infected tooth with abscess Compromised upper airway Severe sepsis related to that Acute hypoxic respiratory failure multifactorial processes including sepsis due to mandibular abscess and Baseline COPD, successfully extubated Small bilateral pleural effusion Basilar tactile atelectasis possible pneumonia Severe hypokalemia Metabolic and respiratory alkalosis due to hyperventilation and hypokalemia Morbid obesity Plan: Follow-up on culture report Successfully remain extubated on 2 L nasal cannula Breathing treatments Broad-spectrum Antibiotics with anaerobic coverage ID and oral surgery consult following the patient, along with ENT Replace potassium as per protocol PICC line TPN can be tapered and DC'd DVT prophylaxis Peptic ulcer disease prophylaxis Gentle diuresis Further recommendations pending plan of care as per clinical response of the patient Time with Patient: Greater than 30
[2019-12-22 11:59] LABS: Glucose,Whole Blood 168 mg/dL (75-99)
--- NOTE | 2019-12-22 15:31 | P.CON ---
Consult Note - . Consult date: 12/22/19 Assessment/Plan:: I reviewed the medical record, spoke with the assigned nurse and interviewed the patient. Patient is no longer in soft restraints. The nurse reported she has had no aggressive episodes over the last 24 hours. She is unaware of reports that Angella has been responding to internal stimuli i.e. experiencing auditory or visual hallucinations. She has not required treatment with IV lorazepam. She was able to provide information about her past psychiatric history. Her primary care provider has been prescribed psychotropic medications for the last 4 years since her psychiatrist, Dr. Monahan, retired in 2015. She had one psychiatric hospitalization following a miscarriage. Angella was sedated but responsive. She made eye contact and attempted to interview. She was able to explain the reason for this hospitalization. She understood that treatment required surgery and antibiotics. Her affect was blunted. She denied experiencing suicidal homicidal ideation. Her speech was spontaneous, slow but organized. She denied experiencing auditory or visual hallucinations and did not appear to be responding to internal stimuli. She was oriented to person, place and time. Impression: Her postoperative delirium is resolving Recommendation: There is no indication for psychiatric treatment at this time. We will sign off on this case. Thank you for the consult
[2019-12-22 18:12] LABS: Glucose,Whole Blood 231 mg/dL (75-99)
--- NOTE | 2019-12-22 18:15 | PN ---
PROGRESS NOTE DATE OF SERVICE: 12/22/2019 REASON FOR FOLLOWUP: Right lower jaw abscess. INTERVAL HISTORY: The patient is currently afebrile. The patient is breathing comfortably. The patient's pain to the right lower jaw is currently controlled. The drainage catheter has been removed. Denies difficulty in swallowing. No nausea, no vomiting. No abdominal pain or diarrhea. PHYSICAL EXAMINATION: Her blood pressure is 114/66, pulse of 55, temperature 98.6. She is 92% on 5 L nasal cannula. General description is a middle-aged female up in the bed in no distress. HEENT EXAMINATION: Slight pallor. No scleral icterus. LUNGS: Unlabored breathing. Clear to auscultation anteriorly. HEART: S1, S2. Regular rate and rhythm. ABDOMEN: Soft. No tenderness. LABS: Hemoglobin 10.9, white count 12.9. BUN of 22, creatinine 0.69. Wound culture with anaerobic Gram-negative. DIAGNOSTIC IMPRESSION AND PLAN: Patient with right lower jaw abscess from infected tooth with some parapharyngeal extension, status post surgery. Patient is currently covered with Rocephin and Flagyl. That will be continued. White count did show slight upward trend. That will be monitored closely. Possibly related to steroids. Continue with supportive care. MMODL / IJN: [id number] /
[2019-12-22] MEDS: ACETAMINOPHEN TAB 325 MG TAB PO PRN (18:22)
--- NOTE | 2019-12-22 18:59 | P.PN ---
Subjective Progress Note Date: 12/22/19 This is a 54-year-old female with submandibular abscesses, in the ICU, on mechanical ventilation. Maintained on Flagyl and Rocephin IV. Vital signs stable. Chest x-ray reporting minimal effusions, atelectasis, possible pneumonia. Extubation in progress as per on line csr. Blood sugars controlled. Afebrile, normal WBC. 12/22/2019 maintained on antibiotics of Rocephin, Flagyl as per ID. Throat cul ture reporting rare anaerobic gram-negative bacilli. afebrile, WBC increased to 12.9. tolerating full liquid diet with no nausea or vomiting, been advanced to ground. Facial edema improving Maintaining O2 sats in the 90s on 5 L nasal cannula. Pain currently controlled. Telemetry sinus rhythm. Objective - Vital Signs Vital signs: Vital Signs Temp 98.6 F 12/22/19 16:00 Pulse 60 12/22/19 18:00 Resp 19 12/22/19 18:00 BP 121/65 12/22/19 18:00 Pulse Ox 93 L 12/22/19 18:00 Intake & Output 12/21/19 12/22/19 12/22/19 18:59 06:59 18:59 Intake Total 9180.660 1164 1105 Output Total 2485 2570 1830 Balance -1018.932 -1305 -725 Weight 87 kg 87 kg Intake: IV 1360 1265 1105 Mvi, Adult No.4 with Vit 360 360 30 K 10 ml Trace (Conc-1Ml/ Dose) 1 ml Parenteral Electrolytes 20 ml Potassium Acetate 40 meq In Amino Acid 4.25%-D10w 1,000 ml @ 30 mls/hr IV . Q24H [facility] Rx#:[id number] Potassium Chloride 10 meq 200 In Water For Injection 1 100ml.bag @ 100 mls/hr IVPB Q1H [facility] Rx#: [id number] Sodium Chloride 0.9% 1, 900 755 675 000 ml @ 75 mls/hr IV . [id number] [facility] Rx#:[id number] cefTRIAXone 2 gm In 50 Sodium Chloride 0.9% 50 ml @ 100 mls/hr IVPB Q24H [facility] Rx#:[id number] metroNIDAZOLE-NS PMX 500 100 100 200 mg In Saline 1 100ml.bag @ 100 mls/hr IVPB Q8HR [facility] Rx#:[id number] Intake, IV Titration 106.068 Amount Propofol 1,000 mg In 106.068 Empty Bag 1 bag @ Titrate IV .Q0M [facility] Rx#: [id number] Output: Urine 2485 2570 1830 Other: Voiding Method Indwelling Catheter Indwelling Catheter Indwelling Catheter # Bowel Movements 1 1 - Exam - Exam - Constitutional Constitutional Comment(s): Intubated on propofol - Constitutional General appearance: average body habitus, disheveled, mild distress - EENT Improving swelling of the face. Eyes: PERRLA - Respiratory Respiratory: bilateral: diminished, negative: dullness, rales, rhonchi, wheezing, prolonged expiration, prolonged inspiration - Cardiovascular Rhythm: regular Heart sounds: normal: S1, S2 - Gastrointestinal General gastrointestinal: normal bowel sounds - Integumentary Integumentary: normal turgor - Neurologic Neurologic: CNII-XII intact - Musculoskeletal Musculoskeletal: gait normal, generalized weakness, strength equal bilaterally - Psychiatric Psychiatric: Awake and alert calm and comfortable Microbiology 12/15/19 11:46 Blood Blood Culture - Final No Growth after 144 hours 12/15/19 11:36 Blood Blood Culture - Final No Growth after 144 hours 12/15/19 21:00 Throat Anaerobic Culture - Final Anaerobic Gm Negative Bacilli 12/15/19 21:00 Thigh - Right Gram Stain - Final 12/15/19 21:00 Thigh - Right Wound Culture - Final - Labs CBC & Chem 7: 12/22/19 05:31 12/22/19 05:31 Labs: Abnormal Lab Results - Last 24 Hours (Table) 12/21/19 12/22/19 12/22/19 Range/Units 23:34 05:18 05:31 WBC (3.8-10.6) k/uL Hgb (11.4-16.0) gm/dL RDW (11.5-15.5) % Neutrophils # (1.3-7.7) k/uL BUN 22 H (7-17) mg/dL Glucose 111 H (74-99) mg/dL POC Glucose (mg/dL) 134 H 121 H (75-99) mg/dL 12/22/19 12/22/19 12/22/19 Range/Units 05:31 11:47 18:11 WBC 12.9 H (3.8-10.6) k/uL Hgb 10.9 L (11.4-16.0) gm/dL RDW 16.5 H (11.5-15.5) % Neutrophils # 10.2 H (1.3-7.7) k/uL BUN (7-17) mg/dL Glucose (74-99) mg/dL POC Glucose (mg/dL) 168 H 231 H (75-99) mg/dL Microbiology - Last 24 Hours (Table) 12/15/19 11:46 Blood Culture - Final Blood No Growth after 144 hours 12/15/19 11:36 Blood Culture - Final Blood No Growth after 144 hours Assessment and Plan Assessment: Submandibular abscesses on the right lower molar with parapharyngeal extension, culture reporting anaerobic gram-negative Sepsis, severe secondary to the above Possible bibasilar pneumonia Acute hypoxic respiratory failure, multifactorial including sepsis, infection, chronic COPD, ventilator dependent Obesity, BMI 32 Status post PICC line placement Plan: Continue on current medication regime ,monitoring and symptomatic treatment. Follow cultures , WBC closely.repeat labs ordered for a.m. Maintain antibiotics as per infectious disease. Patient has been downgraded to [facility] to assist with discharge planning to subacute rehab. Prognosis guarded given multiple complex medical issues. The impression and plan of care has been dictated as directed. : I performed a history and examination of this patient, discussed the same with the dictator. I agree with the dictator's note ,documented as a scribe. Any additional findings or plans will be noted.
--- NOTE | 2019-12-22 20:37 | PN ---
PROGRESS NOTE DATE OF POSTOPERATIVE NOTE: 12/22/2019 SUBJECTIVE: The patient is resting comfortably in bed. This is postoperative day number 7. She is complaining of some pain to her right ear. She states that she has no oral pain. She is drinking without difficulty. She is afebrile and denies any sweats or temperature. OBJECTIVE: Her vital signs are stable. She is afebrile. She is alert. She understands that she is in the hospital. Her white count was 12.2 today. Head and neck examination revealed minimal soft tissue swelling of the right parotid and mandibular and submandibular space. The region is much softer than previously noted. The drains are removed. There is no drainage from the right submandibular region where the drain previously was. As mentioned, the area is soft and nontender and without erythema. Intraoral examination reveals zero purulent discharge. The floor of the mouth is soft. There is minimal right pharyngeal swelling. The area is mildly tender to palpation. The right buccal swelling has decreased significantly and there is no drainage. ASSESSMENT: The patient is much improved post incision and drainage of multifacial spaces. The patient is tolerating a liquid diet. The patient is tolerating the IV antibiotics. PLAN: The patient will continue the IV Rocephin and Flagyl. She can advance her diet as tolerated from a blenderized and soft diet to a regular diet as tolerated. She is to apply heat to the right face. Oral hygiene instructions were reviewed. From a surgical standpoint, the patient is getting ready to be discharged. The patient will follow up with me on a p.r.n. basis. I will sign off and if needed, please consult me. MMCLINTL / IJN: [id number] /
[2019-12-22] MEDS: CHLORHEXIDINE GLUCONATE 15 ML CUP MUCOUS MEM SCH (21:54)
[2019-12-22 22:22] LABS: Glucose,Whole Blood 103 mg/dL (75-99)
[2019-12-23] MEDS: ACETAMINOPHEN TAB 325 MG TAB PO PRN ×2 (03:33→13:52)
[2019-12-23 05:16] LABS: Anisocytosis Slight; Basophils # (A) 0.1 k/uL (0-0.2); Basophils % (A) 1 %; Eosinophils % (A) 0 %; HCT 35.1 % (34.0-46.0); HGB 11.1 gm/dL (11.4-16.0); Lymphocytes % (A) 15 %; MCH 25.8 pg (25.0-35.0); MCHC 31.5 g/dL (31.0-37.0); MCV 81.9 fL (80.0-100.0); Mean Platelet Volume 9.8; Monocytes # (A) 0.6 k/uL (0-1.0); Monocytes % (A) 4 %; Neutrophils # (A) 11.1 k/uL (1.3-7.7); Neutrophils % (A) 79 %; Platelet Count 327 k/uL (150-450); RBC 4.29 m/uL (3.80-5.40)
[2019-12-23 05:20] LABS: Ionized Calcium 4.8 mg/dL (4.5-5.3)
[2019-12-23 05:29] LABS: African American GFR (CKD) >90 (>60 ml/min/1.73 sqM); Anion Gap 6 mmol/L; Blood Urea Nitrogen 18 mg/dL (7-17); Calcium 8.4 mg/dL (8.4-10.2); Carbon Dioxide 28 mmol/L (22-30); Chloride 103 mmol/L (98-107); Glucose 110 mg/dL (74-99); Magnesium 1.9 mg/dL (1.6-2.3); Non-African American GFR(CKD) >90 (>60 ml/min/1.73 sqM); Phosphorus 4.3 mg/dL (2.5-4.5); Potassium 2.8 mmol/L (3.5-5.1); Sodium 137 mmol/L (137-145)
[2019-12-23] MEDS: LEVOTHYROXINE 125 MCG TAB PO SCH (07:19)
[2019-12-23] MEDS: HEPARIN SODIUM,PORCINE 5,000 UNIT/ML 1 ML VIAL SQ SCH ×2 (07:20→15:29)
[2019-12-23] MEDS: metroNIDAZOLE-NS PMX 500 MG in SALINE 1 100ML.BAG IVPB SCH ×2 (07:20→15:29)
[2019-12-23] MEDS: FUROSEMIDE 10 MG/ML 4 ML VIAL IV SCH ×2 (07:20→15:29)
[2019-12-23] MEDS: IPRATROPIUM-ALBUTEROL 3 ML NEB INHALATION SCH ×4 (07:55→20:45)
[2019-12-23] MEDS: INSULIN ASPART (NovoLOG) 100 UNIT/ML VIAL SQ SCH ×4 (08:36→23:00)
[2019-12-23] MEDS: PREGABALIN 75 MG CAP PO SCH ×2 (11:52→22:53)
[2019-12-23] MEDS: DULoxetine HCL 60 MG CAPSULE.DR PO SCH ×2 (11:52→22:53)
[2019-12-23] MEDS: MONTELUKAST 10 MG TAB PO SCH (11:52)
[2019-12-23] MEDS: PANTOPRAZOLE 40 MG/10 ML VIAL IV SCH (11:52)
[2019-12-23] MEDS: clonazePAM 1 MG TAB PO SCH ×2 (11:52→22:52)
[2019-12-23] MEDS: DONEPEZIL 5 MG TAB PO SCH (11:53)
[2019-12-23] MEDS: LURASIDONE 80 MG TAB PO SCH (11:53)
[2019-12-23] MEDS: SODIUM CHLORIDE 0.9% 1,000 ML IV SCH (12:01)
[2019-12-23 12:09] LABS: Glucose,Whole Blood 105 mg/dL (75-99)
--- NOTE | 2019-12-23 14:02 | PN ---
PROGRESS NOTE DATE OF SERVICE: 12/23/2019 REASON FOR FOLLOWUP: Right lower jaw abscess. INTERVAL HISTORY: The patient is currently afebrile. Patient has been breathing comfortably. Patient denies having any chest pain or cough. Right lower jaw pain has improved. No nausea, no abdominal pain, no diarrhea. PHYSICAL EXAMINATION: Blood pressure is 145/80 with a pulse of 68, temperature 98.4. He is 92% on 5 L nasal cannula. General description is a middle-aged female, up in the bed in no distress. RESPIRATORY SYSTEM: Unlabored breathing, clear to auscultation anteriorly. HEART: S1, S2. Regular rate and rhythm. ABDOMEN: Soft, no tenderness. EXTREMITIES: No edema of the feet. LABS: White count of 240. DIAGNOSTIC IMPRESSION AND PLAN: Patient with right jaw abscess, status post surgery, status post extubation, now with slight worsening of white count. Will add coverage for aisha, continue Rocephin and Flagyl. If any further worsening of white count, will need a repeat CT. Continue supportive care. MMODL / IJN: [id number] /
--- NOTE | 2019-12-23 15:21 | P.PN ---
Subjective Progress Note Date: 12/23/19 Principal diagnosis: arge mandibular abscesses on the right side Severe sepsis related to that Acute hypoxic respiratory failure multifactorial processes including sepsis due to mandibular abscess and Baseline COPD Severe hypokalemia Metabolic and respiratory alkalosis due to hyperventilation and hypokalemia Morbid obesity Anticoagulated On Coumadin 12/23/2019, patient seen eval examined during the rounds labs reviewed medications reviewed care plan discussed, patient swelling has improved significantly remains afebrile pain has improved, on 5 L nasal cannula oxygen saturation 92%, 12/22/2019, patient seen eval examined during the rounds labs reviewed patient remains successfully extubated, remains on 2 L sitting upright in the bed minimal pain is present did require as dictated fentanyl, some episodes of anxiety and a prehension was noted last night but is stable now, patient is on nasal cannula swelling in the face have improved significantly, viewed, patient to be kept on liquid diet for now can [facility] continue antibiotics continue pain medications 12/21/2019 patient seen eval examined during the rounds labs reviewed medications reviewed, care plan discussed with the staff at length, patient did critical care time spent 35 minutes, air leak test is performed positive air leak was noted, patient was placed on CPAP of 5 and 15 off pressure support him a tidal volume were all observe closely depending upon she appears to be doing well pressure support and gradually wean down patient was observed for the CPAP and pressure support of 5 and 5 for almost 15-20 minutes, good ventilation was seen patient was given 40 mg of IV Lasix at the same time, good urine output has been noted plan is to extubate the patient successfully 12/20/2019, patient seen and evaluated examined during the rounds labs reviewed medications reviewed care plan discussed with the staff at length also with Dr. Quan findings of ENT recommendations reviewed as well patient has been switched to clindamycin, been setting has been stable able to give decrease oxygen to 40% and PEEP down to 5 patient remains on 75 mics of propofol today she is complaining of some pain in the mouth and throat area she has been on Dilaudid 1 mg every 4 will try fentanyl to pain relief, will start checking the leak test around the ET tube also initiate CPAP and pressure support trial, cultures are growing anaerobes, patient remains on TPN, also getting dexamethasone for airway inflammation to cut down the swelling has been gently diuresed as well 12/18/2019, patient seen and evaluated examined during the rounds labs reviewed medications reviewed care plan discussed with the staff at length, patient remains on the PEEP of 8 and FiO2 of 60% we'll recommend to lower down the PEEP as well as FiO2 in next 24 hours, the computed tomography scan of the neck has been reviewed in fact increased swelling has been noted, patient remains on pr opofol, comfortable she is bradycardic but with stable hemodynamics continue supportive care continue antibiotics, excessive secretions oral antral the G- tube has been noted, chest x-ray revealed left lower lobe pneumonia as well as effusion, patient remains on IV fluid along with TPN would recommend to DC the IV fluids continue Lasix 20 mg daily 12/17/2019, patient seen eval examined during the rounds labs reviewed medications reviewed care plan discussed with the staff at length will continue the vent setting continue titrated oxygen down, once FiO2 is down to 40% with diffuse the PEEP to 5 plan is to keep on ventilator for another at least 48-72 hours patient is due for follow-up computed tomography scan of the neck and right submandibular area, remains on broad-spectrum antibiotics status post PICC line TPN has been started, patient is stable at 50 mics of propofol awake and comfortable in no distress is present she remains bradycardic but with stable hemodynamics, patient is status post postoperative day #2 of exploration and incision and drainage of abscess on the neck and jaw region on the right side for details please refer to operative note, output through the drains has been reviewed 12/16/2019, patient seen eval examined during the rounds labs reviewed medications reviewed care plan discussed with the staff at length, a shunt is postop day #1 of the abscess tooth extraction, right submandibular abscess with abscesses involving pharyngeal buccaland history teacher space along with tonsillarpatient underwent extraction of tooth followed by incision and drainage of the soft tissue area around the submandible right pharyngealand right history teacher space, for details look at the operative report, patient has extensive swelling, had hard time in being intubated, O G-tube has not been inserted, patient has a #6-Kisw[place]ili endotracheal tube, she is awake and comfortable on propofol drip hemodynamic status stable bradycardic in rate of 14 is for the stable blood pressure and not on vasopressors remains on IV Unasyn, culture results and reports are pending, patient is high risk for rapid weaning and extubation will keep it intubated for another 72-96 hours, we'll start feeding through the PICC line which will be obtained INR has been consulted dietitian has been consulted, FiO2 have been decreased down to 60% BP remains 8, once FiO2 is 30-40% and will decrease the PEEP to 5 continue other vent setting patient does have slight respiratory alkalosis, with hypokalemia which is replaced protocol, white cell count is decreased to 12.4, This is a 54-year-old female with extensive history of smoking and nicotine abuse has a baseline COPD, patient also has a history of type 2 diabetes mellitus with history of hypertension and hypertensive cardiovascular disease has been on Coumadin as well with history of chronic persistent asthma hypoth yroidism came into the hospital about 2-3 day history of increased swelling on the right face and mandibular area patient noted to be short of breath and hypoxia I was asked to evaluate the patient further and arterial blood gas was performed revealed metabolic and respiratory alkalosis along with hypoxia patient has been recommended to be placed on airflow patient's computed tomography scan is positive for large mandibular abscess patient is now being transferred to the ICU oral surgery on consult patient likely will undergo surgery later on today care plan discussed with infectious disease as well Objective - Vital Signs Vital signs: Vital Signs Temp 98.5 F 12/23/19 05:49 Pulse 55 L 12/23/19 12:09 Resp 16 12/23/19 03:17 BP 145/80 12/23/19 05:49 Pulse Ox 92 L 12/23/19 05:49 Intake & Output 12/22/19 12/23/19 12/23/19 18:59 06:59 18:59 Intake Total 1155 540 Output Total 0961 415 2986 Balance -800 -810 -460 Weight 87 kg Intake: IV 1155 Mvi, Adult No.4 with Vit 30 K 10 ml Trace (Conc-1Ml/ Dose) 1 ml Parenteral Electrolytes 20 ml Potassium Acetate 40 meq In Amino Acid 4.25%-D10w 1,000 ml @ 30 mls/hr IV . Q24H [facility] Rx#:[id number] Potassium Chloride 10 meq 200 In Water For Injection 1 100ml.bag @ 100 mls/hr IVPB Q1H [facility] Rx#: [id number] Sodium Chloride 0.9% 1, 675 000 ml @ 75 mls/hr IV . [id number] [facility] Rx#:[id number] cefTRIAXone 2 gm In 50 Sodium Chloride 0.9% 50 ml @ 100 mls/hr IVPB Q24H [facility] Rx#:[id number]-NS PMX 500 200 mg In Saline 1 100ml.bag @ 100 mls/hr IVPB Q8HR [facility] Rx#:[id number] Oral 540 Output: Urine 9154 [id number] [id number] Other: Voiding Method Indwelling Catheter Indwelling Catheter # Voids 1 1 # Bowel Movements 1 - Exam - Constitutional Constitutional Comment(s): On 5 L nasal cannula oxygen is 92% - Constitutional General appearance: average body habitus, disheveled, mild distress - EENT Limited oral visibility is present due to swelling of the face and abscess in right mandibular region Eyes: PERRLA ENT: pharyngeal erythema, tonsillar swelling Ears: bilateral: normal - Respiratory Respiratory: bilateral: diminished, negative: dullness, rales, rhonchi, wheezing, prolonged expiration, prolonged inspiration - Cardiovascular Rhythm: regular Heart sounds: normal: S1, S2 - Gastrointestinal General gastrointestinal: normal bowel sounds - Integumentary Integumentary: normal turgor - Neurologic Neurologic: CNII-XII intact - Musculoskeletal Musculoskeletal: gait normal, generalized weakness, strength equal bilaterally - Psychiatric Psychiatric: Awake and alert calm and comfortable - Labs CBC & Chem 7: 12/23/19 05:02 12/23/19 05:02 Labs: Abnormal Lab Results - Last 24 Hours (Table) 12/22/19 12/22/19 12/23/19 Range/Units 18:11 21:52 05:02 WBC (3.8-10.6) k/uL Hgb (11.4-16.0) gm/dL RDW (11.5-15.5) % Neutrophils # (1.3-7.7) k/uL Potassium 2.8 L (3.5-5.1) mmol/L BUN 18 H (7-17) mg/dL Glucose 110 H (74-99) mg/dL POC Glucose (mg/dL) 231 H 103 H (75-99) mg/dL 12/23/19 12/23/19 Range/Units 05:02 11:58 WBC 14.0 H (3.8-10.6) k/uL Hgb 11.1 L (11.4-16.0) gm/dL RDW 17.0 H (11.5-15.5) % Neutrophils # 11.1 H (1.3-7.7) k/uL Potassium (3.5-5.1) mmol/L BUN (7-17) mg/dL Glucose (74-99) mg/dL POC Glucose (mg/dL) 105 H (75-99) mg/dL Assessment and Plan Assessment: Large mandibular abscesses on the right side due to infected tooth with abscess Compromised upper airway, swelling however is continued to improve, patient is doing well on supplemental oxygen Severe sepsis related to that Acute hypoxic respiratory failure multifactorial processes including sepsis due to mandibular abscess and Baseline COPD, successfully extubated Small bilateral pleural effusion Basilar tactile atelectasis possible pneumonia Severe hypokalemia Metabolic and respiratory alkalosis due to hyperventilation and hypokalemia Morbid obesity Plan: Follow-up on culture report Successfully remain extubated on 5 L nasal cannula Breathing treatments Broad-spectrum Antibiotics with anaerobic coverage ID and oral surgery consult following the patient, along with ENT Replace potassium as per protocol PICC line TPN can be tapered and DC'd DVT prophylaxis Peptic ulcer disease prophylaxis Gentle diuresis Further recommendations pending plan of care as per clinical response of the patient Time with Patient: Greater than 30
[2019-12-23] MEDS: POTASSIUM CHLORIDE ER 20 MEQ TAB.ER PO SCH ×3 (16:07→18:12)
[2019-12-23 17:01] LABS: Glucose,Whole Blood 104 mg/dL (75-99)
[2019-12-23] MEDS: fentaNYL (PF) 50 MCG/ML 2 ML AMP IVP PRN (19:21)
[2019-12-23 20:04] LABS: Glucose,Whole Blood 111 mg/dL (75-99)
[2019-12-23 23:05] LABS: Glucose,Whole Blood 104 mg/dL (75-99)
[2019-12-24] MEDS: metroNIDAZOLE-NS PMX 500 MG in SALINE 1 100ML.BAG IVPB SCH ×4 (00:05→23:08)
[2019-12-24] MEDS: HEPARIN SODIUM,PORCINE 5,000 UNIT/ML 1 ML VIAL SQ SCH ×4 (00:08→23:08)
[2019-12-24] MEDS: FUROSEMIDE 10 MG/ML 4 ML VIAL IV SCH ×2 (00:08→08:27)
[2019-12-24] MEDS: LEVOTHYROXINE 125 MCG TAB PO SCH (05:44)
--- NOTE | 2019-12-24 06:38 | PN ---
PROGRESS NOTE SUBJECTIVE: A 54-year-old white female with mandibular abscess. Her swelling in her face was greatly improved. She remains on IV antibiotics. Diet will be advanced. CARDIOVASCULAR: S1, S2. LUNGS: Clear. GI: Soft. HEMATOLOGY: Negative Homans. PSYCH: Fair mood and affect. ASSESSMENT: 1. Mandibular abscess. 2. Status post acute hypoxemic respiratory failure with ventilation care. Continue on IV antibiotics. Follow up in next 24 to 48 hours. MMODL / IJN: [id number] /
[2019-12-24 07:04] LABS: Glucose,Whole Blood 112 mg/dL (75-99)
[2019-12-24 07:23] LABS: African American GFR (CKD) >90 (>60 ml/min/1.73 sqM); Anion Gap 6 mmol/L; Blood Urea Nitrogen 16 mg/dL (7-17); Calcium 8.4 mg/dL (8.4-10.2); Carbon Dioxide 28 mmol/L (22-30); Chloride 105 mmol/L (98-107); Glucose 97 mg/dL (74-99); Non-African American GFR(CKD) 86 (>60 ml/min/1.73 sqM); Potassium 3.3 mmol/L (3.5-5.1); Sodium 139 mmol/L (137-145)
[2019-12-24] MEDS: INSULIN ASPART (NovoLOG) 100 UNIT/ML VIAL SQ SCH ×4 (08:25→20:59)
[2019-12-24] MEDS: MONTELUKAST 10 MG TAB PO SCH (08:26)
[2019-12-24] MEDS: DONEPEZIL 5 MG TAB PO SCH (08:26)
[2019-12-24] MEDS: LURASIDONE 80 MG TAB PO SCH (08:26)
[2019-12-24] MEDS: DULoxetine HCL 60 MG CAPSULE.DR PO SCH ×2 (08:27→20:13)
[2019-12-24] MEDS: clonazePAM 1 MG TAB PO SCH ×2 (08:27→20:14)
[2019-12-24] MEDS: PANTOPRAZOLE 40 MG/10 ML VIAL IV SCH (08:27)
[2019-12-24] MEDS: PREGABALIN 75 MG CAP PO SCH ×2 (08:27→20:13)
[2019-12-24] MEDS: IPRATROPIUM-ALBUTEROL 3 ML NEB INHALATION SCH ×4 (09:39→22:14)
--- NOTE | 2019-12-24 10:40 | P.PN ---
Subjective Progress Note Date: 12/24/19 Principal diagnosis: arge mandibular abscesses on the right side Severe sepsis related to that Acute hypoxic respiratory failure multifactorial processes including sepsis due to mandibular abscess and Baseline COPD Severe hypokalemia Metabolic and respiratory alkalosis due to hyperventilation and hypokalemia Morbid obesity Anticoagulated On Coumadin 12/24/2019, patient seen eval is being evaluated and examined during rounds, patient is breathing much better FiO2 has been down to 3 L now she is ambulating in the room, patient remains on broad-spectrum antibiotics denies any cough or sputum production last chest x-ray performed 12/21/2019 reviewed again basal atelectasis and minimal effusions seen, labs reviewed potassium is low being replaced, we will decrease the dose of Lasix as well change it to by mouth 12/23/2019, patient seen eval examined during the rounds labs reviewed medications reviewed care plan discussed, patient swelling has improved significantly remains afebrile pain has improved, on 5 L nasal cannula oxygen saturation 92%, 12/22/2019, patient seen eval examined during the rounds labs reviewed patient remains successfully extubated, remains on 2 L sitting upright in the bed minimal pain is present did require as dictated fentanyl, some episodes of anxiety and a prehension was noted last night but is stable now, patient is on nasal cannula swelling in the face have improved significantly, viewed, patient to be kept on liquid diet for now can be moved out of the ICU to the MedSurg unit continue antibiotics continue pain medications 12/21/2019 patient seen eval examined during the rounds labs reviewed medications reviewed, care plan discussed with the staff at length, patient did critical care time spent 35 minutes, air leak test is performed positive air leak was noted, patient was placed on CPAP of 5 and 15 off pressure support him a tidal volume were all observe closely depending upon she appears to be doing well pressure support and gradually wean down patient was observed for the CPAP and pressure support of 5 and 5 for almost 15-20 minutes, good ventilation was seen patient was given 40 mg of IV Lasix at the same time, good urine output has been noted plan is to extubate the patient successfully 12/20/2019, patient seen and evaluated examined during the rounds labs reviewed medications reviewed care plan discussed with the staff at length also with Dr. Quan findings of ENT recommendations reviewed as well patient has been switched to clindamycin, been setting has been stable able to give decrease ox ygen to 40% and PEEP down to 5 patient remains on 75 mics of propofol today she is complaining of some pain in the mouth and throat area she has been on Dilaudid 1 mg every 4 will try fentanyl to pain relief, will start checking the leak test around the ET tube also initiate CPAP and pressure support trial, cultures are growing anaerobes, patient remains on TPN, also getting dexamethasone for airway inflammation to cut down the swelling has been gently diuresed as well 12/18/2019, patient seen and evaluated examined during the rounds labs reviewed medications reviewed care plan discussed with the staff at length, patient remains on the PEEP of 8 and FiO2 of 60% we'll recommend to lower down the PEEP as well as FiO2 in next 24 hours, the computed tomography scan of the neck has been reviewed in fact increased swelling has been noted, patient remains on propofol, comfortable she is bradycardic but with stable hemodynamics continue supportive care continue antibiotics, excessive secretions oral antral the G- tube has been noted, chest x-ray revealed left lower lobe pneumonia as well as effusion, patient remains on IV fluid along with TPN would recommend to DC the IV fluids continue Lasix 20 mg daily 12/17/2019, patient seen eval examined during the rounds labs reviewed medications reviewed care plan discussed with the staff at length will continue the vent setting continue titrated oxygen down, once FiO2 is down to 40% with diffuse the PEEP to 5 plan is to keep on ventilator for another at least 48-72 hours patient is due for follow-up computed tomography scan of the neck and right submandibular area, remains on broad-spectrum antibiotics status post PICC line TPN has been started, patient is stable at 50 mics of propofol awake and comfortable in no distress is present she remains bradycardic but with stable hemodynamics, patient is status post postoperative day #2 of exploration and incision and drainage of abscess on the neck and jaw region on the right side for details please refer to operative note, output through the drains has been reviewed 12/16/2019, patient seen eval examined during the rounds labs reviewed medications reviewed care plan discussed with the staff at length, a shunt is postop day #1 of the abscess tooth extraction, right submandibular abscess with abscesses involving pharyngeal buccaland 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 along with tonsillarpatient underwent extraction of tooth followed by incision and drainage of the soft tissue area around the submandible right pharyngealand right 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, for details look at the operative report, patient has extensive swelling, had hard time in being intubated, O G-tube has not been inserted, patient has a #6-Yi endotracheal tube, she is awake and comfortable on propofol drip hemodynamic status stable bradycardic in rate of 14 is for the stable blood pressure and not on vasopressors remains on IV Unasyn, culture results and reports are pending, patient is high risk for rapid weaning and extubation will keep it intubated for another 72-96 hours, we'll start feeding through the PICC line which will be obtained INR has been consulted dietitian has been consulted, FiO2 have been decreased down to 60% BP remains 8, once FiO2 is 30-40% and will decrease the PEEP to 5 continue other vent setting patient does have slight respiratory alkalosis, with hypokalemia which is replaced protocol, white cell count is decreased to 12.4, This is a 54-year-old female with extensive history of smoking and nicotine abuse has a baseline COPD, patient also has a history of type 2 diabetes mellitus with history of hypertension and hypertensive cardiovascular disease has been on Coumadin as well with history of chronic persistent asthma hypothyroidism came into the hospital about 2-3 day history of increased swelling on the right face and mandibular area patient noted to be short of breath and hypoxia I was asked to evaluate the patient further and arterial blood gas was performed revealed metabolic and respiratory alkalosis along with hypoxia patient has been recommended to be placed on airflow patient's computed tomography scan is positive for large mandibular abscess patient is now being transferred to the ICU oral surgery on consult patient likely will undergo s urgery later on today care plan discussed with infectious disease as well Objective - Vital Signs Vital signs: Vital Signs Temp 98.0 F 12/24/19 07:00 Pulse 60 12/24/19 07:00 Resp 16 12/24/19 07:00 BP 144/79 12/24/19 07:00 Pulse Ox 90 L 12/24/19 07:00 Intake & Output 12/23/19 12/24/19 12/24/19 18:59 06:59 18:59 Intake Total 740 Output Total 1870 325 Balance -1130 -325 Intake: Oral 740 Output: Urine 1870 325 2-way Urethral 450 Other: # Voids 1 1 # Bowel Movements 1 - Exam - Constitutional Constitutional Comment(s): On 5 L nasal cannula oxygen is 92% - Constitutional General appearance: average body habitus, disheveled, mild distress - EENT Limited oral visibility is present due to swelling of the face and abscess in right mandibular region Eyes: PERRLA ENT: pharyngeal erythema, tonsillar swelling Ears: bilateral: normal - Respiratory Respiratory: bilateral: diminished, negative: dullness, rales, rhonchi, wh eezing, prolonged expiration, prolonged inspiration - Cardiovascular Rhythm: regular Heart sounds: normal: S1, S2 - Gastrointestinal General gastrointestinal: normal bowel sounds - Integumentary Integumentary: normal turgor - Neurologic Neurologic: CNII-XII intact - Musculoskeletal Musculoskeletal: gait normal, generalized weakness, strength equal bilaterally - Psychiatric Psychiatric: Awake and alert calm and comfortable - Labs CBC & Chem 7: 12/23/19 05:02 12/24/19 05:59 Labs: Abnormal Lab Results - Last 24 Hours (Table) 12/23/19 12/23/19 12/23/19 Range/Units 11:58 17:00 20:03 Potassium (3.5-5.1) mmol/L POC Glucose (mg/dL) 105 H 104 H 111 H (75-99) mg/dL 12/23/19 12/24/19 12/24/19 Range/Units 22:59 05:59 07:03 Potassium 3.3 L (3.5-5.1) mmol/L POC Glucose (mg/dL) 104 H 112 H (75-99) mg/dL Assessment and Plan Assessment: Large mandibular abscesses on the right side due to infected tooth with abscess Compromised upper airway, swelling however is continued to improve, patient is doing well on supplemental oxygen Severe sepsis related to that Acute hypoxic respiratory failure multifactorial processes including sepsis due to mandibular abscess and Baseline COPD, successfully extubated Small bilateral pleural effusion Basilar tactile atelectasis possible pneumonia Severe hypokalemia Metabolic and respiratory alkalosis due to hyperventilation and hypokalemia Morbid obesity Plan: Follow-up on culture report Successfully remain extubated on down to 5 L nasal cannula Breathing treatments Broad-spectrum Antibiotics with anaerobic coverage ID and oral surgery consult following the patient, along with ENT Replace potassium as per protocol PICC line TPN can be tapered and DC'd DVT prophylaxis Peptic ulcer disease prophylaxis Gentle diuresis, by mouth Lasix Further recommendations pending plan of care as per clinical response of the patient Time with Patient: Greater than 30
[2019-12-24 11:41] LABS: Glucose,Whole Blood 99 mg/dL (75-99)
[2019-12-24] MEDS ORDERED: Potassium Replacement Protocol 1 EACH MISC MISCELLANE PRN ×2 (11:43→16:47)
[2019-12-24] MEDS: FUROSEMIDE 40 MG TAB PO SCH (12:25)
[2019-12-24] MEDS: POTASSIUM CHLORIDE ER 20 MEQ TAB.ER PO SCH ×4 (12:27→18:17)
--- NOTE | 2019-12-24 12:34 | P.PN ---
Subjective Progress Note Date: 12/24/19 This is a 54-year-old female with submandibular abscesses, in the ICU, on mechanical ventilation. Maintained on Flagyl and Rocephin IV. Vital signs stable. Chest x-ray reporting minimal effusions, atelectasis, possible pneumonia. Extubation in progress as per nuclear operations specialist. Blood sugars controlled. Afebrile, normal WBC. 12/22/2019 maintained on antibiotics of Rocephin, Flagyl as per ID. Throat cul ture reporting rare anaerobic gram-negative bacilli. afebrile, WBC increased to 12.9. tolerating full liquid diet with no nausea or vomiting, been advanced to ground. Facial edema improving Maintaining O2 sats in the 90s on 5 L nasal cannula. Pain currently controlled. Telemetry sinus rhythm. 12/24/2019 diuresed well on Lasix IV push with 24-hour I&O reflecting a negative fluid balance. Creatinine normal. Potassium 3.3, currently being supplemented .breathing continues to improve, maintaining O2 sats in the low 90s on 3 L nasal cannula. Diet intake fair, no nausea or vomiting. Denies chest pain, palpitations or increased shortness of breath. Afebrile. Objective - Vital Signs Vital signs: Vital Signs Temp 98.0 F 12/24/19 07:00 Pulse 60 12/24/19 07:00 Resp 16 12/24/19 07:00 BP 144/79 12/24/19 07:00 Pulse Ox 90 L 12/24/19 07:00 Intake & Output 12/23/19 12/24/19 12/24/19 18:59 06:59 18:59 Intake Total 740 Output Total 1870 325 Balance -1130 -325 Intake: Oral 740 Output: Urine 1870 325 2-way Urethral 450 Other: # Voids 1 1 # Bowel Movements 1 - Exam - Exam - Constitutional Constitutional Comment(s): Intubated on propofol - Constitutional General appearance: Sitting up in bed, no acute distress - EENT Improving swelling of the face. Eyes: PERRLA - Respiratory Respiratory: bilateral: diminished, negative: dullness, rales, rhonchi, wheezing, prolonged expiration, prolonged inspiration - Cardiovascular Rhythm: regular Heart sounds: normal: S1, S2 - Gastrointestinal General gastrointestinal: normal bowel sounds - Integumentary Integumentary: normal turgor - Neurologic Neurologic: CNII-XII intact - Musculoskeletal Musculoskeletal: gait normal, generalized weakness, strength equal bilaterally - Psychiatric Psychiatric: Awake and alert calm and comfortable - Labs CBC & Chem 7: 12/23/19 05:02 12/24/19 05:59 Labs: Abnormal Lab Results - Last 24 Hours (Table) 12/23/19 12/23/19 12/23/19 Range/Units 17:00 20:03 22:59 Potassium (3.5-5.1) mmol/L POC Glucose (mg/dL) 104 H 111 H 104 H (75-99) mg/dL 12/24/19 12/24/19 Range/Units 05:59 07:03 Potassium 3.3 L (3.5-5.1) mmol/L POC Glucose (mg/dL) 112 H (75-99) mg/dL Assessment and Plan Assessment: Submandibular abscesses on the right lower molar with parapharyngeal extension, culture reporting rare anaerobic gram-negative bacilli. Sepsis, severe secondary to the above Possible bibasilar pneumonia Acute hypoxic respiratory failure, multifactorial secondary to sepsis, infection, chronic COPD, status post ventilator dependent Obesity, BMI 32 Status post PICC line placement Hypokalemia Plan: Continue on current medication regime ,monitoring and symptomatic treatment. Lasix has been converted to oral. Receiving potassium replacement, recheck potassium later this afternoon. Close monitoring of renal function, Lotrel lites with repeat labs ordered for a.m. continue on antibiotics. Patient continues to decline subacute rehab. The impression and plan of care has been dictated as directed. : I performed a history and examination of this patient, discussed the same with the dictator. I agree with the dictator's note ,documented as a scribe. Any additional findings or plans will be noted.
[2019-12-24 17:17] LABS: Glucose,Whole Blood 132 mg/dL (75-99)
[2019-12-24] MEDS: ACETAMINOPHEN TAB 325 MG TAB PO PRN (19:26)
[2019-12-24] MEDS: fentaNYL (PF) 50 MCG/ML 2 ML AMP IVP PRN (19:27)
[2019-12-24 20:25] LABS: Glucose,Whole Blood 109 mg/dL (75-99)
--- NOTE | 2019-12-24 22:55 | PN ---
PROGRESS NOTE DATE OF SERVICE: 12/24/2019 REASON FOR FOLLOWUP: Right lower jaw abscess. INTERVAL HISTORY: The patient is currently afebrile. The patient has been breathing comfortably. The patient's pain to the right lower jaw is currently controlled. No chest pain, shortness of breath. No cough or abdominal pain. No diarrhea. PHYSICAL EXAMINATION: Blood pressure 128/73 with a pulse of 54, temperature 98.7, she is 98% on room air. General description is a middle-aged female lying in bed in no distress. Respiratory system: Unlabored breathing. Clear to auscultation anteriorly. Heart S1, S2 regular rate and rhythm. Abdomen soft. No tenderness. LABS: No new labs have been obtained today. DIAGNOSTIC IMPRESSION AND PLAN: Patient with right lower jaw abscess status post drainage. The patient's culture has been positive for anaerobic gram negative. The patient has been covered with Rocephin and Flagyl. Repeat CBC tomorrow number and monitor clinical course closely. Continue supportive care. MMODL / IJN: [id number] /
[2019-12-25 06:59] LABS: Glucose,Whole Blood 108 mg/dL (75-99)
[2019-12-25 07:03] LABS: Anisocytosis Slight; Basophils # (A) 0.1 k/uL (0-0.2); Basophils % (A) 1 %; Eosinophils # (A) 0.1 k/uL (0-0.7); Eosinophils % (A) 1 %; HCT 37.7 % (34.0-46.0); HGB 11.7 gm/dL (11.4-16.0); Hypochromasia Slight; Lymphocytes # (A) 2.3 k/uL (1.0-4.8); Lymphocytes % (A) 25 %; MCHC 31.1 g/dL (31.0-37.0); MCV 83.8 fL (80.0-100.0); Mean Platelet Volume 9.8; Monocytes # (A) 0.6 k/uL (0-1.0); Monocytes % (A) 6 %; Neutrophils # (A) 6.1 k/uL (1.3-7.7); Neutrophils % (A) 65 %; Platelet Count 333 k/uL (150-450); WBC 9.5 k/uL (3.8-10.6)
[2019-12-25] MEDS: LEVOTHYROXINE 125 MCG TAB PO SCH (07:12)
[2019-12-25] MEDS: INSULIN ASPART (NovoLOG) 100 UNIT/ML VIAL SQ SCH ×4 (07:13→21:02)
[2019-12-25 07:19] LABS: African American GFR (CKD) >90 (>60 ml/min/1.73 sqM); Anion Gap 10 mmol/L; Blood Urea Nitrogen 17 mg/dL (7-17); Calcium 8.7 mg/dL (8.4-10.2); Carbon Dioxide 25 mmol/L (22-30); Chloride 105 mmol/L (98-107); Glucose 99 mg/dL (74-99); Non-African American GFR(CKD) 87 (>60 ml/min/1.73 sqM); Potassium 3.9 mmol/L (3.5-5.1); Sodium 140 mmol/L (137-145)
[2019-12-25 08:16] LABS: C Reactive Protein 16.4 mg/L (<10.0)
[2019-12-25] MEDS: IPRATROPIUM-ALBUTEROL 3 ML NEB INHALATION SCH ×4 (09:13→22:08)
[2019-12-25] MEDS: PREGABALIN 75 MG CAP PO SCH ×2 (09:22→20:07)
[2019-12-25] MEDS: MONTELUKAST 10 MG TAB PO SCH (09:22)
[2019-12-25] MEDS: FUROSEMIDE 40 MG TAB PO SCH (09:22)
[2019-12-25] MEDS: DULoxetine HCL 60 MG CAPSULE.DR PO SCH ×2 (09:22→20:07)
[2019-12-25] MEDS: PANTOPRAZOLE 40 MG/10 ML VIAL IV SCH (09:22)
[2019-12-25] MEDS: HEPARIN SODIUM,PORCINE 5,000 UNIT/ML 1 ML VIAL SQ SCH ×2 (09:22→17:14)
[2019-12-25] MEDS: DONEPEZIL 5 MG TAB PO SCH (09:23)
[2019-12-25] MEDS: LURASIDONE 80 MG TAB PO SCH (09:23)
[2019-12-25] MEDS: metroNIDAZOLE-NS PMX 500 MG in SALINE 1 100ML.BAG IVPB SCH ×2 (09:29→15:29)
[2019-12-25] MEDS: clonazePAM 1 MG TAB PO SCH ×2 (09:34→20:07)
[2019-12-25 11:36] LABS: Glucose,Whole Blood 90 mg/dL (75-99)
[2019-12-25] MEDS ORDERED: AMOXIC-POT CLAV 875-125MG 1 EACH TAB PO SCH (12:15)
--- NOTE | 2019-12-25 12:42 | DS ---
DISCHARGE SUMMARY ADDENDUM TO DISCHARGE SUMMARY: ADDITIONAL DISCHARGE DIAGNOSIS: Septic encephalopathy. MMODL / IJN: [id number] /
--- NOTE | 2019-12-25 16:19 | PN ---
PROGRESS NOTE DATE OF SERVICE: 12/25/2019 REASON FOR FOLLOWUP: Right lower jaw abscess. INTERVAL HISTORY: The patient is currently afebrile. The patient has been breathing comfortably. Pain to the right jaw has improved. The patient denies having any chest pain or shortness of breath or cough. No nausea, no vomiting. No abdominal pain or diarrhea. PHYSICAL EXAMINATION: On examination, her blood pressure is 153/79 with a pulse of 75, temperature 97.3. She is 92% on 2 L nasal cannula. General description is a middle-aged female up in the room in no distress. HEENT EXAMINATION: Right lower jaw currently with no swelling, no redness. LUNGS: Unlabored breathing. Clear to auscultation anteriorly. HEART: S1, S2. Regular rate and rhythm. ABDOMEN: Soft. No tenderness. LABS: Hemoglobin is 11.7, white count 9.5. BUN of 17, creatinine 0.78. DIAGNOSTIC IMPRESSION AND PLAN: Patient with right lower jaw abscess, possible osteomyelitis, status post drainage. Culture with anaerobic Gram-negative. Patient is currently covered with Rocephin 2 grams daily and Flagyl; to continue for at least 4 weeks in view of the extensive infection and monitor clinical course closely. Continue with supportive care. MMODL / IJN: [id number] /
[2019-12-25 16:43] LABS: Glucose,Whole Blood 127 mg/dL (75-99)
--- NOTE | 2019-12-25 17:01 | PN ---
PROGRESS NOTE DATE OF SERVICE: 12/25/2019 This patient has been hemodynamically stable. She has no respiratory distress. On physical examination, her vitals are stable. She is afebrile. Chest is clear. Cardiovascular system is in S1, S2. Abdomen is soft. There is no edema. Medications and labs were reviewed. IMPRESSION AT THIS TIME: 1. Mandibular abscess. 2. Upper airway obstruction, which seems completely relieved at this time. Continue current medications. I agree with possible discharge planning with close outpatient followup. JACK / YOLANDA: [id number] /
[2019-12-25] MEDS: ACETAMINOPHEN TAB 325 MG TAB PO PRN (18:19)
[2019-12-25 21:02] LABS: Glucose,Whole Blood 114 mg/dL (75-99)
[2019-12-25] MEDS: LORazepam 2 MG/ML INJ IV PRN (21:18)
--- NOTE | 2019-12-25 23:16 | PN ---
PROGRESS NOTE 54-year-old white female with acute mandibular abscess. She was going to be discharged home today, but Dr. Ibarra recommends IV Rocephin for 2 weeks. Cardiovascular: S1, S2. Lungs clear. GI soft. She is swallowing regular food. Her cheek is decreasing in swelling. PLAN: Continue with uptake line for IV Rocephin for [address] Ibarra. Otherwise, she can go home. Her oxygenation is mid 90s on room air. MMODL / IJN: [id number] /
[2019-12-26] MEDS: metroNIDAZOLE-NS PMX 500 MG in SALINE 1 100ML.BAG IVPB SCH ×2 (00:08→09:18)
[2019-12-26] MEDS: HEPARIN SODIUM,PORCINE 5,000 UNIT/ML 1 ML VIAL SQ SCH ×4 (00:21→23:50)
[2019-12-26] MEDS: LEVOTHYROXINE 125 MCG TAB PO SCH (05:50)
[2019-12-26 07:14] LABS: Glucose,Whole Blood 112 mg/dL (75-99)
[2019-12-26] MEDS: INSULIN ASPART (NovoLOG) 100 UNIT/ML VIAL SQ SCH ×4 (07:42→21:27)
[2019-12-26] MEDS: IPRATROPIUM-ALBUTEROL 3 ML NEB INHALATION SCH ×4 (09:11→18:55)
[2019-12-26] MEDS: clonazePAM 1 MG TAB PO SCH ×2 (09:17→21:26)
[2019-12-26] MEDS: DULoxetine HCL 60 MG CAPSULE.DR PO SCH ×2 (09:17→21:26)
[2019-12-26] MEDS: PREGABALIN 75 MG CAP PO SCH ×2 (09:17→21:26)
[2019-12-26] MEDS: FUROSEMIDE 40 MG TAB PO SCH (09:17)
[2019-12-26] MEDS: MONTELUKAST 10 MG TAB PO SCH (09:17)
[2019-12-26] MEDS: PANTOPRAZOLE 40 MG/10 ML VIAL IV SCH (09:17)
[2019-12-26] MEDS: DONEPEZIL 5 MG TAB PO SCH (09:18)
[2019-12-26] MEDS: LURASIDONE 80 MG TAB PO SCH (09:18)
[2019-12-26] MEDS: ACETAMINOPHEN TAB 325 MG TAB PO PRN ×3 (09:27→18:39)
[2019-12-26 11:32] LABS: Glucose,Whole Blood 109 mg/dL (75-99)
--- NOTE | 2019-12-26 11:55 | PN ---
PROGRESS NOTE DATE OF SERVICE: 12/26/2019 The patient was seen again on December2019. She has been hemodynamically stable. She does not complain of any shortness of breath. On physical examination, vital signs stable. She is afebrile. Her chest is clear. Cardiovascular system reveals an S1, S2. Abdomen is soft. There is no pedal edema. IMPRESSION: At this time is: Mandibular abscess for which she has received IV antibiotics and is due for a new PICC line and subsequent IV antibiotics as an outpatient. From a pulmonary perspective, she is doing fairly well. Continue to increase activity level. Prognosis is fair. MMODL / IJN: [id number] /
[2019-12-26 13:59] LABS: T4, Free (Free Thyroxine) 0.65 ng/dL (0.78-2.19)
[2019-12-26] MEDS: metroNIDAZOLE 500 MG TAB PO SCH ×2 (15:31→23:50)
[2019-12-26 16:35] LABS: Glucose,Whole Blood 111 mg/dL (75-99)
[2019-12-26 20:49] VITALS: RESP 12
[2019-12-26 21:20] LABS: Glucose,Whole Blood 150 mg/dL (75-99)
[2019-12-26] MEDS: LORazepam 2 MG/ML INJ IV PRN (21:26)
--- NOTE | 2019-12-27 00:04 | PN ---
PROGRESS NOTE DATE OF SERVICE: 12/26/2019 I am covering for Dr. Anderson. This 54-year-old woman with a past medical history of multiple medical problems admitted with right mandible osteomyelitis. The patient also had mandible abscess. PICC line has been recommended at this time. Blood sugar slightly elevated. White count is 9.5. The patient also had elevated TSH, low free T4, indicating hypothyroidism. is also elevated. PAST MEDICAL HISTORY: Reviewed. REVIEW OF SYMPTOMS: CARDIOVASCULAR: No angina or palpitations. RESPIRATORY: As mentioned earlier. GI: No nausea or vomiting. no dysuria. NERVOUS SYSTEM: No numbness or weakness. CURRENT MEDICATIONS: Reviewed and include: 1. Tylenol 650 q.6h p.r.n. 2. DuoNeb q.i.d. and p.r.n. 3. Rocephin 2 g IV daily. 4. Klonopin 2 mg p.o. q.h.s. and 1 mg q.a.m. 5. Aricept 5 mg p.o. daily. 6. Cymbalta 60 mg p.o. b.i.d. 7. Ventolin. 8. Lasix 40 mg subcu daily. 9. Haldol 2.5 mg b.i.d. 10.Synthroid. 11.Ativan. 12.Flagyl. 13.Narcan. 14.Singular. 15.Protonix. 16.Lyrica. 17.Doses are reviewed. PHYSICAL EXAM: Patient is alert, oriented x3. Pulse 78. Blood pressure 129/70, respiration 16, temperature 97.8, pulse ox 92% on room air. HEENT: Conjunctivae normal. Otherwise swelling and tenderness in the right mandible area present. Lymph nodes present. CARDIOVASCULAR: S1, S2. No S3, no S4. RESPIRATORY: Breath sounds diminished in the bases. A few scattered rhonchi. No crackles. ABDOMEN: Soft. Nontender. Legs are no edema. No swelling. CENTRAL NERVOUS SYSTEM: No focal deficits. LAB STUDIES: WBC 9.2, hemoglobin 11.9. Accu-Cheks noted. TSH is noted. ASSESSMENT: 1. Acute right mandibular lower gastrointestinal abscess with possible osteomyelitis on IV antibiotics. 2. For PICC line. 3. History of diabetes type 2. 4. Fibromyalgia. 5. Hypertension. 6. History of degenerative joint disease. 7. History of seizure disorder. 8. Hypothyroidism. 9. History of peripheral vascular disease. 11.Migraine. 12.Hemorrhoids. 13.Degenerative joint disease. 14.History of carpal tunnel syndrome. 15.History of uterine ablation. 16.Anxiety/bipolar depression/ panic disorder. 17.History of nicotine dependence continued ongoing. 18.Obesity with body mass index 31. 19.FULL CODE. RECOMMENDATIONS AND DISCUSSION: In this 54-year-old woman who presented with multiple complex medical issues, we will monitor the patient closely, continue the current medications, management and symptomatic treatment. I recommend IV antibiotics. PICC line. Otherwise, the patient is taking Synthroid 125 mcg p.o. daily, increased to 150 mcg. Otherwise, continue rest of medications. See orders for details. Further recommendations to follow. MMODL / IJN: [id number] / PADMINI
[2019-12-27] MEDS ORDERED: LEVOTHYROXINE 75 MCG TAB PO SCH (06:30)
[2019-12-27] MEDS: IPRATROPIUM-ALBUTEROL 3 ML NEB INHALATION SCH ×2 (07:20→11:39)
[2019-12-27] MEDS ORDERED: metFORMIN 500 MG TAB PO SCH (07:30)
[2019-12-27 07:37] LABS: Glucose,Whole Blood 104 mg/dL (75-99)
[2019-12-27] MEDS: INSULIN ASPART (NovoLOG) 100 UNIT/ML VIAL SQ SCH (07:37)
[2019-12-27] MEDS: HEPARIN SODIUM,PORCINE 5,000 UNIT/ML 1 ML VIAL SQ SCH (07:45)
[2019-12-27] MEDS: DULoxetine HCL 60 MG CAPSULE.DR PO SCH (07:45)
[2019-12-27] MEDS: PANTOPRAZOLE 40 MG/10 ML VIAL IV SCH (07:45)
[2019-12-27] MEDS: FUROSEMIDE 40 MG TAB PO SCH (07:46)
[2019-12-27] MEDS: metroNIDAZOLE 500 MG TAB PO SCH (07:46)
[2019-12-27] MEDS: MONTELUKAST 10 MG TAB PO SCH (07:46)
[2019-12-27] MEDS: PREGABALIN 75 MG CAP PO SCH (07:46)
[2019-12-27] MEDS: clonazePAM 1 MG TAB PO SCH (07:46)
[2019-12-27] MEDS: DONEPEZIL 5 MG TAB PO SCH (07:47)
[2019-12-27] MEDS: LURASIDONE 80 MG TAB PO SCH (07:47)
[2019-12-27] MEDS ORDERED: LIDOCAINE 1% INJ 10MG/ML (20 ML MDV) ONE (08:41)
[2019-12-27] MEDS ORDERED: amLODIPine 10 MG TAB PO SCH (09:00)
[2019-12-27] MEDS ORDERED: TOPIRAMATE 25 MG TAB PO SCH (09:00)
[2019-12-27] MEDS ORDERED: HYDROCHLOROTHIAZIDE 25 MG TAB PO SCH (09:00)
[2019-12-27] MEDS ORDERED: traMADol 50 MG TAB PO SCH (09:00)
[2019-12-27 09:05] VITALS: BP 148/82; PULSE 63; TEMP 98
[2019-12-27] MEDS ORDERED: LIDOCAINE 1% INJ 10MG/ML (20 ML MDV) SQ ONE (09:05)
[2019-12-27 09:08] LABS: Anisocytosis Slight; Basophils # (A) 0.1 k/uL (0-0.2); Basophils % (A) 1 %; Eosinophils # (A) 0.1 k/uL (0-0.7); Eosinophils % (A) 1 %; HCT 35.7 % (34.0-46.0); HGB 11.3 gm/dL (11.4-16.0); Hypochromasia Slight; Lymphocytes # (A) 1.7 k/uL (1.0-4.8); Lymphocytes % (A) 24 %; MCH 26.6 pg (25.0-35.0); MCHC 31.7 g/dL (31.0-37.0); MCV 83.7 fL (80.0-100.0); Mean Platelet Volume 9.1; Monocytes # (A) 0.3 k/uL (0-1.0); Monocytes % (A) 4 %; Neutrophils # (A) 5.1 k/uL (1.3-7.7); Neutrophils % (A) 68 %; Platelet Count 345 k/uL (150-450); RBC 4.26 m/uL (3.80-5.40); RDW 18.3 % (11.5-15.5); WBC 7.4 k/uL (3.8-10.6)
[2019-12-27 09:34] LABS: African American GFR (CKD) >90 (>60 ml/min/1.73 sqM); Anion Gap 8 mmol/L; Blood Urea Nitrogen 14 mg/dL (7-17); Calcium 8.9 mg/dL (8.4-10.2); Carbon Dioxide 25 mmol/L (22-30); Chloride 105 mmol/L (98-107); Glucose 130 mg/dL (74-99); Non-African American GFR(CKD) >90 (>60 ml/min/1.73 sqM); Potassium 3.8 mmol/L (3.5-5.1); Sodium 138 mmol/L (137-145)
--- NOTE | 2019-12-27 09:48 | IR ---
PICC LINE PLACEMENT: HISTORY: Infection requiring long-term antibiotic therapy PROCEDURE: Ultrasound and fluoroscopic guidance of PICC line placement. COMPLICATIONS: None ANESTHESIA: 1. 1% Lidocaine locally. FINDINGS/TECHNIQUE: The procedure was explained to the patient. The risks, complications, benefits and alternatives were discussed and any questions were answered. Informed consent was obtained. The patient was placed supine on the fluoroscopic table and prepped and draped in the usual sterile fash ion. Utilizing a 21 gauge needle and sonographic and fluoroscopic guidance, access in the right bra chial vein was achieved and there is placement of a 0.018 guidewire. The vein is patent. A 4-F castrejon th was placed over the guidewire. The guidewire and dilator were removed and a 4-F. PICC line was pl aced through the sheath with the tip at the level of the SVC. The sheath was removed, the catheter w as flushed and sutured into position. The patient was stable throughout the procedure and remained s table upon discharge from the Department of Radiology. The vein puncture was patent under ultrasound. A parra scale image was obtained to document patency of the vein punctured. All elements of the maximal barrier technique were utilized. FLUOROSCOPY TIME: 0.2 minutes of fluoroscopy and one image submitted IMPRESSION: Successful PICC line placement under ultrasound and fluoroscopic guidance.
--- NOTE | 2019-12-27 10:39 | PN ---
PROGRESS NOTE DATE OF SERVICE: 12/26/2019 REASON FOR FOLLOWUP: Right lower jaw abscess and osteomyelitis. INTERVAL HISTORY: The patient is currently afebrile. The patient is breathing comfortably. Pain to the right lower jaw is currently controlled. Denies difficulty swallowing or breathing. No nausea, no vomiting. No abdominal pain. No diarrhea. PHYSICAL EXAMINATION: Blood pressure is 150/77 with a pulse of 57, temperature 98.4. General description is a middle-aged female up in the chair in no distress. Respiratory system: Unlabored breathing. Decreased breath sounds in the bases. No wheeze. Heart S1, S2. Regular rate and rhythm. Abdomen soft. No tenderness. LABS: No new labs have been obtained today. DIAGNOSTIC IMPRESSION AND PLAN: Patient with right lower jaw abscess and cellulitis. The patient at this point is covered with Rocephin and Flagyl. She will continue for another 4 weeks and close outpatient followup. Awaiting a PICC line placement tomorrow and antibiotic arrangement. Continue supportive care. MMODL / IJN: [id number] /
--- NOTE | 2019-12-27 14:00 | PN ---
PROGRESS NOTE DATE OF SERVICE: 12/27/2019 REASON FOR FOLLOWUP: Right lower jaw abscess. INTERVAL HISTORY: The patient is afebrile. She was seen on rounds this morning. The patient has been afebrile, right lower jaw pain and swelling has improved. No chest pain, shortness of breath or cough. No abdominal pain. No diarrhea. She did get another PICC line. PHYSICAL EXAMINATION: Blood pressure 148/82 with a pulse of 63, temperature of 98, she is 97% on room air. General description is a middle-aged female, up in the room in no distress. HEENT EXAMINATION: Right lower jaw with no swelling or redness. LUNGS: Unlabored breathing, clear to auscultation anteriorly. HEART: S1, S2. Regular rate and rhythm. ABDOMEN: Soft, no tenderness. LABS: Hemoglobin 11.1, white count of 7.4, BUN of 14, creatinine 0.74. DIAGNOSTIC IMPRESSION AND PLAN: Patient with right lower jaw abscess and osteo, status post drainage, culture has been anaerobic gram negative. The patient will finish therapy with Rocephin 2 g daily, Flagyl 500 q.8 hours for total of 4 weeks with weekly monitoring of CBC, BMP. Close outpatient followup. MMODL / IJN: [id number] /
--- NOTE | 2019-12-27 19:54 | DS ---
DISCHARGE SUMMARY DATE OF SERVICE: 12/27/2019 I am covering for Dr. Anderson. FINAL DIAGNOSES: 1. Acute right mandibular abscess with possible osteomyelitis on IV antibiotics. 2. Status post PICC line. 3. History of diabetes type 2. 4. Fibromyalgia. 5. Hypertension. 6. History of degenerative joint disease. 7. History of seizure disorder. 8. History of hypothyroidism. 9. History of peripheral vascular disease. 10.Migraine. 11.Hemorrhoids. 12.Degenerative joint disease. 13.History of carpal tunnel syndrome. 14.History of uterine ablation. 15.History of anxiety, bipolar depression, panic disorder. 16.History of nicotine dependence, continued ongoing. 17.Obesity with body mass index of 31. 18.FULL CODE. DISCHARGE DISPOSITION: The patient is being discharged in stable condition with guarded prognosis. HISTORY OF PRESENT ILLNESS: This 54-year-old woman with a past medical history of multiple medical problems was admitted with jaw swelling as well as right mandible abscess and osteomyelitis. Patient was started on broad-spectrum IV antibiotics, PICC line. The patient was seen by multiple consultants including Pulmonary and as well as Infectious Disease. Care was coordinated. CBC normalized. BMP shows sodium 130, potassium 3.8. The patient being discharged in stable condition with guarded prognosis. On exam, vitals are stable. Cardiovascular: S1, S2 normal. Abdomen soft. Nervous system: No focal deficits. Exam of the right jaw, minimal tenderness and swelling present. DISCHARGE ADVICE AND MEDICATIONS: 1. Diet is cardiac diet. 2. Activity limited until followup. 3. Follow up with Dr. Anderson in 2-3 days. 4. Follow up with Dr. Ibarra as recommended. 5. Home infusion. Home care as recommended. DISCHARGE MEDICATIONS: 1. Klonopin 2 mg p.o. q.h.s. and 1 mg q.a.m. 2. Coumadin 5 mg p.o. daily. 3. Cymbalta 60 mg p.o. b.i.d. 4. Exelon 3 mg p.o. daily. 5. Glucophage 500 mg p.o. daily. 6. HydroDIURIL 25 mg p.o. daily. 7. Latuda 80 mg p.o. daily. 8. Lyrica 75 mg p.o. b.i.d. 9. Norvasc 10 mg p.o. daily. 10.Requip 1 mg p.o. b.i.d. 11.Singulair 10 mg p.o. daily. 12.Synthroid 125 mcg p.o. daily. 13.Topamax 50 mg p.o. daily. 14.Ultram 50 mg p.o. daily. 15.Vitamin D2 50,000 daily. 16.Flagyl 500 mg q.8h for 10 days. 17.IV antibiotics per Infectious Disease, PICC line care. Once again, the patient being discharged in stable condition. Guarded prognosis. MMODL / IJN: [id number] /
[2019-12-29] MEDS ORDERED: ERGOCALCIFEROL 50,000 UNIT CAP PO SCH (09:00)
== END 2019-12-27 12:02 | disposition home health service (06) | DRG 853 ==
LOC: 6NMEDSUR 09:42 → 2SICU 16:35 → 4SSUR 12-23 05:46
PROVIDERS: ADMIT Family Medicine; ATTEND Family Medicine
PROC: 5A1955Z Respiratory Ventilation, Greater than 96 Consecutive Hours (ICD-10-PCS; 2019-12-15)
PROC: 0BH17EZ Insertion of Endotracheal Airway into Trachea, Via Natural or Artificial Opening (ICD-10-PCS; 2019-12-15)
PROC: 0J9100Z Drainage of Face Subcutaneous Tissue and Fascia with Drainage Device, Open Approach (ICD-10-PCS; principal; 2019-12-15 17:44)
PROC: 0C9X000 Drainage of Lower Tooth with Drainage Device, Open Approach, Single (ICD-10-PCS; principal; 2019-12-15 17:44)
PROC: 0C9400Z Drainage of Buccal Mucosa with Drainage Device, Open Approach (ICD-10-PCS; principal; 2019-12-15 17:44)
PROC: 0C9M00Z Drainage of Pharynx with Drainage Device, Open Approach (ICD-10-PCS; principal; 2019-12-15 17:44)
PROC: 0CDXXZ0 Extraction of Lower Tooth, Single, External Approach (ICD-10-PCS; principal; 2019-12-15 17:44)
PROC: 02HV33Z Insertion of Infusion Device into Superior Vena Cava, Percutaneous Approach (ICD-10-PCS; 2019-12-17)
PROC: 5A09357 Assistance with Respiratory Ventilation, Less than 24 Consecutive Hours, Continuous Positive Airway Pressure (ICD-10-PCS; 2019-12-20)
PROC: 02HV33Z Insertion of Infusion Device into Superior Vena Cava, Percutaneous Approach (ICD-10-PCS; 2019-12-27)
DX: A41.50 Gram-negative sepsis, unspecified (principal); G93.41 Metabolic encephalopathy; J96.01 Acute respiratory failure with hypoxia; E87.4 Mixed disorder of acid-base balance; F05 Delirium due to known physiological condition; F31.30 Bipolar disorder, current episode depressed, mild or moderate severity, unspecified; J39.0 Retropharyngeal and parapharyngeal abscess; J44.1 Chronic obstructive pulmonary disease with (acute) exacerbation; J93.82 Other air leak; J98.11 Atelectasis; K12.2 Cellulitis and abscess of mouth; L02.01 Cutaneous abscess of face; L02.11 Cutaneous abscess of neck; Z99.11 Dependence on respirator [ventilator] status; E11.69 Type 2 diabetes mellitus with other specified complication; M27.2 Inflammatory conditions of jaws; R65.20 Severe sepsis without septic shock; Z79.84 Long term (current) use of oral hypoglycemic drugs; E03.9 Hypothyroidism, unspecified; E11.51 Type 2 diabetes mellitus with diabetic peripheral angiopathy without gangrene; E66.01 Morbid (severe) obesity due to excess calories; E87.6 Hypokalemia; F17.210 Nicotine dependence, cigarettes, uncomplicated; F41.0 Panic disorder [episodic paroxysmal anxiety]; G25.81 Restless legs syndrome; G40.909 Epilepsy, unspecified, not intractable, without status epilepticus; G43.909 Migraine, unspecified, not intractable, without status migrainosus; I10 Essential (primary) hypertension; K04.7 Periapical abscess without sinus; K64.9 Unspecified hemorrhoids; M19.90 Unspecified osteoarthritis, unspecified site; M79.7 Fibromyalgia; Z68.32 Body mass index [BMI] 32.0-32.9, adult; Z79.01 Long term (current) use of anticoagulants; Z79.2 Long term (current) use of antibiotics; Z79.890 Hormone replacement therapy; Z79.899 Other long term (current) drug therapy; Z82.5 Family history of asthma and other chronic lower respiratory diseases; M51.36 Other intervertebral disc degeneration, lumbar region; M54.32 Sciatica, left side; Z89.421 Acquired absence of other right toe(s); R45.1 Restlessness and agitation; Z78.1 Physical restraint status; Z60.2 Problems related to living alone
CPT/HCPCS: 36573; 36600; 70450; 70490; 70491; 71045; 71260; 71275; 80048; 80053; 82040; 82330; 82805; 83605; 83735; 84100; 84132; 84439; 84443; 84478; 85025; 85027; 85379; 85610; 85730; 86140; 86850; 86900; 86901; 87040; 87070; 87075; 87205; 93005; 94002; 94003; 94640; 94760

== ENCOUNTER → 2020-06-14 | Outpatient (CLI) | payer OTHER ==
--- NOTE | 2020-06-14 11:31 | XR ---
EXAMINATION TYPE: XR chest 2V DATE OF EXAM: 06/14/2020 COMPARISON: Chest radiograph 12/21/2019 HISTORY: COPD. Low oxygen saturation. History of smoking. TECHNIQUE: Frontal and lateral views of the chest are obtained. FINDINGS: The lungs are hyperexpanded with flattening of the hemidiaphragms. There is bronchiectasis seen over the right upper lung. There is no focal air space opacity, pleural effusion, or pneumothor ax seen. The cardiac silhouette size is within normal limits. The osseous structures are intact. IMPRESSION: Emphysematous changes as above. No focal consolidation.
== END | disposition home or self-care (01) ==
LOC: RADXRMAIN 10:51
PROVIDERS: ATTEND Family Medicine
DX: J43.9 Emphysema, unspecified (principal)
CPT/HCPCS: 71046

== ENCOUNTER 2021-07-25 00:01 | Emergency (ER) | payer OTHER ==
--- NOTE | 2021-07-25 00:36 | ED ---
ENT HPI - General Chief complaint: ENT Stated complaint: Bleeding from ear Time Seen by Provider: 07/25/21 00:16 Source: patient, RN notes reviewed, old records reviewed Mode of arrival: ambulatory Limitations: no limitations - History of Present Illness Initial comments: This is a 56-year-old female to the ER for evaluation patient is intoxicated a little tinnitus falls patient coming in for evaluation regards to bleeding noticed from her right ear for a few hours now. She is on Coumadin and recently increased her dose of Coumadin. Patient denies any current trauma that doesn't again admits alcohol use kyler HAAS complaint: ear pain, other (ear bleeding) -: hour(s) Location: R ear Severity: moderate Severity scale (1-10): 4 Worsens with: none Context-Epistaxis: warfarin use, history of similar Context- Ear: recent illness Associated Symptoms: sore throat, discharge from ear - Related Data Home Medications Medication Instructions Recorded Confirmed DULoxetine HCL [Cymbalta] 60 mg PO BID 03/23/14 12/15/19 Ergocalciferol [Vitamin D2 50,000 unit PO WE 03/23/14 12/15/19 (DRISDOL)] Levothyroxine Sodium [Synthroid] 125 mcg PO DAILY 03/23/14 12/15/19 Montelukast [Singulair] 10 mg PO DAILY 03/23/14 12/15/19 Pregabalin [Lyrica] 75 mg PO BID 03/23/14 12/15/19 Topiramate [Topamax] 50 mg PO DAILY 03/23/14 12/15/19 amLODIPine [Norvasc] 10 mg PO DAILY 03/23/14 12/15/19 hydroCHLOROthiazide [Hydrodiuril] 25 mg PO DAILY 03/23/14 12/15/19 Rivastigmine Tartrate [Exelon] 3 mg PO DAILY 09/04/16 12/15/19 clonazePAM [Clonazepam] 1 mg PO QAM 09/04/16 12/15/19 clonazePAM [Clonazepam] 2 mg PO HS 09/04/16 12/15/19 metFORMIN HCL [Glucophage] 500 mg PO DAILY 09/04/16 12/15/19 Lurasidone [Latuda] 80 mg PO DAILY 12/15/19 12/15/19 Warfarin [Coumadin] 5 mg PO DAILY 12/15/19 12/15/19 rOPINIRole HCL [Requip] 1 mg PO BID 12/15/19 12/15/19 traMADol HCL [Ultram] 50 mg PO DAILY 12/15/19 12/15/19 Previous Rx's Medication Instructions Recorded Amoxic-Pot Clav 875-125Mg 1 each PO Q12HR tab 12/25/19 [Augmentin 875-125] metroNIDAZOLE [Flagyl] 500 mg PO Q8HR #30 tab 12/27/19 Allergies Allergy/AdvReac Type Severity Reaction Status Date / Time No Known Allergies Allergy Verified 07/25/21 00:11 Review of Systems ROS Statement: Those systems with pertinent positive or pertinent negative responses have been documented in the HPI. ROS Other: All systems not noted in ROS Statement are negative. 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 Past Anesthesia/Blood Transfusion Reactions: No Reported Reaction Additional Past Anesthesia/Blood Transfusion Reaction / Comment(s): Pt has received blood in the past without reaction. Past Psychological History: Anxiety, Bipolar, Depression, Panic Disorder Smoking Status: Current every day smoker Past Alcohol Use History: Daily Past Drug Use History: Marijuana - Past Family History Father Family Medical History: COPD Additional Family Medical History / Comment(s): Father of COPD. He was a smoker. Mother Family Medical History: No Reported History Additional Family Medical History / Comment(s): Mother is 87yrs old and healthy. General Exam Limitations: no limitations General appearance: alert, in no apparent distress Head exam: Present: atraumatic, normocephalic, normal inspection Eye exam: Present: normal appearance, PERRL, EOMI. Absent: scleral icterus, conjunctival injection, periorbital swelling ENT exam: Present: normal exam, mucous membranes moist. Absent: TM's normal bi laterally (mild bleeding from external right ear) Neck exam: Present: normal inspection. Absent: tenderness, meningismus, lymphadenopathy Respiratory exam: Present: normal lung sounds bilaterally. Absent: respiratory distress, wheezes, rales, rhonchi, stridor Cardiovascular Exam: Present: regular rate, normal rhythm, normal heart sounds. Absent: systolic murmur, diastolic murmur, rubs, gallop, clicks GI/Abdominal exam: Present: soft, normal bowel sounds. Absent: distended, tenderness, guarding, rebound, rigid Extremities exam: Present: normal inspection, full ROM, normal capillary refill. Absent: tenderness, pedal edema, joint swelling, calf tenderness Back exam: Present: normal inspection Neurological exam: Present: alert, oriented X3, CN II-XII intact Psychiatric exam: Present: normal affect, normal mood Skin exam: Present: warm, dry, intact, normal color. Absent: rash Course Vital Signs 07/25/21 07/25/21 07/25/21 00:08 03:14 03:30 Temperature 98 F Pulse Rate 98 75 81 Respiratory 18 18 18 Rate Blood Pressure 114/79 117/79 118/78 O2 Sat by Pulse 91 L 93 L 94 L Oximetry 07/25/21 03:53 Temperature 98.1 F Pulse Rate 87 Respiratory 17 Rate Blood Pressure 118/67 O2 Sat by Pulse 94 L Oximetry - Reevaluation(s) Reevaluation #1: 07/25/21 Medical record is reviewed Patient symptoms are improved here in the ER Patient informed of results and questions answered Patient is in no distress Patient is okay for discharge Medical Decision Making - Medical Decision Making 56 female with mild Coumadin coagulopathy and bleeding from right ear. Patient's bleeding is stopped with persistent pressure here in the ER and can be discharged - Lab Data Result diagrams: 07/25/21 01:18 07/25/21 01:18 Lab Results 07/25/21 07/25/21 07/25/21 Range/Units 01:18 01:18 01:18 WBC 10.0 (3.8-10.6) k/uL RBC 5.57 H (3.80-5.40) m/uL Hgb 14.1 (11.4-16.0) gm/dL Hct 44.1 (34.0-46.0) % MCV 79.0 L (80.0-100.0) fL MCH 25.2 (25.0-35.0) pg MCHC 31.9 (31.0-37.0) g/dL RDW 18.3 H (11.5-15.5) % Plt Count 278 (150-450) k/uL MPV 11.5 Neutrophils % 70 % Lymphocytes % 22 % Monocytes % 5 % Eosinophils % 1 % Basophils % 1 % Neutrophils # 7.0 (1.3-7.7) k/uL Lymphocytes # 2.2 (1.0-4.8) k/uL Monocytes # 0.5 (0-1.0) k/uL Eosinophils # 0.1 (0-0.7) k/uL Basophils # 0.1 (0-0.2) k/uL Hypochromasia Moderate Poikilocytosis Slight Anisocytosis Slight Microcytosis Slight PT 50.4 H (9.0-12.0) sec INR 5.2 H* (<1.2) APTT 57.2 H (22.0-30.0) sec Sodium 133 L (137-145) mmol/L Potassium 3.7 (3.5-5.1) mmol/L Chloride 98 (98-107) mmol/L Carbon Dioxide 26 (22-30) mmol/L Anion Gap 9 mmol/L BUN 8 (7-17) mg/dL Creatinine 0.77 (0.52-1.04) mg/dL Est GFR (CKD-EPI)AfAm >90 (>60 ml/min/1.73 sqM) Est GFR (CKD-EPI)NonAf 87 (>60 ml/min/1.73 sqM) Glucose 99 (74-99) mg/dL Calcium 9.6 (8.4-10.2) mg/dL Total Bilirubin 0.2 (0.2-1.3) mg/dL AST 29 (14-36) U/L ALT 23 (4-34) U/L Alkaline Phosphatase 86 (38-126) U/L Total Protein 7.1 (6.3-8.2) g/dL Albumin 4.4 (3.5-5.0) g/dL Amylase 86 (30-110) U/L Serum Alcohol <10 mg/dL - Radiology Data Radiology results: report reviewed (CT brain is negative for acute disease), image reviewed Disposition Clinical Impression: Coumadin toxicity, Bleeding from right ear Disposition: HOME SELF-CARE Condition: Good Instructions (If sedation given, give patient instructions): Warfarin (By mouth), Earache (ED) Is patient prescribed a controlled substance at d/c from ED?: No Referrals: Israel Anderson MD [Primary Care Provider] - 1-2 days
[2021-07-25 01:27] LABS: Anisocytosis Slight; Basophils # (A) 0.1 k/uL (0-0.2); Basophils % (A) 1 %; Eosinophils # (A) 0.1 k/uL (0-0.7); Eosinophils % (A) 1 %; HCT 44.1 % (34.0-46.0); HGB 14.1 gm/dL (11.4-16.0); Hypochromasia Moderate; Lymphocytes # (A) 2.2 k/uL (1.0-4.8); Lymphocytes % (A) 22 %; MCH 25.2 pg (25.0-35.0); MCHC 31.9 g/dL (31.0-37.0); Mean Platelet Volume 11.5; Microcytosis Slight; Monocytes # (A) 0.5 k/uL (0-1.0); Monocytes % (A) 5 %; Neutrophils % (A) 70 %; Platelet Count 278 k/uL (150-450); Poikilocytosis Slight; RBC 5.57 m/uL (3.80-5.40); RDW 18.3 % (11.5-15.5)
[2021-07-25 01:55] LABS: African American GFR (CKD) >90 (>60 ml/min/1.73 sqM); Albumin 4.4 g/dL (3.5-5.0); Amylase 86 U/L (30-110); Anion Gap 9 mmol/L; Blood Urea Nitrogen 8 mg/dL (7-17); Carbon Dioxide 26 mmol/L (22-30); Chloride 98 mmol/L (98-107); Glucose 99 mg/dL (74-99); Non-African American GFR(CKD) 87 (>60 ml/min/1.73 sqM); Potassium 3.7 mmol/L (3.5-5.1); Sodium 133 mmol/L (137-145); Total Protein 7.1 g/dL (6.3-8.2)
[2021-07-25 01:57] LABS: ALT 23 U/L (4-34); AST 29 U/L (14-36); Alcohol <10 mg/dL; Alkaline Phosphatase 86 U/L (38-126); Calcium 9.6 mg/dL (8.4-10.2); Total Bilirubin 0.2 mg/dL (0.2-1.3)
[2021-07-25 02:06] LABS: Partial Thromboplastin Time 57.2 sec (22.0-30.0); Prothrombin Time 50.4 sec (9.0-12.0)
[2021-07-25] MEDS ORDERED: PHYTONADIONE 5 MG in SODIUM CHLORIDE 0.9% 50 ML IVPB ONE (02:10)
--- NOTE | 2021-07-25 02:30 | CT ---
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 No pain or injury per pt CT DLP: 979.4 mGycm Automated exposure control for dose reduction was used. The ventricles and sulci appear normal. There is no mass effect nor midline shift. There is no sign o f intracranial hemorrhage. Mastoid sinuses appear normal. Skull base is intact. The calvarium is inta ct. External auditory canals appear normal. Cervical vertebra have fairly normal alignment. Posterior elements are intact. There is no compressio n fracture. Facet joints appear intact. Prevertebral soft tissues appear normal. IMPRESSION: Negative CT scan of the brain. Negative CT scan cervical spine. Brain not changed compared to old exam.
--- NOTE | 2021-07-25 02:36 | CT ---
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 No pain or injury per pt CT DLP: 979.4 mGycm Automated exposure control for dose reduction was used. Images were obtained from the skull base to the top of the orbits without contrast. There is normal development and aeration of the mastoid sinuses. Posterior fossa structures appear no rmal. There is no evidence of cerebellopontine angle mass. Internal auditory canals appear normal. Th e external auditory canals appear normal. There is normal aeration of the epitympanic recess bilatera lly. There is normal aeration of the middle ear cavities. There is some erosion on the articular surfaces of both mandibular condyles. The cochlea and semicircular canals appear intact. I see no focal bone destruction. There is large ju gular foramen on the right side compared to the left. This is probably a normal variation. IMPRESSION: No demonstrated abnormality of the temporal bones. I do not see a cause for hemotympanum. No evidence of any fluid or debris in the external auditory canals. Arthritic changes in the temporomandibular joints.
[2021-07-25 02:47] LABS: INR 5.2 (<1.2)
[2021-07-25 03:54] VITALS: BP 118/67; PULSE 87; RESP 17; TEMP 98.1
== END 2021-07-25 03:54 | disposition home or self-care (01) ==
LOC: EC 00:01
DX: H92.21 Otorrhagia, right ear (principal); T45.515A Adverse effect of anticoagulants, initial encounter; I10 Essential (primary) hypertension; E11.9 Type 2 diabetes mellitus without complications; M19.90 Unspecified osteoarthritis, unspecified site; E07.9 Disorder of thyroid, unspecified; F41.9 Anxiety disorder, unspecified; F31.9 Bipolar disorder, unspecified; F17.200 Nicotine dependence, unspecified, uncomplicated; F12.90 Cannabis use, unspecified, uncomplicated; Z79.84 Long term (current) use of oral hypoglycemic drugs; Z79.01 Long term (current) use of anticoagulants
CPT/HCPCS: 99283; 96365; 36415; 80053; 82150; 85025; 85610; 85730; 72125; 70450; 70480; G0480; J3430; 80320

== ENCOUNTER → 2022-10-23 | Outpatient (CLI) | payer OTHER ==
--- NOTE | 2022-10-23 12:27 | CTL ---
EXAMINATION TYPE: CT Low Dose Lung DATE OF EXAM ORDERED: 10/23/2022 HISTORY: 57-year-old female current smoker with 40 pack-year history, Lung cancer screening CT DLP: 86.[address] CTDI: 2.4 mGy Automated exposure control for dose reduction was used. SCREENING VISIT: Baseline COMPARISON: 12/20/2019 TECHNIQUE: Low dose computed tomography scan was performed through the chest with coronal and sagitta l reconstructions. CT DIAGNOSTIC QUALITY: Satisfactory FINDINGS: Heart normal size without pericardial effusion. Mild proximal LAD coronary artery calcifications are present. Aorta normal caliber with bovine configuration to the aortic arch. Borderline sized right paratracheal nodes measuring up to 1.1 cm nonspecific. AP window node measurin g up to 1.0 cm. There is mild to moderate upper lung predominant centrilobular emphysema. Scattered subpleural inters titial thickening suggests some concurrent mild fibrosis. Scattered pleural parenchymal scarring is p resent. Areas of groundglass density in the posterior lower lobes could reflect scarring or pneumonit is should be correlated clinically. 6 mm right mid lung pulmonary nodule, axial image 145. Adjacent 4 mm right mid lung pulmonary nodule, axial image 150. Neither clearly seen on 12/20/2019. No pleural effusion. Visualized upper abdomen shows no gross abnormality. Bones: Accentuated midthoracic kyphosis. No osseous destructive process. IMPRESSION: 1. LungRADS Category 3 (probably benign, 1-2% chance of malignancy) ; a couple new right midlung pulm onary nodules measuring 6 mm and 4 mm. As they are located along the minor fissure, they may represen t prominent intrafissural lymph nodes and this decreases the overall suspicion. Six-month follow-up l ow-dose CT to reassess. 2. COPD with mild to moderate emphysema. Scattered areas of mild interstitial fibrosis is suggested. There is also prominent groundglass change in the posterior lower lobes. Unclear if this represents c hronic areas of scarring VS interstitial pneumonitis such as NSIP or DIP. Reassess at follow-up and c linically correlate. 3. A borderline to mildly enlarged right paratracheal lymph node at 1.1 cm is nonspecific and should be reassessed at follow-up CT LUNG RAD AND CT CHEST RECOMMENDATION: Lung-Rad 3 Probably Benign: 6 month follow-up LDCT. S Modifier (other clinically significant findings): S, reassess the right paratracheal node at the ang balderrama's 6 month follow-up.
== END | disposition home or self-care (01) ==
LOC: RADCTMAIN 10:18
PROVIDERS: ATTEND Family Medicine
DX: Z12.2 Encounter for screening for malignant neoplasm of respiratory organs (principal); R91.8 Other nonspecific abnormal finding of lung field; J43.9 Emphysema, unspecified; Z87.891 Personal history of nicotine dependence
CPT/HCPCS: 71271

== ENCOUNTER 2024-10-10 12:58 | Inpatient (IN) | payer OTHER ==
--- NOTE | 2024-10-10 13:34 | ED ---
General Adult HPI - General Chief complaint: Nausea/Vomiting/Diarrhea Stated complaint: vomitting up seizure pills Time Seen by Provider: 10/10/24 13:03 Source: patient, RN notes reviewed Mode of arrival: ambulatory Limitations: no limitations - History of Present Illness Initial comments: 59-year-old female presents to the emergency department for evaluation of nausea and vomiting. Patient states that for the past 3 days she has been unable to tolerate p.o. intake. She notes that she has not been able to take her seizure medication because of this. Patient reports diarrhea yesterday. She admits to upper abdominal discomfort. Patient also states that she took a fall 1 week ago hitting her right hip and her head. She is on Coumadin. - Related Data Home Medications Medication Instructions Recorded Confirmed DULoxetine HCL [Cymbalta] 60 mg PO BID 03/23/14 10/10/24 Montelukast [Singulair] 10 mg PO DAILY 03/23/14 10/10/24 Pregabalin [Lyrica] 75 mg PO BID 03/23/14 10/10/24 clonazePAM [Clonazepam] 1 mg PO DAILY 09/04/16 10/10/24 clonazePAM [Clonazepam] 2 mg PO HS 09/04/16 10/10/24 metFORMIN HCL [Glucophage] 500 mg PO DAILY 09/04/16 10/10/24 rOPINIRole HCL [Requip] 2 mg PO HS 12/15/19 10/10/24 Atorvastatin [Lipitor] 40 mg PO HS 10/10/24 10/10/24 Budesonide [Pulmicort] 0.5 mg INHALATION RT-BID 10/10/24 10/10/24 Doxycycline Monohydrate 100 mg PO BID 10/10/24 10/10/24 Fluticasone/Umeclidin/Vilanter 1 puff INHALATION RT-DAILY 10/10/24 10/10/24 [Trelegy Ellipta 200-62.5-25] Levothyroxine Sodium [Synthroid] 100 mcg PO DAILY 10/10/24 10/10/24 Losartan [Cozaar] 25 mg PO DAILY 10/10/24 10/10/24 Omeprazole [PriLOSEC] 40 mg PO DAILY 10/10/24 10/10/24 Potassium Chloride [Klor-Con M10] 10 meq PO DAILY 10/10/24 10/10/24 Rivastigmine Tartrate 3 mg PO DAILY 10/10/24 10/10/24 [Rivastigmine] Topiramate [Topamax] 75 mg PO BID 10/10/24 10/10/24 Warfarin Sodium [Jantoven] 3.75 mg PO Q48H 10/10/24 10/10/24 Warfarin Sodium [Jantoven] 7.5 mg PO Q48H 10/10/24 10/10/24 amLODIPine [Norvasc] 5 mg PO DAILY 10/10/24 10/10/24 levETIRAcetam [Keppra] 500 mg PO BID 10/10/24 10/10/24 Allergies Allergy/AdvReac Type Severity Reaction Status Date / Time No Known Allergies Allergy Verified 10/10/24 15:44 Review of Systems ROS Statement: Those systems with pertinent positive or pertinent negative responses have been documented in the HPI. ROS Other: All systems not noted in ROS Statement are negative. 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 Past Anesthesia/Blood Transfusion Reactions: No Reported Reaction Additional Past Anesthesia/Blood Transfusion Reaction / Comment(s): Pt has received blood in the past without reaction. Past Psychological History: Anxiety, Bipolar, Depression, Panic Disorder Smoking Status: Current every day smoker Past Alcohol Use History: Daily Past Drug Use History: Marijuana - Past Family History Father Family Medical History: COPD Additional Family Medical History / Comment(s): Father of COPD. He was a smoker. Mother Family Medical History: No Reported History Additional Family Medical History / Comment(s): Mother is 87yrs old and healthy. General Exam Limitations: no limitations General appearance: alert, in no apparent distress Head exam: Present: atraumatic, normocephalic, normal inspection Eye exam: Present: normal appearance, PERRL, EOMI. Absent: scleral icterus, conjunctival injection, periorbital swelling ENT exam: Present: normal exam, mucous membranes moist Neck exam: Present: normal inspection. Absent: tenderness, meningismus, lymphadenopathy Respiratory exam: Present: normal lung sounds bilaterally. Absent: respiratory distress, wheezes, rales, rhonchi, stridor Cardiovascular Exam: Present: normal rhythm, bradycardia, normal heart sounds. Absent: systolic murmur, diastolic murmur, rubs, gallop, clicks GI/Abdominal exam: Present: soft, tenderness, normal bowel sounds. Absent: guarding, rebound, rigid Extremities exam: Present: normal inspection, full ROM, normal capillary refill. Absent: tenderness, pedal edema, joint swelling, calf tenderness Back exam: Present: normal inspection Neurological exam: Present: alert, oriented X3 Psychiatric exam: Present: normal affect, normal mood Skin exam: Present: warm, dry, intact, normal color. Absent: rash Course Vital Signs 10/10/24 10/10/24 10/10/24 13:00 14:32 14:39 Temperature 97.7 F Pulse Rate 68 51 L 52 L Respiratory 20 Rate Blood Pressure 154/82 O2 Sat by Pulse 96 Oximetry 10/10/24 17:35 Temperature Pulse Rate 70 Respiratory 16 Rate Blood Pressure 156/78 O2 Sat by Pulse 92 L Oximetry Medical Decision Making - Medical Decision Making Was pt. sent in by a medical professional or institution (Dr. PA, CUT TO LENGTH OPERATOR, urgent care, hospital, or prison...) When possible be specific @ -No Did you speak to anyone other than the patient for history (EMS, parent, family, police, friend...)? What history was obtained from this source @ -No Did you review nursing and triage notes (agree or disagree)? Why? @ -I reviewed and agree with nursing and triage notes Were old charts reviewed (outside hosp., previous admission, EMS record, old EKG, old radiological studies, urgent care reports/EKG's, prison records)? Report findings @ -No old charts were reviewed Differential Diagnosis (chest pain, altered mental status, abdominal pain women, abdominal pain men, vaginal bleeding, weakness, fever, dyspnea, syncope, headache, dizziness, GI bleed, back pain, seizure, CVA, palpatations, mental health, musculoskeletal)? @ -Differential Abdominal Pain Women: Appendicitis, Cholecystitis, diverticulosis, ischemic bowel, pancreatitis, hepatitis, UTI, gastroenteritis, AAA, incarcerated hernia, bowel obstruction, constipation, inflammatory bowel, hepatitis, peptic ulcer disease, splenic infarction, perforated viscus, vulvitis, ovarian torsion, PID, kidney stone, placenta abruption, this is not meant to be an all-inclusive list EKG interpreted by me (3pts min.). @ -EKG at 1342 shows sinus bradycardia rate 45, NE 138, QRS 110, QTQTc 4 21510 X-rays interpreted by me (1pt min.). @ -None done CT interpreted by me (1pt min.). @ -None done U/S interpreted by me (1pt. min.). @ -None done What testing was considered but not performed or refused? (CT, X-rays, U/S, labs)? Why? @ -None What meds were considered but not given or refused? Why? @ -None Did you discuss the management of the patient with other professionals (professionals i.e. , PA, CUT TO LENGTH OPERATOR, lab, RT, psych nurse, social services specialist, tool maintenance worker, teacher, planned giving officer, employment case manager)? Give summary @ -Case discussed with Dr. Phipps as the patient has lower sternum fracture from trauma within 2 weeks of presentation. Recommended admission to internal medicine with consult to cardiothoracic surgery Case discussed with Dr. Anderson who is accepting of the admission Was smoking cessation discussed for >3mins.? @ -No Was critical care preformed (if so, how long)? @ -No Were there social determinants of health that impacted care today? How? (Homelessness, low income, unemployed, alcoholism, drug addiction, transportation, low edu. Level, literacy, decrease access to med. care, shelter, rehab)? @ -Homelessness Was there de-escalation of care discussed even if they declined (Discuss DNR or withdrawal of care, Hospice)? DNR status @ -No What co-morbidities impacted this encounter? (DM, HTN, Smoking, COPD, CAD, Cancer, CVA, ARF, Chemo, Hep., AIDS, mental health diagnosis, sleep apnea, morbid obesity)? @ -None Was patient admitted / discharged? Hospital course, mention meds given and route, prescriptions, significant lab abnormalities, going to OR and other pertinent info. @ -Admitted. Patient presented to the emergency department for nausea and vomiting, abdominal pain. Laboratory studies were obtained.Patient has no significant leukocytosis, hemoglobin stable at 13 coagulation studies significant for an INR of greater than 10. CMP shows a potassium of 2.9 which is replaced with potassium protocol. Patient has a negative troponin. Patient negative for COVID, influenza, RSV. Upon further questioning, patient reports a fall about 1 week ago in which she hit her right leg and her head. Patient underwent head CT along with chest abdomen pelvis. Findings of CT brain shows no acute process. Chest CT shows a depressed nondisplaced fracture of the lower sternum and nonspecific dependent consolidative changes in the lower lobes of the lungs. Abdomen pelvis shows severe bilateral perinephritic stranding, mild bilateral hydronephrosis and severe urothelial wall thickening/hyperenhancement with surrounding inflammation felt to represent pyelitis. UA significant for mo derate leukocyte esterase, blood, white blood cells. The patient was provided 2.5 mg of p.o. vitamin K. She is also provided medication for nausea and analgesia with IV fluids and placed on maintenance fluids. Patient given a dose of Rocephin. She will be admitted to the hospital. Case was discussed with Dr. Mccoy as the patient had a traumatic injury within 2 weeks. He recommended cardiothoracic consultation and admission to hospital medicine. Case was discussed with the patient's primary care provider, Dr. Anderson who is accepting of the admission. Case was discussed with Dr. Joya. Undiagnosed new problem with uncertain prognosis? @ -No Drug Therapy requiring intensive monitoring for toxicity (Heparin, Nitro, Insulin, Cardizem)? @ -No Were any procedures done? @ -No Diagnosis/symptom? @ -Sternal fracture, warfarin toxicity, pyelonephritis Acute, or Chronic, or Acute on Chronic? @ -Acute Uncomplicated (without systemic symptoms) or Complicated (systemic symptoms)? @ -complicated Side effects of treatment? @ -Yes Exacerbation, Progression, or Severe Exacerbation? @ -No Poses a threat to life or bodily function? How? (Chest pain, USA, NM, pneumonia, PE, COPD, DKA, ARF, appy, cholecystitis, CVA, Diverticulitis, Homicidal, Suicidal, threat to staff... and all critical care pts) @ -No - Lab Data Result diagrams: 10/10/24 13:50 10/10/24 13:50 Lab Results 10/10/24 10/10/24 10/10/24 Range/Units 13:50 13:50 13:50 WBC 10.6 (3.8-10.6) k/uL RBC 4.51 (3.80-5.40) m/uL Hgb 13.0 (11.4-16.0) gm/dL Hct 39.9 (34.0-46.0) % MCV 88.4 (80.0-100.0) fL MCH 28.8 (25.0-35.0) pg MCHC 32.6 (31.0-37.0) g/dL RDW 16.3 H (11.5-15.5) % Plt Count 280 (150-450) k/uL MPV 10.0 Neutrophils % 79 % Lymphocytes % 11 % Monocytes % 8 % Eosinophils % 1 % Basophils % 0 % Neutrophils # 8.3 H (1.3-7.7) k/uL Lymphocytes # 1.2 (1.0-4.8) k/uL Monocytes # 0.9 (0-1.0) k/uL Eosinophils # 0.1 (0-0.7) k/uL Basophils # 0.0 (0-0.2) k/uL Hypochromasia Slight Anisocytosis Slight PT >130.0 H (10.0-12.5) sec INR >10.0 H* (<1.2) APTT 122.4 H* (22.0-30.0) sec Sodium 134 L (137-145) mmol/L Potassium 2.9 L (3.5-5.1) mmol/L Chloride 105 (98-107) mmol/L Carbon Dioxide 21 L (22-30) mmol/L Anion Gap 8 mmol/L BUN 16 (7-17) mg/dL Creatinine 0.84 (0.52-1.04) mg/dL Est GFR (CKD-EPI)AfAm 88 (>60 ml/min/1.73 sqM) Est GFR (CKD-EPI)NonAf 76 (>60 ml/min/1.73 sqM) Glucose 133 H (74-99) mg/dL Calcium 9.3 (8.4-10.2) mg/dL Magnesium 1.8 (1.6-2.3) mg/dL Total Bilirubin 0.9 (0.2-1.3) mg/dL AST 16 (14-36) U/L ALT 11 (4-34) U/L Alkaline Phosphatase 98 (38-126) U/L Troponin I (0.000-0.034) ng/mL Total Protein 6.6 (6.3-8.2) g/dL Albumin 3.7 (3.5-5.0) g/dL Amylase <30 L (30-110) U/L Lipase 13 L (23-300) U/L Urine Color Urine Appearance (Clear) Urine pH (5.0-8.0) Ur Specific [place] (1.001-1.035) Urine Protein (Negative) Urine Glucose (UA) (Negative) Urine Ketones (Negative) Urine Blood (Negative) Urine Nitrite (Negative) Urine Bilirubin (Negative) Urine Urobilinogen (<2.0) mg/dL Ur Leukocyte Esterase (Negative) Urine RBC (0-5) /hpf Urine WBC (0-5) /hpf Ur Squamous Epith Cells (0-4) /hpf Urine Mucus (None) /hpf Influenza Type A (PCR) (Not Detectd) Influenza Type B (PCR) (Not Detectd) RSV (PCR) (Not Detectd) SARS-CoV-2 (PCR) (Not Detectd) 10/10/24 10/10/24 10/10/24 Range/Units 13:50 13:50 13:50 WBC (3.8-10.6) k/uL RBC (3.80-5.40) m/uL Hgb (11.4-16.0) gm/dL Hct (34.0-46.0) % MCV (80.0-100.0) fL MCH (25.0-35.0) pg MCHC (31.0-37.0) g/dL RDW (11.5-15.5) % Plt Count (150-450) k/uL MPV Neutrophils % % Lymphocytes % % Monocytes % % Eosinophils % % Basophils % % Neutrophils # (1.3-7.7) k/uL Lymphocytes # (1.0-4.8) k/uL Monocytes # (0-1.0) k/uL Eosinophils # (0-0.7) k/uL Basophils # (0-0.2) k/uL Hypochromasia Anisocytosis PT (10.0-12.5) sec INR (<1.2) APTT (22.0-30.0) sec Sodium (137-145) mmol/L Potassium (3.5-5.1) mmol/L Chloride (98-107) mmol/L Carbon Dioxide (22-30) mmol/L Anion Gap mmol/L BUN (7-17) mg/dL Creatinine (0.52-1.04) mg/dL Est GFR (CKD-EPI)AfAm (>60 ml/min/1.73 sqM) Est GFR (CKD-EPI)NonAf (>60 ml/min/1.73 sqM) Glucose (74-99) mg/dL Calcium (8.4-10.2) mg/dL Magnesium 1.9 (1.6-2.3) mg/dL Total Bilirubin (0.2-1.3) mg/dL AST (14-36) U/L ALT (4-34) U/L Alkaline Phosphatase (38-126) U/L Troponin I <0.012 (0.000-0.034) ng/mL Total Protein (6.3-8.2) g/dL Albumin (3.5-5.0) g/dL Amylase (30-110) U/L Lipase (23-300) U/L Urine Color Urine Appearance (Clear) Urine pH (5.0-8.0) Ur Specific [place] (1.001-1.035) Urine Protein (Negative) Urine Glucose (UA) (Negative) Urine Ketones (Negative) Urine Blood (Negative) Urine Nitrite (Negative) Urine Bilirubin (Negative) Urine Urobilinogen (<2.0) mg/dL Ur Leukocyte Esterase (Negative) Urine RBC (0-5) /hpf Urine WBC (0-5) /hpf Ur Squamous Epith Cells (0-4) /hpf Urine Mucus (None) /hpf Influenza Type A (PCR) Not Detected (Not Detectd) Influenza Type B (PCR) Not Detected (Not Detectd) RSV (PCR) Not Detected (Not Detectd) SARS-CoV-2 (PCR) Not Detected (Not Detectd) 10/10/24 Range/Units 16:15 WBC (3.8-10.6) k/uL RBC (3.80-5.40) m/uL Hgb (11.4-16.0) gm/dL Hct (34.0-46.0) % MCV (80.0-100.0) fL MCH (25.0-35.0) pg MCHC (31.0-37.0) g/dL RDW (11.5-15.5) % Plt Count (150-450) k/uL MPV Neutrophils % % Lymphocytes % % Monocytes % % Eosinophils % % Basophils % % Neutrophils # (1.3-7.7) k/uL Lymphocytes # (1.0-4.8) k/uL Monocytes # (0-1.0) k/uL Eosinophils # (0-0.7) k/uL Basophils # (0-0.2) k/uL Hypochromasia Anisocytosis PT (10.0-12.5) sec INR (<1.2) APTT (22.0-30.0) sec Sodium (137-145) mmol/L Potassium (3.5-5.1) mmol/L Chloride (98-107) mmol/L Carbon Dioxide (22-30) mmol/L Anion Gap mmol/L BUN (7-17) mg/dL Creatinine (0.52-1.04) mg/dL Est GFR (CKD-EPI)AfAm (>60 ml/min/1.73 sqM) Est GFR (CKD-EPI)NonAf (>60 ml/min/1.73 sqM) Glucose (74-99) mg/dL Calcium (8.4-10.2) mg/dL Magnesium (1.6-2.3) mg/dL Total Bilirubin (0.2-1.3) mg/dL AST (14-36) U/L ALT (4-34) U/L Alkaline Phosphatase (38-126) U/L Troponin I (0.000-0.034) ng/mL Total Protein (6.3-8.2) g/dL Albumin (3.5-5.0) g/dL Amylase (30-110) U/L Lipase (23-300) U/L Urine Color Light Red Urine Appearance Cloudy H (Clear) Urine pH 5.5 (5.0-8.0) Ur Specific [place] 1.031 (1.001-1.035) Urine Protein 1+ H (Negative) Urine Glucose (UA) Negative (Negative) Urine Ketones Trace H (Negative) Urine Blood Large H (Negative) Urine Nitrite Negative (Negative) Urine Bilirubin Negative (Negative) Urine Urobilinogen <2.0 (<2.0) mg/dL Ur Leukocyte Esterase Moderate H (Negative) Urine RBC >182 H (0-5) /hpf Urine WBC 22 H (0-5) /hpf Ur Squamous Epith Cells 10 H (0-4) /hpf Urine Mucus Moderate H (None) /hpf Influenza Type A (PCR) (Not Detectd) Influenza Type B (PCR) (Not Detectd) RSV (PCR) (Not Detectd) SARS-CoV-2 (PCR) (Not Detectd) Disposition Clinical Impression: Pyelitis, Abnormal INR, Sternum fx Disposition: ADMITTED IP TO THIS HOSP Condition: Stable Is patient prescribed a controlled substance at d/c from ED?: No
[2024-10-10] MEDS: SODIUM CHLORIDE 0.9% 1,000 ML IV STA (13:54)
[2024-10-10] MEDS: ONDANSETRON 4 MG/2 ML VIAL IVP STA (13:55)
[2024-10-10 13:59] LABS: Anisocytosis Slight; Basophils % (A) 0 %; Eosinophils # (A) 0.1 k/uL (0-0.7); Eosinophils % (A) 1 %; HCT 39.9 % (34.0-46.0); Hypochromasia Slight; Lymphocytes # (A) 1.2 k/uL (1.0-4.8); Lymphocytes % (A) 11 %; MCH 28.8 pg (25.0-35.0); MCHC 32.6 g/dL (31.0-37.0); MCV 88.4 fL (80.0-100.0); Monocytes # (A) 0.9 k/uL (0-1.0); Monocytes % (A) 8 %; Neutrophils # (A) 8.3 k/uL (1.3-7.7); Neutrophils % (A) 79 %; Platelet Count 280 k/uL (150-450); RBC 4.51 m/uL (3.80-5.40); RDW 16.3 % (11.5-15.5); WBC 10.6 k/uL (3.8-10.6)
[2024-10-10 14:11] LABS: ALT 11 U/L (4-34); AST 16 U/L (14-36); African American GFR (CKD) 88 (>60 ml/min/1.73 sqM); Albumin 3.7 g/dL (3.5-5.0); Alkaline Phosphatase 98 U/L (38-126); Amylase <30 U/L (30-110); Anion Gap 8 mmol/L; Blood Urea Nitrogen 16 mg/dL (7-17); Calcium 9.3 mg/dL (8.4-10.2); Carbon Dioxide 21 mmol/L (22-30); Chloride 105 mmol/L (98-107); Glucose 133 mg/dL (74-99); Lipase 13 U/L (23-300); Magnesium 1.8 mg/dL (1.6-2.3); Non-African American GFR(CKD) 76 (>60 ml/min/1.73 sqM); Potassium 2.9 mmol/L (3.5-5.1); Sodium 134 mmol/L (137-145); Total Bilirubin 0.9 mg/dL (0.2-1.3); Total Protein 6.6 g/dL (6.3-8.2)
[2024-10-10 14:24] LABS: Prothrombin Time >130.0 sec (10.0-12.5)
[2024-10-10 14:26] LABS: INR >10.0 (<1.2); Partial Thromboplastin Time 122.4 sec (22.0-30.0)
[2024-10-10] MEDS: IPRATROPIUM-ALBUTEROL 3 ML NEB INHALATION STA (14:31)
[2024-10-10] MEDS ORDERED: Potassium Replacement Protocol 1 EACH MISC MISCELLANE PRN (15:10)
--- NOTE | 2024-10-10 15:37 | CT ---
EXAMINATION TYPE: CT brain cspine wo con DATE OF EXAM: 10/10/2024 3:29 PM COMPARISON: Previous study dated 07/25/2021. CLINICAL INDICATION: Female, 59 years old with history of fall; abdominal and chest pain after fall x 1 week ago. nausea and vomiting as well TECHNIQUE: Brain: Multiple axial CT images of the brain were obtained without IV contrast. Cspine: Axial CT images from the skull base to the inferior aspect of T2 we obtained without intraven ous contrast. Coronal and sagittal reformatted images were also reviewed. . CT DLP: 2295.1 mGycm, Automated exposure control for dose reduction was used. FINDINGS: Brain: Extra-axial spaces: No abnormal extra-axial fluid collections. Ventricular system: Within normal limits Cerebral parenchyma: No acute intraparenchymal hemorrhage or mass effect. The parra-white junction is well differentiated. Cerebellum: Unremarkable. Mass effect: No evidence of midline shift. Intracranial vasculature: unremarkable Soft tissues: Normal. Calvarium/osseous structures: No depressed skull fracture. Paranasal sinuses and mastoid air cells: Mucosal thickening of the partially visualized right maxilla ry sinus. Partial desiccation of the bilateral mastoid air cells. Visualized orbits: Orbital contents are intact. Cervical spine: Fracture: None. Osseous structures: Unremarkable Vertebral alignment: Within normal limits. Spinal canal/Neural Foramina: No evidence of high-grade spinal canal stenosis. Neck soft tissues: Prevertebral soft tissues are within normal limits. Other: The airway is patent. The lung apices demonstrate emphysema. IMPRESSION: 1. No acute intracranial process. 2. No evidence of cervical spine fracture. 3. Mild multilevel degenerative disc disease. [facility], , 10/10/2024 3:35 PM
--- NOTE | 2024-10-10 15:53 | CT ---
EXAMINATION TYPE: CT ChestAbdPelvis w con DATE OF EXAM: 10/10/2024 3:33 PM COMPARISON: Previous CT study dated 10/23/2022. CLINICAL INDICATION: Female, 59 years old with history of abd pain; PHH, abdominal and chest pain aft er fall x1 week ago. nausea and vomiting as well Technique: CT ChestAbdPelvis w con; Multiple axial images were obtained. Two-dimensional coronal and sagittal reconstructions were obtained. Contrast used:100ml mL of Isovue 370 with IV Contrast, (None if empty) Oral contrast used: without Oral Contrast CT DLP: 2295.1 mGycm, Automated exposure control for dose reduction was used. Findings: CHEST: Mild cardiomegaly without significant pericardial effusion. No thoracic aortic aneurysm. Coronary art taylor calcifications. Neurologic mediastinal or hilar lymphadenopathy. No pathologic axillary lymphaden opathy. Imaging through the lungs demonstrates emphysema. No definite new suspicious or enlarging pulmonary n odule. Dependent consolidative changes in the lower lobes which could reflect atelectasis versus less likely developing pneumonia. No sizable pleural effusion. No pneumothorax. Depressed nondisplaced fr acture of the lower sternum (sagittal series image 64). Thoracic spine vertebral body heights appear to be maintained. ABDOMEN/pelvis: Liver unremarkable. Spleen normal in size and morphology. Portal veins appear patent. Gallbladder unr emarkable. No suspicious adrenal gland nodule. Pancreas without evidence of ductal dilatation. No abnormal biliary duct dilatation. Imaging through the bowel demonstrates moderate colonic stool burden in the right hemiabdomen. No sma ll bowel obstruction. Stomach underdistended but otherwise unremarkable. Diffuse scalp identified in the mid abdominal aorta without aneurysmal dilatation. Celiac artery and its major grossly patent. Extensive bilateral relatively symmetric perinephric stranding/inflammatory changes. Additionally, th ere is dilatation of the proximal bilateral clotting systems and proximal ureters with severe urothel ial wall thickening/hyperenhancement and associated periureteral fat stranding. No definite obstructi ng renal or ureteral calculus identified. Urinary bladder unremarkable. No acute fracture or dislocation. IMPRESSION: Chest: Depressed nondisplaced fracture of the lower sternum. Nonspecific mild dependent consolidative changes in the lower lobes which could reflect atelectasis v ersus less likely pneumonia. Pulmonary contusions would be considered much less likely given absence of displaced rib fractures. Abdomen/pelvis: Severe bilateral perinephric stranding, mild bilateral hydronephrosis and severe urothelial wall thic kening/hyperenhancement with surrounding inflammation. Constellation of findings are felt to favor se sylwia pyelitis. Recommend correlation with urinalysis. Consider direct visualization/ureteroscopic vladislav luation symptoms persist despite appropriate treatment course. [facility], , 10/10/2024 3:51 PM
[2024-10-10] MEDS: POTASSIUM CHLORIDE ER 20 MEQ TAB.ER PO SCH (16:02)
[2024-10-10] MEDS: PHYTONADIONE ORAL 5 MG/5 ML ORAL.SYRG PO ONE (16:20)
[2024-10-10 16:34] LABS: Appearance,Urine Cloudy (Clear); Bilirubin,Urine Negative (Negative); Blood,Urine Large (Negative); Color,Urine Light Red; Glucose,Urine (UA) Negative (Negative); Ketones,Urine Trace (Negative); Leukocyte Esterase,Urine Moderate (Negative); Mucus,Urine Moderate /hpf; Nitrite,Urine Negative (Negative); PH, Urine 5.5 (5.0-8.0); Protein,Urine 1+ (Negative); RBC,Urine >182 /hpf (0-5); Specific Gravity,Urine 1.031 (1.001-1.035); Squamous Epithelial Cell,Urine 10 /hpf (0-4); Urobilinogen,Urine <2.0 mg/dL (<2.0); WBC,Urine 22 /hpf (0-5)
[2024-10-10] MEDS: SODIUM CHLORIDE 0.9% 1,000 ML IV SCH (17:45)
[2024-10-10] MEDS: MORPHINE SULFATE 4 MG/ML SYRINGE IVP STA (17:45)
[2024-10-10] MEDS: METOCLOPRAMIDE 5 MG/ML 2 ML VIAL IVP STA (17:46)
[2024-10-10] MEDS ORDERED: NALOXONE 0.4 MG/ML 1 ML VIAL IV PRN (17:59)
[2024-10-10] MEDS ORDERED: ACETAMINOPHEN TAB 325 MG TAB PO PRN (17:59)
[2024-10-10] MEDS: ONDANSETRON 4 MG/2 ML VIAL IVP PRN (22:37)
[2024-10-10] MEDS: levETIRAcetam 500 MG TAB PO SCH (22:40)
[2024-10-10] MEDS: TOPIRAMATE 25 MG TAB PO SCH (22:41)
[2024-10-10] MEDS: PANTOPRAZOLE 40 MG TABLET PO SCH (23:36)
[2024-10-10] MEDS: clonazePAM 1 MG TAB PO SCH (23:37)
[2024-10-11] MEDS: LEVOTHYROXINE 100 MCG TAB PO SCH (05:39)
[2024-10-11 06:23] LABS: Anisocytosis Slight; Basophils % (A) 0 %; Eosinophils % (A) 0 %; HCT 38.3 % (34.0-46.0); HGB 11.9 gm/dL (11.4-16.0); Hypochromasia Slight; Lymphocytes # (A) 0.9 k/uL (1.0-4.8); Lymphocytes % (A) 9 %; MCH 27.9 pg (25.0-35.0); MCHC 31.2 g/dL (31.0-37.0); MCV 89.6 fL (80.0-100.0); Mean Platelet Volume 10.4; Monocytes # (A) 0.8 k/uL (0-1.0); Monocytes % (A) 8 %; Neutrophils # (A) 7.8 k/uL (1.3-7.7); Neutrophils % (A) 81 %; Platelet Count 263 k/uL (150-450); RBC 4.28 m/uL (3.80-5.40); RDW 16.3 % (11.5-15.5); WBC 9.7 k/uL (3.8-10.6)
[2024-10-11 07:05] LABS: Prothrombin Time 99.3 sec (10.0-12.5)
[2024-10-11 07:08] LABS: African American GFR (CKD) 55 (>60 ml/min/1.73 sqM); Anion Gap 6 mmol/L; Blood Urea Nitrogen 17 mg/dL (7-17); Calcium 8.9 mg/dL (8.4-10.2); Carbon Dioxide 20 mmol/L (22-30); Chloride 110 mmol/L (98-107); Glucose 100 mg/dL (74-99); Non-African American GFR(CKD) 48 (>60 ml/min/1.73 sqM); Potassium 3.6 mmol/L (3.5-5.1); Sodium 136 mmol/L (137-145)
[2024-10-11] MEDS: IPRATROPIUM 0.5 MG/2.5 ML NEBU INHALATION SCH (07:46)
[2024-10-11] MEDS: SYMBICORT 160-4.5 MCG INHALER INHALATION SCH (07:46)
[2024-10-11] MEDS ORDERED: BUDESONIDE 0.5 MG/2 ML NEBU INHALATION SCH (08:00)
[2024-10-11] MEDS ORDERED: IPRATROPIUM 0.5 MG/2.5 ML NEBU INHALATION SCH (08:00)
[2024-10-11] MEDS ORDERED: cefTRIAXone 1,000 MG VIAL (IM USE) IM SCH (09:00)
[2024-10-11] MEDS: metFORMIN 500 MG TAB PO SCH (09:50)
[2024-10-11] MEDS: amLODIPine 5 MG TAB PO SCH (09:52)
[2024-10-11] MEDS: MONTELUKAST 10 MG TAB PO SCH (09:52)
[2024-10-11] MEDS: DULoxetine HCL 60 MG CAPSULE.DR PO SCH (09:53)
[2024-10-11] MEDS: clonazePAM 1 MG TAB PO SCH (09:53)
[2024-10-11] MEDS: LOSARTAN 25 MG TAB PO SCH (09:54)
[2024-10-11] MEDS: PREGABALIN 75 MG CAP PO SCH (10:11)
[2024-10-11] MEDS: POTASSIUM CHLORIDE ER 10 MEQ TAB.ER.PRT PO SCH (10:11)
[2024-10-11] MEDS: PHYTONADIONE 10 MG in SODIUM CHLORIDE 0.9% 50 ML IVPB STA (12:30)
--- NOTE | 2024-10-11 15:42 | P.GSCN ---
History of Present Illness Consult date: 10/11/24 Reason for Consult: Sternal fracture status post fall from standing Requesting physician: Ursula Pagan History of present illness: This is a 59-year-old female patient who follows on an outpatient basis for her primary care with Dr. Israel Anderson. She has a past medical history significant for hypertension, hyperlipidemia, seizure disorder, thyroid disorder, chronic ongoing tobacco dependence, COPD with home dependence of oxygen on 2 to 3 L, occasional marijuana use, EtOH use and depression. The patient reports that she is currently homeless and has been living in a motel for about 3 to 4 months. While staying at the motel about a week to week and a half ago she had an episode of dizziness while ambulating to the bathroom and subsequently fell hitting the sink with her arm and chest and landing on her right hip. The patient reports when she got herself up and got back to bed while sitting on the edge of the bed she fell again due to some dizziness. The patient reports she has been not wearing her oxygen since she has been homeless as her oxygen is currently in storage. She denies any recent fever, chills, diarrhea, constipation, headache, visual disturbances, hematemesis, hemoptysis, shortness of breath, palpitations, or syncope. The patient does report that she has been having episodes of nausea and vomiting over the past 2 to 3 days and is unable to to take her medications. The patient presented to the emergency department for further evaluation and treatment recommendations. Initial laboratory results showed a WBC count of 10.6, hemoglobin 13.0, hematocrit 39.9, platelets 280, PT greater than 130, INR greater than 10, PTT 122.4, sodium 134, potassium 2.9, chloride 105, CO2 21, BUN 16, creatinine 0.84, calcium 9.3, magnesium 1.9, and troponin less than 0.012. She was tested for influenza type A, type B, RSV and SARS-CoV-2 which all showed not detected. A urinalysis was completed which shows trace ketones, large blood, moderate leukocytes esterase, urine RBC greater than 182, WBC 22 and urine mucus moderate. Subsequently, due to the patient's recent fall a CT scan of her brain, C-spine without contrast was completed which demonstrated no acute intracranial process, no evidence of cervical spine fracture, and mild multilevel degenerative disc disease. The patient also underwent a CT chest/abdomen/pelvis with contrast which demonstrated a depressed nondisplaced fracture of the lower sternum, none specific mild dependent consolidative changes in the lower lobes, severe bilateral perinephric stranding, mild bilateral hydronephrosis and severe urothrelial wall thickening/hyperenhancement with surrounding inflammation. Subsequently, due to the patient's results on her CT scan of the chest showing a nondisplaced sternal fracture a consult was placed to Dr. Nick Álvarez from cardiothoracic surgery for further evaluation and treatment recommendations. Review of Systems A review of systems was completed was negative except as mentioned in the HPI. Past Medical History Past Medical History: Diabetes Mellitus, Eye Disorder, Fibromyalgia, Hyperlipidemia, Hypertension, Osteoarthritis (OA), Seizure Disorder, Thyroid Disorder, Vascular Disorder Additional Past Medical History / Comment(s): NIDDM type II, last seizure 12/2013, hypothyroid, PVD/PAD, bilateral eyes astigmatic, migraines, palpitations, anemia, chronic cough, seasonal allergies, sinus problems, hemorrhoids, RLS, arthritis in multiple joints, chronic back pain, L sided sciatica, bilateral carpal tunnel syndrome, past fractured tailbone, UTI, occasional urine incontinence, R foot cellulitis/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 Past Anesthesia/Blood Transfusion Reactions: No Reported Reaction Additional Past Anesthesia/Blood Transfusion Reaction / Comm: Pt has received blood in the past without reaction. Past Psychological History: Anxiety, Bipolar, Depression, Panic Disorder Smoking Status: Current every day smoker Past Alcohol Use History: Daily Past Drug Use History: Marijuana - Past Family History Father Family Medical History: COPD Additional Family Medical History / Comment(s): Father of COPD. He was a smoker. Mother Family Medical History: Hypertension Additional Family Medical History / Comment(s): Mother is 87yrs old and healthy. Gallstones Medications and Allergies Home Medications Medication Instructions Recorded Confirmed Type DULoxetine HCL [Cymbalta] 60 mg PO BID 03/23/14 10/10/24 History Montelukast [Singulair] 10 mg PO DAILY 03/23/14 10/10/24 History Pregabalin [Lyrica] 75 mg PO BID 03/23/14 10/10/24 History clonazePAM [Clonazepam] 1 mg PO DAILY 09/04/16 10/10/24 History clonazePAM [Clonazepam] 2 mg PO HS 09/04/16 10/10/24 History metFORMIN HCL [Glucophage] 500 mg PO DAILY 09/04/16 10/10/24 History rOPINIRole HCL [Requip] 2 mg PO HS 12/15/19 10/10/24 History Atorvastatin [Lipitor] 40 mg PO HS 10/10/24 10/10/24 History Budesonide [Pulmicort] 0.5 mg INHALATION RT-BID 10/10/24 10/10/24 History Doxycycline Monohydrate 100 mg PO BID 10/10/24 10/10/24 History Fluticasone/Umeclidin/Vilanter 1 puff INHALATION RT-DAILY 10/10/24 10/10/24 History [Trelegy Ellipta 200-62.5-25] Levothyroxine Sodium [Synthroid] 100 mcg PO DAILY 10/10/24 10/10/24 History Losartan [Cozaar] 25 mg PO DAILY 10/10/24 10/10/24 History Omeprazole [PriLOSEC] 40 mg PO DAILY 10/10/24 10/10/24 History Potassium Chloride [Klor-Con M10] 10 meq PO DAILY 10/10/24 10/10/24 History Rivastigmine Tartrate 3 mg PO DAILY 10/10/24 10/10/24 History [Rivastigmine] Topiramate [Topamax] 75 mg PO BID 10/10/24 10/10/24 History Warfarin Sodium [Jantoven] 3.75 mg PO Q48H 10/10/24 10/10/24 History Warfarin Sodium [Jantoven] 7.5 mg PO Q48H 10/10/24 10/10/24 History amLODIPine [Norvasc] 5 mg PO DAILY 10/10/24 10/10/24 History levETIRAcetam [Keppra] 500 mg PO BID 10/10/24 10/10/24 History Allergies Allergy/AdvReac Type Severity Reaction Status Date / Time No Known Allergies Allergy Verified 10/10/24 15:44 Surgical - Exam Vital Signs Temp Pulse Resp BP Pulse Ox 97.7 F 68 20 154/82 96 10/10/24 13:00 10/10/24 13:00 10/10/24 13:00 10/10/24 13:00 10/10/24 13:00 - General well developed, well nourished, no distress, no pain, chronically ill - Eyes PERRL, normal ocular movement, no pale, no icteric - ENT normal pinna, normal nares, normal mucosa, no hearing loss, no congestion, poor long-term - Neck Neck is supple, no lymphadenopathy. no masses, no bruits, trachea midline, no venous distension - Respiratory Lung sounds essentially clear throughout, diminished to her bilateral lower lobes. Respirations are symmetrical and nonlabored. Oxygen saturations are 96% on 3 L nasal cannula. - Cardiovascular Regular rhythm and rate. S1 and S2 present, negative for S3, gallop or murmur. No edema present. - Abdomen Abdomen is soft, nontender and nondistended. Active bowel sounds present all 4 abdominal quadrants. No guarding or rigidity. No organomegaly appreciated. - Genitourinary Deferred - Rectum Deferred - Integumentary Skin is warm and dry. No clubbing or cyanosis is present. Ecchymosis to her left forearm and right hip, soft and nontender to palpate. no rash, no growths - Neurologic No focal deficits. - Musculoskeletal Moves all 4 extremities with equal strength bilateral. - Psychiatric oriented to time, oriented to person, oriented to place, speech is normal, memory intact Results - Labs 10/11/24 05:41 10/11/24 05:41 Abnormal Lab Results - Last 24 Hours (Table) 10/10/24 10/10/24 10/10/24 Range/Units 13:50 13:50 13:50 RDW 16.3 H (11.5-15.5) % Neutrophils # 8.3 H (1.3-7.7) k/uL Lymphocytes # (1.0-4.8) k/uL PT >130.0 H (10.0-12.5) sec INR >10.0 H* (<1.2) APTT 122.4 H* (22.0-30.0) sec Sodium 134 L (137-145) mmol/L Potassium 2.9 L (3.5-5.1) mmol/L Chloride (98-107) mmol/L Carbon Dioxide 21 L (22-30) mmol/L Creatinine (0.52-1.04) mg/dL Glucose 133 H (74-99) mg/dL Amylase <30 L (30-110) U/L Lipase 13 L (23-300) U/L Urine Appearance (Clear) Urine Protein (Negative) Urine Ketones (Negative) Urine Blood (Negative) Ur Leukocyte Esterase (Negative) Urine RBC (0-5) /hpf Urine WBC (0-5) /hpf Ur Squamous Epith Cells (0-4) /hpf Urine Mucus (None) /hpf 10/10/24 10/11/24 10/11/24 Range/Units 16:15 05:41 05:41 RDW 16.3 H (11.5-15.5) % Neutrophils # 7.8 H (1.3-7.7) k/uL Lymphocytes # 0.9 L (1.0-4.8) k/uL PT 99.3 H (10.0-12.5) sec INR 10.0 H* (<1.2) APTT (22.0-30.0) sec Sodium (137-145) mmol/L Potassium (3.5-5.1) mmol/L Chloride (98-107) mmol/L Carbon Dioxide (22-30) mmol/L Creatinine (0.52-1.04) mg/dL Glucose (74-99) mg/dL Amylase (30-110) U/L Lipase (23-300) U/L Urine Appearance Cloudy H (Clear) Urine Protein 1+ H (Negative) Urine Ketones Trace H (Negative) Urine Blood Large H (Negative) Ur Leukocyte Esterase Moderate H (Negative) Urine RBC >182 H (0-5) /hpf Urine WBC 22 H (0-5) /hpf Ur Squamous Epith Cells 10 H (0-4) /hpf Urine Mucus Moderate H (None) /hpf 10/11/24 Range/Units 05:41 RDW (11.5-15.5) % Neutrophils # (1.3-7.7) k/uL Lymphocytes # (1.0-4.8) k/uL PT (10.0-12.5) sec INR (<1.2) APTT (22.0-30.0) sec Sodium 136 L (137-145) mmol/L Potassium (3.5-5.1) mmol/L Chloride 110 H (98-107) mmol/L Carbon Dioxide 20 L (22-30) mmol/L Creatinine 1.24 H (0.52-1.04) mg/dL Glucose 100 H (74-99) mg/dL Amylase (30-110) U/L Lipase (23-300) U/L Urine Appearance (Clear) Urine Protein (Negative) Urine Ketones (Negative) Urine Blood (Negative) Ur Leukocyte Esterase (Negative) Urine RBC (0-5) /hpf Urine WBC (0-5) /hpf Ur Squamous Epith Cells (0-4) /hpf Urine Mucus (None) /hpf Diabetes panel 10/10/24 10/11/24 Range/Units 13:50 05:41 Sodium 134 L 136 L (137-145) mmol/L Potassium 2.9 L 3.6 (3.5-5.1) mmol/L Chloride 105 110 H (98-107) mmol/L Carbon Dioxide 21 L 20 L (22-30) mmol/L BUN 16 17 (7-17) mg/dL Creatinine 0.84 1.24 H (0.52-1.04) mg/dL Glucose 133 H 100 H (74-99) mg/dL Calcium 9.3 8.9 (8.4-10.2) mg/dL AST 16 (14-36) U/L ALT 11 (4-34) U/L Alkaline Phosphatase 98 (38-126) U/L Total Protein 6.6 (6.3-8.2) g/dL Albumin 3.7 (3.5-5.0) g/dL Calcium panel 10/10/24 10/11/24 Range/Units 13:50 05:41 Calcium 9.3 8.9 (8.4-10.2) mg/dL Albumin 3.7 (3.5-5.0) g/dL Pituitary panel 10/10/24 10/11/24 Range/Units 13:50 05:41 Sodium 134 L 136 L (137-145) mmol/L Potassium 2.9 L 3.6 (3.5-5.1) mmol/L Chloride 105 110 H (98-107) mmol/L Carbon Dioxide 21 L 20 L (22-30) mmol/L BUN 16 17 (7-17) mg/dL Creatinine 0.84 1.24 H (0.52-1.04) mg/dL Glucose 133 H 100 H (74-99) mg/dL Calcium 9.3 8.9 (8.4-10.2) mg/dL Adrenal panel 10/10/24 10/11/24 Range/Units 13:50 05:41 Sodium 134 L 136 L (137-145) mmol/L Potassium 2.9 L 3.6 (3.5-5.1) mmol/L Chloride 105 110 H (98-107) mmol/L Carbon Dioxide 21 L 20 L (22-30) mmol/L BUN 16 17 (7-17) mg/dL Creatinine 0.84 1.24 H (0.52-1.04) mg/dL Glucose 133 H 100 H (74-99) mg/dL Calcium 9.3 8.9 (8.4-10.2) mg/dL Total Bilirubin 0.9 (0.2-1.3) mg/dL AST 16 (14-36) U/L ALT 11 (4-34) U/L Alkaline Phosphatase 98 (38-126) U/L Total Protein 6.6 (6.3-8.2) g/dL Albumin 3.7 (3.5-5.0) g/dL - Imaging CT scan - abdomen: report reviewed, image reviewed CT scan - chest: report reviewed, image reviewed CT scan - pelvis: report reviewed, image reviewed Assessment and Plan Assessment: Sternal fracture, status post fall from standing Abnormal INR, greater than 10.0 on admission Pyelitis History of seizure disorder History of hypertension History of hyperlipidemia Hypothyroid COPD with home oxygen, not currently using over the last 4 to 5 months due to being homeless Chronic ongoing tobacco dependence EtOH abuse Occasional marijuana use Depression Plan: The patient was seen and examined at her bedside in the emergency department. Her chart and diagnostics were reviewed. Her case was discussed in detail with Dr. Nick Álvarez from cardiothoracic surgery. Dr. Álvarez did review the CT scan of the chest. No surgical intervention at this time. Encourage use of incentive spirometry 10 times every hour while awake. Pain control per current as needed orders. Medical management other comorbidities per primary care service. We will continue to follow the patient on an as-needed basis. Please feel free to reconsult if any further questions regarding her sternal fracture. Thank you for this consult. I have personally seen and examined the patient, performed the documentation and the assessment and plan as written. Number of minutes spent on the visit: 30. SLIME Mcgee
[2024-10-11] MEDS: MORPHINE SULFATE 4 MG/ML SYRINGE IV PRN (16:11)
[2024-10-11 16:13] LABS: INR 2.1 (<1.2); Prothrombin Time 20.9 sec (10.0-12.5)
[2024-10-11 16:34] LABS: Glucose,Whole Blood 100 mg/dL (70-110)
[2024-10-11 20:26] LABS: Glucose,Whole Blood 123 mg/dL (70-110)
[2024-10-11] MEDS: ATORVASTATIN 40 MG TAB PO SCH (21:11)
[2024-10-11] MEDS: WARFARIN 2.5 MG TAB PO ONE (21:11)
--- NOTE | 2024-10-11 21:32 | P.CONS ---
History of Present Illness - Reason for Consult Consult date: 10/11/24 UTI Requesting physician: Israel Anderson - Chief Complaint Nausea vomiting x 3 days - History of Present Illness Patient is a 59-year-old female with a past medical history significant for diabetes mellitus hypertension osteomyelitis seizure disorder patient presenting to the hospital for evaluation of nausea and vomiting and the patient mention she has not been able to do tolerate any liquid for the last 3 days and has not been able to take her seizure medication because of that patient admitted also have a fall about a week ago hitting her right hip in that area patient representation to the hospital was afebrile and no fever have recorded subsequently patient was nontachycardic hypotensive mildly hypoxic is currently on 3 L current oxygen patient did have a white count of 10.6 INR was more than 10 creatinine was normal liver enzymes are normal urine has been cloudy with significant hematuria and mild pyuria influenza RSV COVID testing was negative patient did have a CT of the chest abdominal pelvis which did shows depressed lower sternal none displaced fracture of the lower sternum severe bilateral perinephric stranding mild bilateral hydronephrosis and severe ureteral wall thickening with surrounding inflammation findings are felt to reflect severe pyelitis patient was started on Rocephin infectious disease was consulted for further management of antibiotic therapy Review of Systems Positive point and negatives has been mentioned in the HPI, complete review of systems was performed and all other systems are negative Past Medical History Past Medical History: Diabetes Mellitus, Eye Disorder, Fibromyalgia, Hypertension, Osteoarthritis (OA), Seizure Disorder, Thyroid Disorder, Vascular Disorder Additional Past Medical History / Comment(s): NIDDM type II, last seizure 12/2013, hypothyroid, PVD/PAD, bilateral eyes astigmatic, migraines, pa lpitations, anemia, chronic cough, seasonal allergies, sinus problems, hemorrhoids, RLS, arthritis in multiple joints, chronic back pain, L sided sciatica, bilateral carpal tunnel syndrome, past fractured tailbone, UTI, occasional urine incontinence, R foot cellulitis/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 Past Anesthesia/Blood Transfusion Reactions: No Reported Reaction Additional Past Anesthesia/Blood Transfusion Reaction / Comm: Pt has received blood in the past without reaction. Past Psychological History: Anxiety, Bipolar, Depression, Panic Disorder Smoking Status: Current every day smoker Past Alcohol Use History: Daily Past Drug Use History: Marijuana - Past Family History Father Family Medical History: COPD Additional Family Medical History / Comment(s): Father of COPD. He was a smoker. Mother Family Medical History: No Reported History Additional Family Medical History / Comment(s): Mother is 87yrs old and healthy. Medications and Allergies Home Medications Medication Instructions Recorded Confirmed Type DULoxetine HCL [Cymbalta] 60 mg PO BID 03/23/14 10/10/24 History Montelukast [Singulair] 10 mg PO DAILY 03/23/14 10/10/24 History Pregabalin [Lyrica] 75 mg PO BID 03/23/14 10/10/24 History clonazePAM [Clonazepam] 1 mg PO DAILY 09/04/16 10/10/24 History clonazePAM [Clonazepam] 2 mg PO HS 09/04/16 10/10/24 History metFORMIN HCL [Glucophage] 500 mg PO DAILY 09/04/16 10/10/24 History rOPINIRole HCL [Requip] 2 mg PO HS 12/15/19 10/10/24 History Atorvastatin [Lipitor] 40 mg PO HS 10/10/24 10/10/24 History Budesonide [Pulmicort] 0.5 mg INHALATION RT-BID 10/10/24 10/10/24 History Doxycycline Monohydrate 100 mg PO BID 10/10/24 10/10/24 History Fluticasone/Umeclidin/Vilanter 1 puff INHALATION RT-DAILY 10/10/24 10/10/24 History [Trelegy Ellipta 200-62.5-25] Levothyroxine Sodium [Synthroid] 100 mcg PO DAILY 10/10/24 10/10/24 History Losartan [Cozaar] 25 mg PO DAILY 10/10/24 10/10/24 History Omeprazole [PriLOSEC] 40 mg PO DAILY 10/10/24 10/10/24 History Potassium Chloride [Klor-Con M10] 10 meq PO DAILY 10/10/24 10/10/24 History Rivastigmine Tartrate 3 mg PO DAILY 10/10/24 10/10/24 History [Rivastigmine] Topiramate [Topamax] 75 mg PO BID 10/10/24 10/10/24 History Warfarin Sodium [Jantoven] 3.75 mg PO Q48H 10/10/24 10/10/24 History Warfarin Sodium [Jantoven] 7.5 mg PO Q48H 10/10/24 10/10/24 History amLODIPine [Norvasc] 5 mg PO DAILY 10/10/24 10/10/24 History levETIRAcetam [Keppra] 500 mg PO BID 10/10/24 10/10/24 History Allergies Allergy/AdvReac Type Severity Reaction Status Date / Time No Known Allergies Allergy Verified 10/10/24 15:44 Physical Exam Vitals: Vital Signs Temp Pulse Resp BP Pulse Ox 10/11/24 09:42 66 18 132/81 96 10/11/24 07:55 60 10/11/24 07:49 98 10/11/24 07:46 77 10/11/24 06:23 98.0 F 50 L 18 135/48 96 10/11/24 05:40 85 10/11/24 03:50 98.3 F 50 L 18 140/65 95 10/11/24 02:10 98.9 F 85 18 139/75 94 L 10/10/24 23:36 98.7 F 63 18 165/74 95 10/10/24 21:31 98.1 F 68 18 144/77 92 L 10/10/24 17:35 70 16 156/78 92 L 10/10/24 14:39 52 L 10/10/24 14:32 51 L 10/10/24 13:00 97.7 F 68 20 154/82 96 GENERAL DESCRIPTION: Middle-aged female lying in bed, no distress. No tachypnea or accessory muscle of respiration use. HEENT: Shows Pallor , no scleral icterus. Oral mucous membrane is dry. NECK: Trachea central, no thyromegaly. LUNGS: Unlabored breathing. Clear to auscultation anteriorly. No wheeze or crackle. HEART: S1, S2, regular rate and rhythm. No loud murmur ABDOMEN: Soft, epigastric tenderness EXTREMITIES: No edema of feet. SKIN: No rash, no masses palpable. NEUROLOGICAL: The patient is awake, alert, oriented x3, mood and affect normal. Results CBC & Chem 7: 10/11/24 05:41 10/11/24 05:41 Labs: Abnormal Lab Results - Last 24 Hours (Table) 10/10/24 10/10/24 10/10/24 Range/Units 13:50 13:50 13:50 RDW 16.3 H (11.5-15.5) % Neutrophils # 8.3 H (1.3-7.7) k/uL Lymphocytes # (1.0-4.8) k/uL PT >130.0 H (10.0-12.5) sec INR >10.0 H* (<1.2) APTT 122.4 H* (22.0-30.0) sec Sodium 134 L (137-145) mmol/L Potassium 2.9 L (3.5-5.1) mmol/L Chloride (98-107) mmol/L Carbon Dioxide 21 L (22-30) mmol/L Creatinine (0.52-1.04) mg/dL Glucose 133 H (74-99) mg/dL Amylase <30 L (30-110) U/L Lipase 13 L (23-300) U/L Urine Appearance (Clear) Urine Protein (Negative) Urine Ketones (Negative) Urine Blood (Negative) Ur Leukocyte Esterase (Negative) Urine RBC (0-5) /hpf Urine WBC (0-5) /hpf Ur Squamous Epith Cells (0-4) /hpf Urine Mucus (None) /hpf 10/10/24 10/11/24 10/11/24 Range/Units 16:15 05:41 05:41 RDW 16.3 H (11.5-15.5) % Neutrophils # 7.8 H (1.3-7.7) k/uL Lymphocytes # 0.9 L (1.0-4.8) k/uL PT 99.3 H (10.0-12.5) sec INR 10.0 H* (<1.2) APTT (22.0-30.0) sec Sodium (137-145) mmol/L Potassium (3.5-5.1) mmol/L Chloride (98-107) mmol/L Carbon Dioxide (22-30) mmol/L Creatinine (0.52-1.04) mg/dL Glucose (74-99) mg/dL Amylase (30-110) U/L Lipase (23-300) U/L Urine Appearance Cloudy H (Clear) Urine Protein 1+ H (Negative) Urine Ketones Trace H (Negative) Urine Blood Large H (Negative) Ur Leukocyte Esterase Moderate H (Negative) Urine RBC >182 H (0-5) /hpf Urine WBC 22 H (0-5) /hpf Ur Squamous Epith Cells 10 H (0-4) /hpf Urine Mucus Moderate H (None) /hpf 10/11/24 Range/Units 05:41 RDW (11.5-15.5) % Neutrophils # (1.3-7.7) k/uL Lymphocytes # (1.0-4.8) k/uL PT (10.0-12.5) sec INR (<1.2) APTT (22.0-30.0) sec Sodium 136 L (137-145) mmol/L Potassium (3.5-5.1) mmol/L Chloride 110 H (98-107) mmol/L Carbon Dioxide 20 L (22-30) mmol/L Creatinine 1.24 H (0.52-1.04) mg/dL Glucose 100 H (74-99) mg/dL Amylase (30-110) U/L Lipase (23-300) U/L Urine Appearance (Clear) Urine Protein (Negative) Urine Ketones (Negative) Urine Blood (Negative) Ur Leukocyte Esterase (Negative) Urine RBC (0-5) /hpf Urine WBC (0-5) /hpf Ur Squamous Epith Cells (0-4) /hpf Urine Mucus (None) /hpf Assessment and Plan (1) Pyelitis Current Visit: Yes Status: Acute Code(s): N12 - TUBULO-INTERSTITIAL NEPHRITIS, NOT SPCF ACUTE OR CHRONIC SNOMED Code(s): 86372112 Plan: 1patient presented to hospital with intractable nausea vomiting over the last 3 days patient did have a positive significant blood vomiting on the CT suggestive of pyelitis likely from enteric gram-negative pathogen. 2we will switch Rocephin to 2 g daily while waiting for the culture to finalize we will follow on clinical condition and cultures to further adjust medication i f needed Thank you for this consultation we will follow the patient along with you Dictation was produced using [employer] dictation software. please excuse any grammatical, word or spelling errors. Time with Patient: Greater than 30
[2024-10-11] MEDS: DONEPEZIL 5 MG TAB PO SCH (21:34)
--- NOTE | 2024-10-12 04:02 | HP ---
HISTORY AND PHYSICAL HISTORY OF PRESENT ILLNESS: A 59-year-old white female, who was admitted to the hospital with pyelonephritis and Coumadin toxicity. She has been confused. She fell. She broke her ribs apparently, not been able to take her seizure medications. Reports diarrhea, abdominal discomfort. She fell a week ago hitting her right hip and her head. She is on Coumadin toxicity. HOME MEDICINES: 1. Clonazepam. 2. Metformin. 3. Requip. 4. Lipitor. 5. Pulmicort. 6. Cymbalta. 7. Singulair. 8. Lyrica. 9. Trelegy inhaler. 10.Synthroid 100 mcg daily. 11.Cozaar 25 daily. 12.Prilosec 40 daily. 13.Rivastigmine 3 mg daily. 14.Topamax 75 b.i.d. 15.Coumadin alternating 3.75 and 7.5. 16.Norvasc 5 mg daily. 17.Keppra 500 b.i.d. ALLERGIES: Negative REVIEW OF SYSTEMS: A 14-point review of systems negative except for mentioned above. PAST MEDICAL HISTORY: Diabetes mellitus, fibromyalgia, hypertension, osteoarthritis, seizure disorder, thyroid disorder, vascular disorder, migraine, palpitations, anemia, seasonal allergies, hemorrhoids, restless legs syndrome, bilateral carpal tunnel syndrome. PAST SURGICAL HISTORY: Orthopedic surgery, uterine ablation, right 3rd toe amputation, colonoscopy, teeth extractions. FAMILY HISTORY: Father with COPD. Mother is healthy. PHYSICAL EXAMINATION: VITAL SIGNS: Temp 97.7, temp 97.7, blood pressure 156/78, O2 of 92%, pulse 70, respiratory rate 16 to 18. CARDIOVASCULAR: S1, S2. LUNGS: Scattered wheeze and rhonchi. HEENT: Normocephalic, atraumatic. Pupils equal, round, reactive. BACK: Normal range of motion. NEUROLOGIC: Alert and oriented x3. PSYCH: Fair mood and affect. SKIN: Warm, dry, intact. She came in with pyelonephritis, rib fractures, hypokalemia, Coumadin toxicity, dehydration. Prognosis guarded. Give her fluids. We reversed Coumadin toxicity with multiple doses of Kayexalate. Pyelonephritis, remain on IV antibiotics. Sternum fracture, Surgery has seen. Prognosis guarded. Please see further orders. MMODL / IJN: [id number] /
[2024-10-12 06:01] LABS: Glucose,Whole Blood 107 mg/dL (70-110)
[2024-10-12 06:23] LABS: INR 1.2 (<1.2); Prothrombin Time 12.7 sec (10.0-12.5)
[2024-10-12 11:50] LABS: Glucose,Whole Blood 111 mg/dL (70-110)
--- NOTE | 2024-10-12 13:58 | P.PN ---
Subjective Progress Note Date: 10/12/24 Principal diagnosis: Reason for follow-up is pyelitis Patient is a 59-year-old female with a past medical history significant for diabetes mellitus hypertension osteomyelitis seizure disorder patient presenting to the hospital for evaluation of nausea and vomiting patient did have falls CT did shows evidence of depressed sternal fracture and also features of cystitis with a positive UA prompted this consultation. On today's evaluation that is 10/12/2024, the patient continues to be afebrile, the patient is on 3 L nasal oxygen and breathing comfortably, the Pt is complaining of lower central chest pain patient denies having any nausea or vomiting and no diarrhea. Patient did have a INR of 1.2 no CBC was done today urine cultures currently pending Objective - Vital Signs Vital signs: Vital Signs Temp 97.9 F 10/12/24 11:18 Pulse 69 10/12/24 11:18 Resp 16 10/12/24 11:18 BP 135/61 10/12/24 11:18 Pulse Ox 92 L 10/12/24 11:18 FiO2 Intake & Output 10/11/24 10/12/24 10/12/24 18:59 06:59 18:59 Intake Total 120 260 150 Output Total 600 Balance 120 -340 150 Weight 63.503 kg 63.4 kg Intake: IV 20 Invasive Line 1 20 Oral 120 240 150 Output: Urine 600 - Exam GENERAL DESCRIPTION: Middle-age female lying in bed in no distress RESPIRATORY SYSTEM: Unlabored breathing , decreased breath sounds at bases HEART: S1 S2 regular rate and rhythm , ABDOMEN: Soft , no tenderness EXTREMITIES: No edema feet - Labs CBC & Chem 7: 10/11/24 05:41 10/11/24 05:41 Labs: Abnormal Lab Results - Last 24 Hours (Table) 10/11/24 10/11/24 10/12/24 Range/Units 15:48 20:23 05:49 PT 20.9 H 12.7 H (10.0-12.5) sec INR 2.1 H 1.2 H (<1.2) POC Glucose (mg/dL) 123 H (70-110) mg/dL 10/12/24 Range/Units 11:49 PT (10.0-12.5) sec INR (<1.2) POC Glucose (mg/dL) 111 H (70-110) mg/dL Microbiology - Last 24 Hours (Table) 10/10/24 16:15 Urine Culture - Final Urine,Voided Assessment and Plan (1) Pyelitis Current Visit: Yes Status: Acute Code(s): N12 - TUBULO-INTERSTITIAL NEPHRITIS, NOT SPCF ACUTE OR CHRONIC SNOMED Code(s): 53011180 Plan: 1patient presented to hospital with intractable nausea vomiting over the last 3 days patient did have a positive significant blood vomiting on the CT suggestive of pyelitis likely from enteric gram-negative pathogen. 2patient to continue with Rocephin to 2 g daily while waiting for the culture to finalize Dictation was produced using [employer] dictation software. please excuse any grammatical, word or spelling errors. Time with Patient: Less than 30
[2024-10-12 16:45] LABS: Glucose,Whole Blood 104 mg/dL (70-110)
[2024-10-12] MEDS: WARFARIN 2.5 MG TAB PO ONE (20:11)
[2024-10-12 20:13] LABS: Glucose,Whole Blood 107 mg/dL (70-110)
[2024-10-13 06:12] LABS: Glucose,Whole Blood 107 mg/dL (70-110)
[2024-10-13 06:51] LABS: INR 1.5 (<1.2); Prothrombin Time 15.8 sec (10.0-12.5)
[2024-10-13 08:48] VITALS: TEMP 98
[2024-10-13 11:19] LABS: Glucose,Whole Blood 121 mg/dL (70-110)
[2024-10-13 12:25] VITALS: BP 121/70; PULSE 73; RESP 16
[2024-10-13] MEDS ORDERED: WARFARIN 3 MG TAB PO ONE (21:00)
[2024-10-13] MEDS ORDERED: AMOXIC-POT CLAV 875-125MG 1 EACH TAB PO SCH (21:00)
--- NOTE | 2024-10-14 04:25 | DS ---
DISCHARGE SUMMARY A 59-year-old white female came to the hospital. Discharged home on 10/13/2024. MEDICATIONS: 1. Aricept 5 mg daily. 2. Tylenol p.r.n. for pain. 3. DuoNeb updrafts q.i.d. 4. Augmentin 875 b.i.d. for a week for UTI. 5. Warfarin treatment is decreased to 3 mg every day. 6. Duloxetine 60 b.i.d. 7. Lyrica 75 b.i.d. 8. Singulair 10 daily. 9. Metformin 500 daily. 10.Klonopin 2 mg at night 1 mg daily. 11.Requip 2 mg daily. 12.Norvasc 5 mg daily. 13.Klor-Con 10 mEq daily. 14.Prilosec 40 mEq daily. 15.Cozaar 25 mg daily. 16.Synthroid 100 mcg daily. 17.Pulmicort 7.5 b.i.d. 18.Lipitor 40 at bedtime. 19.Topamax 75 b.i.d. 20.Keppra 500 b.i.d. 21.Trelegy inhaler daily. CONDITION: Stable. PROGNOSIS: Guarded. Ambulate as tolerated. Fall precautions. DISCHARGE DIAGNOSES: Abnormal INR, Coumadin toxicity, pyelitis, sternal fracture, periodontal abscess, chronic obstructive pulmonary disease, nicotine addiction, neuropathy, cervical lumbar osteoarthritis. The patient came in. Surgery saw her for chest sternal fracture. Nothing really they could do for. Just gave anti-inflammatories. She was treated for pyelonephritis. Coumadin toxicity was reversed. Low dose of Coumadin was given. The patient stabilized over the next few days and was sent home in stable condition. To follow up as an outpatient. She has a walker at home. Prognosis guarded. MMODL / IJN: [id number] /
--- NOTE | 2024-10-14 08:15 | PN ---
PROGRESS NOTE SUBJECTIVE: The patient better. PHYSICAL EXAMINATION: GENERAL: She is alert and oriented x3. CARDIOVASCULAR: S1, S2. LUNGS: Transmitted upper sounds. Scattered wheeze. GI: Soft. HEMATOLOGY: Negative Homans. VITAL SIGNS: Temperature is 97.9, pulse 69, respiratory rate 16 to 18, blood pressure 130s over 50s, O2 of 92% on 2 L. EXTREMITIES: No edema. LABORATORY DATA: BUN is 17, creatinine 1.24, Sodium 135, potassium 3.5. Hemoglobin 11.9. ASSESSMENT: 1. Pyelonephritis, pyelitis, interstitial nephritis, acute on chronic. 2. Intractable nausea and vomiting over the past 3 days, positive significant amount of blood in vomiting and CAT scan shows pyelonephritis, gram-negative pathogen. Continue with IV pyelonephritis treatment, breathing treatments reversed. Coumadin toxicity is reversed. Started her back on a lower dose of Coumadin and rehydrating her. Her rib fracture, sternal fractures, has been seen by a cardiac surgeon, cleared her. Discussed with her the pain will be there for many weeks. Prognosis guarded. MMODL / IJN: [id number] /
--- NOTE | 2024-10-14 08:56 | P.PN ---
Subjective Progress Note Date: 10/13/24 Principal diagnosis: Reason for follow-up is pyelitis Patient is a 59-year-old female with a past medical history significant for diabetes mellitus hypertension osteomyelitis seizure disorder patient presenting to the hospital for evaluation of nausea and vomiting patient did have falls CT did shows evidence of depressed sternal fracture and also features of cystitis with a positive UA prompted this consultation. On today's evaluation that is 10/13/2024, patient has been afebrile, patient is breathing comfortably and is currently on room air, patient denies having any significant cough still complaining of midsternal chest pain no nausea vomiting or diarrhea. Patient INR is 1.5 no CBC was done today culture have been negative so far Objective - Vital Signs Vital signs: Vital Signs Temp 98 F 10/13/24 08:00 Pulse 73 10/13/24 12:00 Resp 16 10/13/24 12:00 BP 121/70 10/13/24 12:00 Pulse Ox 94 L 10/13/24 12:00 FiO2 Intake & Output 10/12/24 10/13/24 10/13/24 18:59 06:59 18:59 Intake Total 750 20 320 Output Total 750 Balance 750 -730 320 Weight 66.6 kg Intake: IV 20 20 Invasive Line 1 20 20 Oral 750 300 Output: Urine 750 Other: # Voids 1 1 # Bowel Movements 1 - Exam GENERAL DESCRIPTION: Middle-age female lying in bed in no distress RESPIRATORY SYSTEM: Unlabored breathing , decreased breath sounds at bases HEART: S1 S2 regular rate and rhythm , ABDOMEN: Soft , no tenderness EXTREMITIES: No edema feet - Labs CBC & Chem 7: 10/11/24 05:41 10/11/24 05:41 Labs: Abnormal Lab Results - Last 24 Hours (Table) 10/13/24 10/13/24 Range/Units 06:08 11:17 PT 15.8 H (10.0-12.5) sec INR 1.5 H (<1.2) POC Glucose (mg/dL) 121 H (70-110) mg/dL Assessment and Plan (1) Pyelitis Status: Acute Code(s): N12 - TUBULO-INTERSTITIAL NEPHRITIS, NOT SPCF ACUTE OR CHRONIC SNOMED Code(s): 59259761 Plan: 1patient presented to hospital with intractable nausea vomiting over the last 3 days patient did have a positive significant blood vomiting on the CT suggestive of pyelitis likely from enteric gram-negative pathogen. 2patient is afebrile culture has been done so far we will continue Rocephin while inpatient and transition to oral Ceftin on discharge Dictation was produced using [employer] dictation software. please excuse any grammatical, word or spelling errors. Time with Patient: Less than 30
== END 2024-10-13 14:52 | disposition home or self-care (01) | DRG 463 ==
LOC: EC 12:58 → 3SCARD 18:03 → OBSVTOIN 18:04 → 3SCARD 20:13
PROVIDERS: ADMIT Family Medicine; ATTEND Family Medicine
DX: N13.6 Pyonephrosis (principal); T45.515A Adverse effect of anticoagulants, initial encounter; S22.20XA Unspecified fracture of sternum, initial encounter for closed fracture; J44.9 Chronic obstructive pulmonary disease, unspecified; G40.909 Epilepsy, unspecified, not intractable, without status epilepticus; Z59.00 Homelessness unspecified; F17.210 Nicotine dependence, cigarettes, uncomplicated; E78.5 Hyperlipidemia, unspecified; I10 Essential (primary) hypertension; E03.9 Hypothyroidism, unspecified; Z79.890 Hormone replacement therapy; W18.30XA Fall on same level, unspecified, initial encounter; Z11.52 Encounter for screening for COVID-19; M47.816 Spondylosis without myelopathy or radiculopathy, lumbar region; I95.9 Hypotension, unspecified; G89.29 Other chronic pain; M54.9 Dorsalgia, unspecified; K05.219 Aggressive periodontitis, localized, unspecified severity; S22.39XA Fracture of one rib, unspecified side, initial encounter for closed fracture; E11.42 Type 2 diabetes mellitus with diabetic polyneuropathy; E11.51 Type 2 diabetes mellitus with diabetic peripheral angiopathy without gangrene; E11.69 Type 2 diabetes mellitus with other specified complication; D64.9 Anemia, unspecified; F10.10 Alcohol abuse, uncomplicated; F31.9 Bipolar disorder, unspecified; G25.81 Restless legs syndrome; M79.7 Fibromyalgia; R79.1 Abnormal coagulation profile; Z79.01 Long term (current) use of anticoagulants; Z59.01 Sheltered homelessness; Z79.84 Long term (current) use of oral hypoglycemic drugs; Z79.899 Other long term (current) drug therapy; Z82.49 Family history of ischemic heart disease and other diseases of the circulatory system
CPT/HCPCS: 36415; 70450; 71260; 72125; 74177; 80048; 80053; 81001; 82150; 83690; 83735; 84484; 85025; 85610; 85730; 87086; 87636; 93005; 94640; 94760; 96361; 96365; 96366; 96367; 96375; 96376; 99285

== ENCOUNTER 2025-02-22 12:46 | Emergency (ER) | payer OTHER ==
--- NOTE | 2025-02-22 13:50 | XR ---
EXAMINATION TYPE: XR chest 2V DATE OF EXAM: 02/22/2025 CLINICAL INDICATION: Female, 59 years old with history of pain, TECHNIQUE: Frontal and lateral views of the chest are obtained. COMPARISON: CT October 10, 2024 FINDINGS: There are small to tiny bilateral pleural effusions and bibasilar opacities favoring atele ctasis. Underlying emphysematous change is present. The cardiac silhouette size is upper limits of n ormal. The osseous structures are intact. IMPRESSION: Chronic emphysematous change with small to tiny bilateral pleural effusions and bibasilar atelectasis [facility], , 02/22/2025 1:47 PM
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
[2025-02-22 14:34] VITALS: BP 126/82; PULSE 70; RESP 18; TEMP 97.9
== END 2025-02-22 14:34 | disposition home or self-care (01) ==
LOC: EC 12:46
DX: S20.211A Contusion of right front wall of thorax, initial encounter (principal); F17.200 Nicotine dependence, unspecified, uncomplicated; Z88.6 Allergy status to analgesic agent; Y04.8XXA Assault by other bodily force, initial encounter
CPT/HCPCS: 71046; 99284

== ENCOUNTER 2025-06-02 18:11 | Emergency (ER) | payer OTHER ==
--- NOTE | 2025-06-02 19:32 | ED ---
Psych HPI - General Source: patient Mode of arrival: ambulatory <Teodora Moore - Last Filed: 06/02/25 19:32> <Randal Callejas - Last Filed: 06/10/25 19:45> - General Chief Complaint: Psychiatric Symptoms Stated Complaint: petition Time Seen by Provider: 06/02/25 19:32 - History of Present Illness Initial Comments: Quick note: 60-year-old female brought in by police. Patient is petitioned because she was making statements about wanting to be . She denies any suicidal or homicidal ideation at this time. (Teodora Moore) - Related Data Home Medications Medication Instructions Recorded Confirmed DULoxetine HCL [Cymbalta] 60 mg PO BID 03/23/14 06/03/25 Montelukast [Singulair] 10 mg PO DAILY 03/23/14 06/03/25 clonazePAM [Clonazepam] 1 mg PO DAILY 09/04/16 06/03/25 clonazePAM [Clonazepam] 2 mg PO HS 09/04/16 06/03/25 rOPINIRole HCL [Requip] 2 mg PO HS 12/15/19 06/03/25 Fluticasone/Umeclidin/Vilanter 1 puff INHALATION RT-DAILY 10/10/24 06/03/25 [Trelegy Ellipta 200-62.5-25] Levothyroxine Sodium [Synthroid] 100 mcg PO DAILY 10/10/24 06/03/25 Losartan [Cozaar] 25 mg PO DAILY 10/10/24 06/03/25 Omeprazole [PriLOSEC] 40 mg PO DAILY 10/10/24 06/03/25 Topiramate [Topamax] 75 mg PO BID 10/10/24 06/03/25 Lumateperone Tosylate [Caplyta] 10.5 mg PO HS 06/03/25 06/03/25 Melatonin 1 mg PO HS 06/03/25 06/03/25 Pregabalin [Lyrica] 100 mg PO BID 06/03/25 06/03/25 Rivastigmine Tartrate [Exelon] 3 mg PO DAILY 06/03/25 06/03/25 SILVER sulfADIAZINE CREAM 1 applic TOPICAL BID 06/03/25 06/03/25 [Silvadene Cream] Warfarin [Coumadin] 3 mg PO DAILY 06/03/25 06/03/25 levETIRAcetam [Keppra] 750 mg PO BID 06/03/25 06/03/25 Allergies Allergy/AdvReac Type Severity Reaction Status Date / Time aspirin AdvReac Nausea & Verified 06/03/25 12:45 Vomiting salt Allergy Unknown Uncoded 06/02/25 18:24 Review of Systems ROS Other: All systems not noted in ROS Statement are negative. <Teodora Moore - Last Filed: 06/02/25 19:32> ROS Other: All systems not noted in ROS Statement are negative. <Randal Callejas - Last Filed: 06/10/25 19:45> ROS Statement: Those systems with pertinent positive or pertinent negative responses have been documented in the HPI. 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 Past Anesthesia/Blood Transfusion Reactions: No Reported Reaction Additional Past Anesthesia/Blood Transfusion Reaction / Comment(s): Pt has received blood in the past without reaction. Past Psychological History: Anxiety, Bipolar, Depression, Panic Disorder Smoking Status: Current every day smoker Past Alcohol Use History: Daily Past Drug Use History: Marijuana - Past Family History Father Family Medical History: COPD Additional Family Medical History / Comment(s): Father of COPD. He was a smoker. Mother Family Medical History: No Reported History Additional Family Medical History / Comment(s): Mother is 87yrs old and healthy. <Teodora Moore - Last Filed: 06/02/25 19:32> General Exam Limitations: no limitations <Teodora Moore - Last Filed: 06/02/25 19:32> General appearance: alert, anxious Head exam: Present: atraumatic, normocephalic Eye exam: Present: normal appearance. Absent: scleral icterus, conjunctival injection Neck exam: Present: normal inspection, full ROM Respiratory exam: Present: normal lung sounds bilaterally. Absent: respiratory distress, wheezes, rales, rhonchi, stridor, accessory muscle use Cardiovascular Exam: Present: regular rate, normal rhythm, normal heart sounds. Absent: systolic murmur, diastolic murmur, rubs, gallop GI/Abdominal exam: Present: soft. Absent: distended, tenderness, guarding, rebound, mass Extremities exam: Present: normal inspection, normal capillary refill Back exam: Present: normal inspection Neurological exam: Present: alert, normal gait Psychiatric exam: Present: agitated. Absent: flat affect, manic, homicidal ideation Skin exam: Present: warm, dry, intact, normal color. Absent: rash <Randal Callejas - Last Filed: 06/10/25 19:45> - General Exam Comments Initial Comments: Visual Physical Exam Vital signs reviewed General: Well-appearing, nontoxic, no acute distress. Head: Normocephalic, atraumatic Eyes: PERRLA, EOMI ENT: Airway patent Chest: Nonlabored breathing Skin: No visual rash, normal skin tone Neuro: Alert and oriented 3 Musculoskeletal: No gross abnormalities (Teodora Moore) Course Vital Signs 06/02/25 06/03/25 06/03/25 18:20 05:20 16:44 Temperature 98.1 F 98.2 F 98.4 F Pulse Rate 74 91 50 L Respiratory 20 17 18 Rate Blood Pressure 134/83 162/84 154/73 O2 Sat by Pulse 95 97 97 Oximetry Procedures - Restraint - Face to Face Restraint Occurrence 1 Patient's Immediate Situation: Endangers self safety, Endangers staff safety Patient's Reaction to the Intervention: Angry, Belligerent, Suspicious, Aggressive, Resistive to care Patient's Medical & Behavioral Condition: Agitated, Paranoid, Suicidal thoughts Need to Continue or Terminate Restraint or Seclusion: Continue Face to Face Eval of Restraint Date: 06/02/25 Face to Face Eval of Restraint Time: 23:10 <Randal Callejas - Last Filed: 06/10/25 19:45> Medical Decision Making <Teodora Moore - Last Filed: 06/02/25 19:32> - Lab Data Result diagrams: 06/02/25 23:17 06/02/25 23:17 <Randal Callejas - Last Filed: 06/10/25 19:45> - Medical Decision Making I performed the quick note portion of this visit, electronically signed Teodora Moore PA-C (Teodora Moore) Patient is a 60-year-old woman here to have psychiatric evaluation. The patient reportedly learned that her significant other was found today and became quite agitated. Also reported to have made statements indicating suicidal ideation including that she would rather be . When I interviewed the patient, she will not discuss the matter with me. Patient not forthcoming regarding the episode. Was pt. sent in by a medical professional or institution (MARYELLEN Donis, CIRCUS TRAIN SUPERVISOR, urgent care, hospital, or residential...) When possible be specific @ -[No] Did you speak to anyone other than the patient for history (EMS, parent, family, police, friend...)? What history was obtained from this source @ -[No] Did you review nursing and triage notes (agree or disagree)? Why? @ -[I reviewed and agree with nursing and triage notes] Were old charts reviewed (outside hosp., previous admission, EMS record, old EKG, old radiological studies, urgent care reports/EKG's, residential records)? Report findings @ -[No old charts were reviewed] Differential Diagnosis (chest pain, altered mental status, abdominal pain women, abdominal pain men, vaginal bleeding, weakness, fever, dyspnea, syncope, headache, dizziness, GI bleed, back pain, seizure, CVA, palpatations, mental health, musculoskeletal)? @ -[Differential Mental Health Depression, anxiety, bipolar, psychosis, schizophrenia, borderline personality, situational depression, adjustment disorder, behavioral disorder, brain tumor, malingering, substance abuse, encephalopathy, medication reaction, dementia, hypothyroidism, degenerative neurologic disorder, lupus.... This is not meant to be all-inclusive list EKG interpreted by me (3pts min.). @ -[As above] X-rays interpreted by me (1pt min.). @ -[None done] CT interpreted by me (1pt min.). @ -[None done] U/S interpreted by me (1pt. min.). @ -[None done] What testing was considered but not performed or refused? (CT, X-rays, U/S, labs)? Why? @ -[None] What meds were considered but not given or refused? Why? @ -[None] Did you discuss the management of the patient with other professionals (professionals i.e. , PA, CIRCUS TRAIN SUPERVISOR, lab, RT, psych nurse, renal social worker, director of archives, teacher, staff combat information center officer, case briefer)? Give summary @ -[Case discussed with EPS personnel. They did staffed the case with psychiatrist and the patient meeting criteria for inpatient psychiatric care. They are working on arranging transfer to geriatric psychiatric unit. Was smoking cessation discussed for >3mins.? @ -[No] Was critical care preformed (if so, how long)? @ -[No] Were there social determinants of health that impacted care today? How? (Homelessness, low income, unemployed, alcoholism, drug addiction, transportation, low edu. Level, literacy, decrease access to med. care, care home, rehab)? @ -[No] Was there de-escalation of care discussed even if they declined (Discuss DNR or withdrawal of care, Hospice)? DNR status @ -[No] What co-morbidities impacted this encounter? (DM, HTN, Smoking, COPD, CAD, Cancer, CVA, ARF, Chemo, Hep., AIDS, mental health diagnosis, sleep apnea, morbid obesity)? @ -[None] Was patient admitted / discharged? Hospital course, mention meds given and route, prescriptions, significant lab abnormalities, going to OR and other pertinent info. @ -[The patient is pending transfer at the time of shift change and signed out. Was patient admitted / discharged? Hospital course, mention meds given and route, prescriptions, significant lab abnormalities, going to OR and other pertinent info. @ -Patient subsequently was transferred for inpatient psychiatric care. Undiagnosed new problem with uncertain prognosis? @ -[No] Drug Therapy requiring intensive monitoring for toxicity (Heparin, Nitro, Insulin, Cardizem)? @ -[No] Were any procedures done? @ -[No] Diagnosis/symptom? @ -[Acute [place] Acute suicidal ideation Acute, or Chronic, or Acute on Chronic? @ -Acute Uncomplicated (without systemic symptoms) or Complicated (systemic symptoms)? @ -[Uncomplicated Side effects of treatment? @ -[No] Exacerbation, Progression, or Severe Exacerbation? @ -[No] Poses a threat to life or bodily function? How? (Chest pain, [place], [place], pneumonia, PE, COPD, DKA, ARF, appy, cholecystitis, CVA, Diverticulitis, Homicidal, Suicidal, threat to staff... and all critical care pts) @ -Yes there is risk of suicide attempt/completion (Randal Callejas) - Lab Data Lab Results 06/02/25 06/02/25 06/02/25 Range/Units 22:45 23:17 23:17 WBC 9.16 (4.50-10.00) 10*3/uL RBC 4.71 (4.10-5.20) 10*6/uL Hgb 13.8 (12.0-15.0) g/dL Hct 42.8 (37.2-46.3) % MCV 90.9 (80.0-97.0) fL MCH 29.3 (27.0-32.0) pg MCHC 32.2 (32.0-37.0) g/dL Plt Count 373 (140-440) 10*3/uL MPV 11.2 (9.5-12.2) fL Immature Gran % (Auto) 0.2 % Neutrophils % 63.0 % Lymphocytes % 26.5 % Monocytes % 8.7 % Eosinophils % 0.7 % Basophils % 0.9 % Immature Gran # 0.02 (0.00-0.04) 10*3/uL Neutrophils # 5.77 (1.80-7.70) 10*3/uL Lymphocytes # 2.43 (0.90-5.00) 10*3/uL Monocytes # 0.80 (0.20-1.00) 10*3/uL Eosinophils # 0.06 (0.04-0.35) 10*3/uL Basophils # 0.08 (0.00-0.10) 10*3/uL Sodium 140 (137-145) mmol/L Potassium 3.5 (3.5-5.1) mmol/L Chloride 102 (98-107) mmol/L Carbon Dioxide 19 L (22-30) mmol/L Anion Gap 19 mmol/L BUN 14 (7-17) mg/dL Creatinine 0.84 (0.52-1.04) mg/dL Est GFR (CKD-EPI)AfAm 87 (>60 ml/min/1.73 sqM) Est GFR (CKD-EPI)NonAf 76 (>60 ml/min/1.73 sqM) Glucose 117 H (74-99) mg/dL Calcium 9.9 (8.4-10.2) mg/dL Total Bilirubin 0.7 (0.2-1.3) mg/dL AST 33 (14-36) U/L ALT 26 (4-34) U/L Alkaline Phosphatase 84 (38-126) U/L Total Protein 7.3 (6.3-8.2) g/dL Albumin 4.6 (3.5-5.0) g/dL Urine Color Urine Appearance (Clear) Urine pH (5.0-8.0) Ur Specific [place] (1.001-1.035) Urine Protein (Negative) Urine Glucose (UA) (Negative) Urine Ketones (Negative) Urine Blood (Negative) Urine Nitrite (Negative) Urine Bilirubin (Negative) Urine Urobilinogen (<2.0) mg/dL Ur Leukocyte Esterase (Negative) Urine RBC (0-5) /hpf Urine WBC (0-5) /hpf Ur Squamous Epith Cells (0-4) /hpf Amorphous Sediment (None) /hpf Urine Bacteria (None) /hpf Hyaline Casts (0-2) /lpf Urine Mucus (None) /hpf Urine Opiates Screen Not Detected (NotDetected) Ur Oxycodone Screen Not Detected (NotDetected) Urine Methadone Screen Not Detected (NotDetected) Ur Barbiturates Screen Not Detected (NotDetected) U Tricyclic Antidepress Not Detected (NotDetected) Ur Phencyclidine Scrn Not Detected (NotDetected) Ur Amphetamines Screen Not Detected (NotDetected) U Methamphetamines Scrn Not Detected (NotDetected) U Benzodiazepines Scrn Detected H (NotDetected) Urine Cocaine Screen Not Detected (NotDetected) U Marijuana (THC) Screen Detected H (NotDetected) SARS-CoV-2 (PCR) (Not Detectd) 06/02/25 06/02/25 Range/Units 23:19 23:24 WBC (4.50-10.00) 10*3/uL RBC (4.10-5.20) 10*6/uL Hgb (12.0-15.0) g/dL Hct (37.2-46.3) % MCV (80.0-97.0) fL MCH (27.0-32.0) pg MCHC (32.0-37.0) g/dL Plt Count (140-440) 10*3/uL MPV (9.5-12.2) fL Immature Gran % (Auto) % Neutrophils % % Lymphocytes % % Monocytes % % Eosinophils % % Basophils % % Immature Gran # (0.00-0.04) 10*3/uL Neutrophils # (1.80-7.70) 10*3/uL Lymphocytes # (0.90-5.00) 10*3/uL Monocytes # (0.20-1.00) 10*3/uL Eosinophils # (0.04-0.35) 10*3/uL Basophils # (0.00-0.10) 10*3/uL Sodium (137-145) mmol/L Potassium (3.5-5.1) mmol/L Chloride (98-107) mmol/L Carbon Dioxide (22-30) mmol/L Anion Gap mmol/L BUN (7-17) mg/dL Creatinine (0.52-1.04) mg/dL Est GFR (CKD-EPI)AfAm (>60 ml/min/1.73 sqM) Est GFR (CKD-EPI)NonAf (>60 ml/min/1.73 sqM) Glucose (74-99) mg/dL Calcium (8.4-10.2) mg/dL Total Bilirubin (0.2-1.3) mg/dL AST (14-36) U/L ALT (4-34) U/L Alkaline Phosphatase (38-126) U/L Total Protein (6.3-8.2) g/dL Albumin (3.5-5.0) g/dL Urine Color Yellow Urine Appearance Cloudy H (Clear) Urine pH 5.5 (5.0-8.0) Ur Specific [place] 1.012 (1.001-1.035) Urine Protein Trace H (Negative) Urine Glucose (UA) Negative (Negative) Urine Ketones Negative (Negative) Urine Blood Negative (Negative) Urine Nitrite Negative (Negative) Urine Bilirubin Negative (Negative) Urine Urobilinogen <2.0 (<2.0) mg/dL Ur Leukocyte Esterase Large H (Negative) Urine RBC 14 H (0-5) /hpf Urine WBC >182 H (0-5) /hpf Ur Squamous Epith Cells 3 (0-4) /hpf Amorphous Sediment Occasional H (None) /hpf Urine Bacteria Many H (None) /hpf Hyaline Casts 41 H (0-2) /lpf Urine Mucus Few H (None) /hpf Urine Opiates Screen (NotDetected) Ur Oxycodone Screen (NotDetected) Urine Methadone Screen (NotDetected) Ur Barbiturates Screen (NotDetected) U Tricyclic Antidepress (NotDetected) Ur Phencyclidine Scrn (NotDetected) Ur Amphetamines Screen (NotDetected) U Methamphetamines Scrn (NotDetected) U Benzodiazepines Scrn (NotDetected) Urine Cocaine Screen (NotDetected) U Marijuana (THC) Screen (NotDetected) SARS-CoV-2 (PCR) Not Detected (Not Detectd) Disposition <Teodora Moore - Last Filed: 06/02/25 19:32> <Randal Callejas - Last Filed: 06/10/25 19:45> Clinical Impression: Suicidal ideation, [place] Disposition: TRANSFER TO PSYCH HOSP/UNIT Referrals: None,Stated [REFERRING] - 1-2 days
[2025-06-02 23:10] LABS: Opiate Screen,Urine Not Detected (NotDetected); Phencyclidine Screen,Urine Not Detected (NotDetected)
[2025-06-02 23:11] LABS: Barbiturate Screen,Urine Not Detected (NotDetected); Benzodiazepines Screen,Urine Detected (NotDetected); Oxycodone Screen, Urine Not Detected (NotDetected); Tricyclic Antidepressant,Urine Not Detected (NotDetected); Urn Cannabinoid Scrn Detected (NotDetected)
[2025-06-02] MEDS: ZIPRASIDONE 20 MG VIAL IM STA (23:17)
[2025-06-02] MEDS: LORazepam 1 MG/0.5 ML VIAL IM STA (23:18)
[2025-06-02 23:32] LABS: Basophils # (A) 0.08 10*3/uL (0.00-0.10); Basophils % (A) 0.9 %; Eosinophils # (A) 0.06 10*3/uL (0.04-0.35); Eosinophils % (A) 0.7 %; HCT 42.8 % (37.2-46.3); HGB 13.8 g/dL (12.0-15.0); Lymphocytes # (A) 2.43 10*3/uL (0.90-5.00); Lymphocytes % (A) 26.5 %; MCH 29.3 pg (27.0-32.0); MCHC 32.2 g/dL (32.0-37.0); MCV 90.9 fL (80.0-97.0); Monocytes # (A) 0.80 10*3/uL (0.20-1.00); Monocytes % (A) 8.7 %; Neutrophils # (A) 5.77 10*3/uL (1.80-7.70); Neutrophils % (A) 63.0 %; Platelet Count 373 10*3/uL (140-440); RBC 4.71 10*6/uL (4.10-5.20); RDW 13.5 % (11.5-14.5); WBC 9.16 10*3/uL (4.50-10.00)
[2025-06-02 23:38] LABS: Amorphous Sediment,Urine Occasional /hpf; Bacteria,Urine Many /hpf; Bilirubin,Urine Negative (Negative); Blood,Urine Negative (Negative); Color,Urine Yellow; Glucose,Urine (UA) Negative (Negative); Hyaline Casts,Urine 41 /lpf (0-2); Ketones,Urine Negative (Negative); Leukocyte Esterase,Urine Large (Negative); Mucus,Urine Few /hpf; Nitrite,Urine Negative (Negative); PH, Urine 5.5 (5.0-8.0); Protein,Urine Trace (Negative); RBC,Urine 14 /hpf (0-5); Specific Gravity,Urine 1.012 (1.001-1.035); Squamous Epithelial Cell,Urine 3 /hpf (0-4); Urobilinogen,Urine <2.0 mg/dL (<2.0); WBC,Urine >182 /hpf (0-5)
[2025-06-02 23:47] LABS: AST 33 U/L (14-36); African American GFR (CKD) 87 (>60 ml/min/1.73 sqM); Albumin 4.6 g/dL (3.5-5.0); Alkaline Phosphatase 84 U/L (38-126); Anion Gap 19 mmol/L; Blood Urea Nitrogen 14 mg/dL (7-17); Calcium 9.9 mg/dL (8.4-10.2); Carbon Dioxide 19 mmol/L (22-30); Chloride 102 mmol/L (98-107); Glucose 117 mg/dL (74-99); Non-African American GFR(CKD) 76 (>60 ml/min/1.73 sqM); Potassium 3.5 mmol/L (3.5-5.1); Sodium 140 mmol/L (137-145); Total Protein 7.3 g/dL (6.3-8.2)
[2025-06-03 00:22] LABS: ALT 26 U/L (4-34)
[2025-06-03] MEDS: PREGABALIN 100 MG CAP PO SCH (16:42)
[2025-06-03] MEDS: TOPIRAMATE 25 MG TAB PO SCH (16:42)
[2025-06-03] MEDS: DULoxetine HCL 60 MG CAPSULE.DR PO SCH (16:42)
[2025-06-03 16:47] VITALS: BP 154/73; PULSE 50; RESP 18; TEMP 98.4
[2025-06-03] MEDS ORDERED: MELATONIN 1 MG TAB PO SCH (21:00)
[2025-06-04] MEDS ORDERED: LEVOTHYROXINE 100 MCG TAB PO SCH (06:30)
[2025-06-04] MEDS ORDERED: PANTOPRAZOLE 40 MG TABLET PO SCH (07:30)
[2025-06-04] MEDS ORDERED: LOSARTAN 25 MG TAB PO SCH (09:00)
[2025-06-04] MEDS ORDERED: clonazePAM 1 MG TAB PO SCH (09:00)
[2025-06-04] MEDS ORDERED: MONTELUKAST 10 MG TAB PO SCH (09:00)
[2025-06-04] MEDS ORDERED: RIVASTIGMINE TARTRATE 1.5 MG PO SCH (09:00)
== END 2025-06-03 17:47 ==
LOC: EC 18:11
DX: R45.851 Suicidal ideations (principal); F17.200 Nicotine dependence, unspecified, uncomplicated; Z88.6 Allergy status to analgesic agent; Z91.018 Allergy to other foods
CPT/HCPCS: 82075; 36415; 80053; 85025; 81001; 80306; 87635; 99285; 96372; J2060; J3486